=== PATIENT | female | born 1960 | race Two or more races ===

== ENCOUNTER 2020-03-03 08:37 | Day surgery (SDC) | payer OTHER, SELFPAY ==
[2020-02-26 09:42] VITALS: BMI 33.6
--- NOTE | 2020-02-26 15:22 | HO.ANESPROP2 ---
Documented by User: Olga Smith 02/26/20 15:22 HPI - Anesthesia Eval Consult details Narrative: 60yo F for colonoscopy PMFSH Past Medical History Medical History Anxiety Arthritis Depression Elevated cholesterol HTN (hypertension) Urinary incontinence Surgical History Surgical History H/O lumbar discectomy H/O tubal ligation H/O: hysterectomy History of bladder suspension procedure History of repair of rectocele History of sleeve gastrectomy History of total bilateral knee replacement (TKR) Hx of abdominoplasty Hx of arthroscopic knee surgery Hx of blepharoplasty Hx of colonoscopy S/P Botox injection S/P trigger finger release Social History Social History Smoking Status: Current every day smoker Years Smoked: 40 Smoked in Last 30 Days: Yes Use of substances other than those prescribed or required for medical reasons: No Advance Directives Information Provided: No Recently lost weight without trying: No Meds Allergies Allergy/AdvReac Type Severity Reaction Status Date / Time No Known Allergies Allergy Verified 02/26/20 09:54 [No Known Allergies*] Home Medications Medication Instructions Recorded Confirmed Type amlodipine 5 mg PO DAILY 02/26/20 03/03/20 History bisacodyl [Dulcolax (bisacodyl)] 10 mg PO BID 02/26/20 02/26/20 History escitalopram oxalate [Lexapro] 20 mg PO DAILY 02/26/20 02/26/20 History linaclotide [Linzess] 145 mcg PO QAM 02/26/20 02/26/20 History lorazepam 1 mg PO BID PRN 02/26/20 02/26/20 History pravastatin 80 mg PO BEDTIME 02/26/20 02/26/20 History trazodone 100 mg PO BEDTIME 02/26/20 02/26/20 History ziprasidone HCl [Geodon] 20 mg PO BID 02/26/20 02/26/20 History Exam Exam Date and Time: February 26, 2020 1522 Height,Weight and Vital Signs: Height 5 ft 5 in Weight 91.626 kg Assessment and Plan Assessment Anesthesia Assessment: Chart Reviewed Documented by User: Suyapa Palacios 03/03/20 09:21 PMFSH Past Medical History Medical History Anxiety Arthritis Depression Elevated cholesterol HTN (hypertension) Urinary incontinence Surgical History Surgical History H/O lumbar discectomy H/O tubal ligation H/O: hysterectomy History of bladder suspension procedure History of repair of rectocele History of sleeve gastrectomy History of total bilateral knee replacement (TKR) Hx of abdominoplasty Hx of arthroscopic knee surgery Hx of blepharoplasty Hx of colonoscopy S/P Botox injection S/P trigger finger release Social History Social History Smoking Status: Current every day smoker Years Smoked: 40 Smoked in Last 30 Days: Yes Use of substances other than those prescribed or required for medical reasons: No Advance Directives Information Provided: No Recently lost weight without trying: No Meds Allergies Allergy/AdvReac Type Severity Reaction Status Date / Time No Known Allergies Allergy Verified 02/26/20 09:54 [No Known Allergies*] Home Medications Medication Instructions Recorded Confirmed Type amlodipine 5 mg PO DAILY 02/26/20 03/03/20 History bisacodyl [Dulcolax (bisacodyl)] 10 mg PO BID 02/26/20 02/26/20 History escitalopram oxalate [Lexapro] 20 mg PO DAILY 02/26/20 02/26/20 History linaclotide [Linzess] 145 mcg PO QAM 02/26/20 02/26/20 History lorazepam 1 mg PO BID PRN 02/26/20 02/26/20 History pravastatin 80 mg PO BEDTIME 02/26/20 02/26/20 History trazodone 100 mg PO BEDTIME 02/26/20 02/26/20 History ziprasidone HCl [Geodon] 20 mg PO BID 02/26/20 02/26/20 History Exam Airway Mallampati Class: II TM Dist: >3cm Neck ROM: Full
[2020-03-03 08:50] VITALS: BP 118/68; PULSE 70; RESP 20; TEMP 36.3; O2SAT 94
[2020-03-03] MEDS: Lactated Ringers 1,000 ML 100 ML IVCONT (09:07)
--- NOTE | 2020-03-03 09:26 | MHC.SHP ---
Pre-Procedural Eval Section B Chief Complaint: screening Allergies: Allergies Allergy/AdvReac Type Severity Reaction Status Date / Time No Known Allergies Allergy Verified 02/26/20 09:54 [No Known Allergies*] Plan Patient has been examined and remains a candidate for the planned procedure--yes
--- NOTE | 2020-03-03 10:12 | PM.OP ---
Brief Operative Note Date of procedure: 03/03/20 Pre-op diagnosis: Colon cancer screening, Hx tubular adenoma Post-op diagnosis: same Procedure: Colonoscopy with excisional polypectomy with Cold bx forceps Implants: NONE Surgeon: Nicky Toledo MD Anesthesia: MAC (MARIELA Briscoe) Estimated blood loss (mL): 5 Pathology: other (Polyp @ 52cm) Condition: stable Disposition: PACU
[2020-03-03 10:17] VITALS: BP 100/54; PULSE 67; RESP 16; TEMP 36.1; O2SAT 95
[2020-03-03 10:32] VITALS: BP 104/52; PULSE 62; RESP 16; O2SAT 94
[2020-03-03 10:45] VITALS: BP 132/75; PULSE 61; RESP 16; TEMP 36.1; O2SAT 95
--- NOTE | 2020-03-03 11:01 | HO.POSTANES ---
Post Anesthesia Evaluation Post Anesthesia Evaluation Vital Signs: Vital Signs Temp Pulse Resp BP Pulse Ox 03/03/20 10:45 97 F 61 16 132/75 95 03/03/20 10:32 62 16 104/52 L 94 03/03/20 10:17 97 F 67 16 100/54 L 95 03/03/20 08:50 97.4 F 70 20 118/68 94 Anesthesia: Monitored Mental Status: Awake Pain Control: Satisfactory Nausea/Vomiting: None Hydration: Adequate Anesthesia-Related Issues: No Anes. Related Issues
--- NOTE | 2020-03-04 01:14 | OP_ITS ---
SURGEON: Nicky Toledo MD PROCEDURE PERFORMED: Colonoscopy with excisional polypectomy with the use of the cold biopsy forceps. ESTIMATED BLOOD LOSS: Minimal. COMPLICATIONS: No complications. ANESTHESIA: Monitored. ANESTHESIA Pavel Briscoe CRNA. ASSISTANTS: No customer service assistant. SPECIMENS: Specimens removed; diminutive polyp at 52 cm. PREOPERATIVE DIAGNOSES: History of tubular adenoma, colon cancer screening, symptomatic constipation. POSTOPERATIVE DIAGNOSES: Colonic polyp, minor diverticulosis in the region of the rectosigmoid. POWERHOUSE ENGINEER: Dr. Toledo. FINDINGS: Digital rectal exam revealed slightly decreased sphincter tone. No masses were appreciated. Video colonoscope was introduced without difficulty; however, there was slow movement through the region of the angle of the rectosigmoid, which was significantly difficult to distend. We switched from CO2 to air insufflation in slight movement of the patient from her left side to approximately a 45 degrees angle toward her back and we were slowly able to pass through what seem to be a telescoped (question prolapsed) area of the rectosigmoid and distal sigmoid colon. Eventually, we arrived at the descending colon. We were able to easily facilitate movement through transverse, ascending colon down into the cecal cap. Appendiceal orifice was seen. Ileocecal valve was seen. The prep was excellent. Good mucosal detail was seen. Slow removal of the scope. Polyp was identified and was removed excisionally from the region of 52 cm. No additional lesions were seen. Anorectal verge was clear. There were minor diverticula noted in the region of the rectosigmoid. PLAN AND CURRENT RECOMMENDATIONS: With history of tubular adenomas, she is to continue 5-year asymptomatic screening. GRAFT OR IMPLANTS: No grafts or implants. CONDITION: Postprocedure, stable. Nicky Toledo MD MEN/MODL / [id number] MTDD
== END 2020-03-03 11:05 | disposition home or self-care (01) ==
PROVIDERS: PCP Internal Medicine; Visit Provider Internal Medicine Gastroenterology
PROC: 0DJD8ZZ Inspection of Lower Intestinal Tract, Via Natural or Artificial Opening Endoscopic (ICD-10-PCS; CPT 45378; principal; 2020-03-03 09:30)
DX: Z12.11 Encounter for screening for malignant neoplasm of colon (principal); Z86.010 Personal history of colon polyps; D12.5 Benign neoplasm of sigmoid colon; I10 Essential (primary) hypertension; F33.9 Major depressive disorder, recurrent, unspecified; E78.00 Pure hypercholesterolemia, unspecified; Z79.51 Long term (current) use of inhaled steroids; Z79.899 Other long term (current) drug therapy
CPT/HCPCS: 45380; 88305

== ENCOUNTER → 2020-05-24 09:39 | Outpatient (BNVA) | payer OTHER, SELFPAY | PROVIDERS: PCP Internal Medicine; Visit Provider Nurse Practitioner | DX: Z13.89 Encounter for screening for other disorder (principal) | CPT/HCPCS: Q3014 ==

== ENCOUNTER 2020-09-23 15:03 | Outpatient (REF) | payer OTHER, SELFPAY ==
[2020-09-23 16:15] LABS: Alanine Aminotransferase 21 U/L (0-31); Albumin Level 4.5 g/dL (3.5-5.0); Alkaline Phosphatase 94 U/L (39-117); Anion Gap 15 (12-20); Aspartate Amino Transferase 16 U/L (5-31); Bilirubin Total 0.3 mg/dL (0.0-1.0); Blood Urea Nitrogen 9 mg/dL (9-16); Calcium 9.5 mg/dL (8.4-10.2); Carbon Dioxide 29 mmol/L (22-29); Chloride 101 mmol/L (96-108); Cholesterol 217 mg/dL; Estimated Glomerular Filt Rate > 60; Glucose Random 85 mg/dL (60-115); HDL Cholesterol 40 mg/dL; LDL Cholesterol Calculated 133 mg/dl; Potassium 4.4 mmol/L (3.3-5.1); Sodium 141 mmol/L (135-145); Total Protein 7.7 g/dL (6.5-8.0); Triglycerides 221 mg/dL
[2020-09-23 16:49] LABS: Estimated Average Glucose 111 mg/dL; Hemoglobin A1c % 5.5 %
== END 2020-09-23 15:04 | disposition home or self-care (01) ==
LOC: HO.LAB 15:03
PROVIDERS: PCP Internal Medicine; Visit Provider Internal Medicine
DX: E78.2 Mixed hyperlipidemia (principal); I10 Essential (primary) hypertension; M54.5 Low back pain; R73.01 Impaired fasting glucose
CPT/HCPCS: 36415; 80053; 80061; 83036

== ENCOUNTER 2020-10-07 08:04 | Outpatient (REF) | payer OTHER, SELFPAY ==
--- NOTE | ~2020-10-07 | XR_ITS ---
EXAMINATION: XR SHOULDER, RIGHT CLINICAL INFORMATION: Pain COMPARISON: None TECHNIQUE: 3 views of the right shoulder. FINDINGS: Bone alignment is normal. No fracture or dislocation is seen. The joint space is normal. There is arthritis at the acromioclavicular joint. There is an undersurface acromial osteophyte. Soft tissues are unremarkable. XR/XR shoulder RT min 2V IMPRESSION: Arthritis at the acromioclavicular joint and undersurface acromial osteophyte.
== END 2020-10-07 08:05 | disposition home or self-care (01) ==
LOC: HO.HOSX 08:04
PROVIDERS: Visit Provider Physician Assistant
DX: M75.81 Other shoulder lesions, right shoulder (principal); M25.511 Pain in right shoulder
CPT/HCPCS: 20610; 73030; 99202; J1040

== ENCOUNTER 2020-12-07 17:08 | Emergency (ER) | payer OTHER, SELFPAY ==
[2020-12-07 17:14] VITALS: BP 196/100; PULSE 108; RESP 18; TEMP 36.6; O2SAT 97; BMI 36.0
[2020-12-07 17:36] VITALS: BP 194/101; PULSE 102; RESP 182; TEMP 37.8; O2SAT 95
[2020-12-07 17:40] LABS: Glucose Urine UA NEG (NEG); Leukocyte Esterase Urine 3+ (NEG); Nitrite Urine NEG (NEG); PH 6.5 (5.0-8.0); Specific Gravity - Urine 1.015 (1.005-1.025); UACC Culture Trigger YES; Urine Blood 3+ (NEG); Urine Ketones NEG (NEG); Urine Protein 2+ MG/DL (NEG-TRACE)
[2020-12-07 17:47] LABS: Appearance Urine CLOUDY; Color Urine YELLOW
--- NOTE | 2020-12-07 17:51 | ED_ITS ---
HPI - Female Genitourinary General Chief complaint: Urogenital-Female Stated complaint: uti ? Time Seen by Provider: 12/07/20 17:38 Related Data Home Medications Medication Instructions Recorded Confirmed amlodipine 5 mg tablet 5 mg PO DAILY 02/26/20 03/03/20 bisacodyl 5 mg tablet,delayed 10 mg PO BID 02/26/20 02/26/20 release (Dulcolax (bisacodyl)) escitalopram oxalate 20 mg tablet 20 mg PO DAILY 02/26/20 02/26/20 (Lexapro) lorazepam 1 mg tablet 1 mg PO BID PRN 02/26/20 02/26/20 pravastatin 80 mg tablet 80 mg PO BEDTIME 02/26/20 02/26/20 trazodone 100 mg tablet 100 mg PO BEDTIME 02/26/20 02/26/20 ziprasidone HCl 20 mg capsule 20 mg PO BID 02/26/20 02/26/20 (Geodon) Previous Rx's Medication Instructions Recorded linaclotide 72 mcg capsule 72 mcg PO QAM #30 cap 05/24/20 (Linzess) phenazopyridine 200 mg tablet 200 mg PO TID 3 Days #9 tab 12/07/20 (Pyridium) sulfamethoxazole 800 1 tab PO BID 7 Days #14 tab 12/07/20 mg-trimethoprim 160 mg tablet (Bactrim DS) Allergies Allergy/AdvReac Type Severity Reaction Status Date / Time No Known Allergies Allergy Verified 10/07/20 11:41 [No Known Allergies*] Review of Systems Constitutional: Constitutional: Denies weight gain and Denies weight loss Cardiovascular: Cardiovascular: Reports no additional cardiovascular complaints Respiratory: Respiratory: Reports no additional respiratory complaints Gastrointestinal: Gastrointestinal: Denies abdominal pain, Denies belching, Denies melena, Denies bloating, Denies change in bowel habits, Denies dyspepsia, Denies heartburn, Denies nausea and Denies vomiting Genitourinary: Genitourinary: Reports dysuria, Reports urinary incontinence, Reports urinary hesitancy and Reports urinary urgency Neurologic: Reports system reviewed and no additional complaints, except as documented Psychiatric: Psychiatric: Reports no additional psychiatric complaints PMFSH Past Medical History Medical History Anxiety Arthritis Depression Elevated cholesterol HTN (hypertension) Urinary incontinence Surgical History H/O lumbar discectomy H/O tubal ligation H/O: hysterectomy History of bladder suspension procedure History of repair of rectocele History of sleeve gastrectomy History of total bilateral knee replacement (TKR) Hx of abdominoplasty Hx of arthroscopic knee surgery Hx of blepharoplasty Hx of colonoscopy S/P Botox injection S/P trigger finger release Family History Family History Father Diabetes Heart disease Mother Diabetes Heart disease Family/Other Diabetes Heart disease Social History Social History Household Members: None Alcohol intake: current Alcohol intake frequency: does not drink Cigarettes Per Day: 2 Years Smoked: 40 Advance Directives: No Advance Directives Information Provided: Yes Patient : No Current occupation: right handed Physical Exam Vital Signs: Vital Signs: Last Vital Signs Temp 99.6 F 12/07/20 18:36 Pulse 90 12/07/20 18:36 Resp 18 12/07/20 18:36 BP 213/106 H 12/07/20 18:36 Pulse Ox 96 12/07/20 18:36 Body Mass Index 36.0 Const: General: healthy appearing, no acute distress and well developed Nutritional Appearance: well nourished Orientation/consciousness: patient oriented x3 Neck: Neck: Yes normal visual inspection, Yes full ROM and Yes trachea midline Thyroid: Thyroid normal Resp: Auscultation: clear to auscultation bilaterally Cardio: Rate: regular rate Rhythm: regular rhythm GI: Inspection: Yes normal to inspection and No distended Palpation (GI): No hepatosplenomegaly present Auscultation: normal bowel sounds Skin: General skin exam: elasticity normal, turgor normal and dry skin Neuro: General: patient oriented x3 Course Course Course Narrative: 61-year-old female with past medical history of right rotator cuff tendinitis, tubular adenoma of colon, abdominal bloating, chronic constipation and history of UTIs presenting today with urinary frequency, foul- smelling urine, pain and burning during urination. Patient reports that she gets urinary tract infection every few months. Patient denies any GI symptoms. Denies any blood in her urine. Denies any vaginal discharge. Patient reports that she does have overactive bladder and has been seen by Urology in the past. Patient denies any fever or chills. She reports that she has been drinking plenty fluids. I will obtain a urinalysis. Patient will receive ibuprofen for discomfort. Reevaluation(s) Reevaluation #1: Positive leukocyte, 2+ urine bacteria, 76-150 urine WBC's. Will treat her with Bactrim and Pyridium. Patient does report painful urination. Will send her home with Bactrim for 7 days twice a day as well as Pyridium 3 times a day for 3 days. MDM - Female Genitourinary Lab Data Labs: Lab Results 12/07/20 Range/Units 17:25 Urine Color YELLOW Urine Appearance CLOUDY Urine pH 6.5 (5.0-8.0) Ur Specific [place] 1.015 (1.005-1.025) Urine Protein 2+ H (NEG-TRACE) MG/DL Urine Glucose (UA) NEG (NEG) MG/DL Urine Ketones NEG (NEG) MG/DL Urine Blood 3+ H (NEG) Urine Nitrite NEG (NEG) Ur Leukocyte Esterase 3+ H (NEG) Urine RBC 5-9 H (0) /HPF Urine WBC 76-150 H (0-4) /HPF Ur Squamous Epith Cells TRACE /LPF Urine Bacteria 2+ /LPF Discharge Plan Discharge Clinical Impression: Urinary tract infection Patient Disposition: Home, Self-Care Instructions: Urinary Tract Infection in Women (ED), Urinary Urgency and Frequency (DC) Additional Instructions: You were seen here today for urinary frequency and pain with urination. Your treated with antibiotic and medication to help with pain. Your urine is positive for infection. Please take the antibiotic for 7 days. Take your pain medication for 3 days. This medication might change your urine orange. Make sure you drink plenty fluids. Please follow-up with your urologist in 2-3 days Your blood pressure was high today. Please call your primary care provider so she can adjust your medication. You may return to emergency department if you develop any concerning symptoms. Prescriptions: New sulfamethoxazole-trimethoprim [Bactrim DS] 800-160 mg tablet 1 tab PO BID 7 Days Qty: 14 RF: 0 phenazopyridine [Pyridium] 200 mg tablet 200 mg PO TID 3 Days Qty: 9 RF: 0 No Action amlodipine 5 mg Tablet 5 mg PO DAILY RF: 0 ziprasidone HCl [Geodon] 20 mg Capsule 20 mg PO BID RF: 0 pravastatin 80 mg Tablet 80 mg PO BEDTIME RF: 0 trazodone 100 mg Tablet 100 mg PO BEDTIME RF: 0 bisacodyl [Dulcolax (bisacodyl)] 5 mg Tablet,Delayed Release (Dr/Ec) 10 mg PO BID RF: 0 lorazepam 1 mg Tablet 1 mg PO BID PRN (Reason: Anxiety) RF: 0 escitalopram oxalate [Lexapro] 20 mg Tablet 20 mg PO DAILY RF: 0 Linzess 72 mcg capsule 72 mcg PO QAM Qty: 30 RF: 6 Referrals: Sudha Block MD [Physician] - 2 days Ayan Flores III, MD [Physician] - 2 days Interventions: ED Discharge Assessment Last Done: 12/07/20 20:02 Discharge Date/Time: 12/07/20 20:05
[2020-12-07 18:00] LABS: Bacteria Urine 2+ /LPF; Squamous Epithelial Cell Urine TRACE /LPF
[2020-12-07] MEDS: Ibuprofen 600 MG TABLET PO (18:02)
[2020-12-07 18:36] VITALS: BP 213/106; PULSE 90; RESP 18; TEMP 37.6; O2SAT 96
--- NOTE | 2020-12-07 18:37 | PC.NURSE ---
patient states that after going to the bathroom recently she found a little bit of light red blood in her urine. RN aware.
[2020-12-07] MEDS: Phenazopyridine HCL 200 MG TABLET PO (19:37)
--- NOTE | 2020-12-07 20:00 | PC.NURSE ---
COMPOSITION PROFESSOR AWARE OF VS AND STATES PT WILL NEED TO F/U WITH PCP TOMORROW AND HAVE HER BP MEDICATION EVALUATED.
== END 2020-12-07 20:05 | disposition home or self-care (01) ==
PROVIDERS: Emergency Provider Emergency Medicine
DX: R35.0 Frequency of micturition (principal); R30.0 Dysuria; F17.210 Nicotine dependence, cigarettes, uncomplicated; Z71.6 Tobacco abuse counseling; I10 Essential (primary) hypertension; Z79.899 Other long term (current) drug therapy
CPT/HCPCS: 81001; 81003; 87086; 87088; 87186; 99284

== ENCOUNTER 2020-12-09 19:10 | Emergency (ER) | payer OTHER, SELFPAY ==
[2020-12-09 19:27] VITALS: BP 189/100; PULSE 107; RESP 18; TEMP 36.6; O2SAT 96; BMI 34.3
--- NOTE | 2020-12-09 22:11 | ED_ITS ---
HPI - General Adult General Chief complaint: Headache Stated complaint: high bp Time Seen by Provider: 12/09/20 22:11 Source: patient Mode of arrival: ambulatory Limitations: no limitations History of Present Illness HPI narrative: Patient has history of hypertension felt dizzy had high blood pressure at home noted to be 189/100 when triaged recheck blood pressure was 148/74 but patient feels lousy. Patient is on losartan and amlodipine. Patient denied any nausea/vomiting/stress or anxiety Related Data Home Medications Medication Instructions Recorded Confirmed amlodipine 5 mg PO DAILY 02/26/20 03/03/20 bisacodyl [Dulcolax (bisacodyl)] 10 mg PO BID 02/26/20 02/26/20 escitalopram oxalate [Lexapro] 20 mg PO DAILY 02/26/20 02/26/20 lorazepam 1 mg PO BID PRN 02/26/20 02/26/20 pravastatin 80 mg PO BEDTIME 02/26/20 02/26/20 trazodone 100 mg PO BEDTIME 02/26/20 02/26/20 ziprasidone HCl [Geodon] 20 mg PO BID 02/26/20 02/26/20 Previous Rx's Medication Instructions Recorded linaclotide 72 mcg capsule 72 mcg PO QAM #30 cap 05/24/20 phenazopyridine [Pyridium] 200 mg PO TID 3 Days #9 tab 12/07/20 sulfamethoxazole-trimethoprim 1 tab PO BID 7 Days #14 tab 12/07/20 [Bactrim DS] Allergies Allergy/AdvReac Type Severity Reaction Status Date / Time No Known Allergies Allergy Verified 10/07/20 11:41 [No Known Allergies*] Review of Systems Review of Systems: Constitutional : No Weight loss, No Fever, No Chills ENT/Mouth : No sore throat, No Rhinorrhea Eyes: No Eye Pain, No Swelling Cardiovascular : No Chest Pain, no palpitations Respiratory : No Cough, No Sputum, no shortness of breath Gastrointestinal : no Nausea, No Vomiting, No Diarrhea, No abdominal Pain, no black stools Genitourinary : No Dysuria, No Urinary Frequency Musculoskeletal : No joint pain, No Myalgias, No Joint Swelling Skin : No Skin Lesions, No rash Neuro : No Weakness, No Numbness, No Dizziness, + Headache Psych : No Anxiety/Panic, No Depression Heme/Lymph: No Bruising, No Lymphadenopathy Endocrine : No Polyuria, No Polydipsia All other systems reviewed and are negative [facility] Past Medical History Medical History Anxiety Arthritis Depression Elevated cholesterol HTN (hypertension) Urinary incontinence Surgical History H/O lumbar discectomy H/O tubal ligation H/O: hysterectomy History of bladder suspension procedure History of repair of rectocele History of sleeve gastrectomy History of total bilateral knee replacement (TKR) Hx of abdominoplasty Hx of arthroscopic knee surgery Hx of blepharoplasty Hx of colonoscopy S/P Botox injection S/P trigger finger release Family History Family History Father Diabetes Heart disease Mother Diabetes Heart disease Family/Other Diabetes Heart disease Social History Social History Household Members: None Alcohol intake: current Alcohol intake frequency: does not drink Cigarettes Per Day: 2 Years Smoked: 40 Advance Directives: No Advance Directives Information Provided: Yes Patient : No Current occupation: right handed Physical Exam Vital Signs: Vital Signs: Last Vital Signs Temp 97.9 F 12/09/20 19:27 Pulse 95 12/09/20 23:39 Resp 16 12/09/20 23:39 BP 175/94 H 12/09/20 23:39 Pulse Ox 96 12/09/20 19:27 Body Mass Index 34.3 Appearance: Alert. Oriented X3. No acute distress. Eyes: PERRLA, No Nystagmus ENT: Pharynx normal. Oral Mucosa moist Neck: Normal inspection. Neck supple. CVS: Normal heart rate and rhythm. Pulses normal. Respiratory: No respiratory distress. Equal air entry bilateral, no wheezing/rales/rhonchi Abdomen: Soft and nontender. Bowel sounds are present, no mass palpable, no CVA tenderness Skin: Skin warm and dry. Normal skin color. Normal skin turgor. Extremities: No lower extremity edema. No calf tenderness Neuro: Oriented X 3. No motor deficit. No sensory deficit.No cerebellar signs , cranial nerves II-XII intact Medical Decision Making MDM Narrative Medical decision making narrative: Patient essential hypertension with fluctuating blood pressure before discharge patient's blood pressure increased to 175/94. Patient taking 10 mg of amlodipine unknown dose of losartan. Patient advised to follow with her doctor check blood pressure daily and if blood pressure persistently high maybe take extra dose of losartan and follow with PCP Lab Data Lab results reviewed: Yes I reviewed the patient's lab results. Result diagrams: 12/09/20 22:49 12/09/20 22:49 Labs: Lab Results 12/09/20 12/09/20 Range/Units 22:49 22:49 WBC 6.6 (4.8-10.8) X10*3/uL RBC 4.54 (4.20-5.50) X10*6/uL Hgb 13.1 (12.0-16.0) g/dl Hct 39.4 (37-47) % MCV 86.8 (80-98) fL MCH 28.9 (27.0-33.0) pg MCHC 33.2 (31.0-35.0) g/dl RDW 14.1 (11.0-16.0) % Plt Count 228 (160-400) X10*3/uL MPV 12.0 (9.4-12.3) fL Immature Gran % (Auto) 0.3 (0.0-0.4) % Neut % (Auto) 74.5 H (45-73) % Lymph % (Auto) 15.2 L (20-40) % [place] % (Auto) 7.0 (2-11) % Eos % (Auto) 2.4 (0-4) % Baso % (Auto) 0.6 (0-2) % Lymph # (Auto) 1.0 L (1.2-4.9) X10*3/uL [place] # (Auto) 0.5 (0.1-1.2) X10*3/uL Eos # (Auto) 0.2 (0.0-0.4) X10*3/uL Baso # (Auto) 0.0 (0.0-0.2) X10*3/uL Abs Immat Gran (auto) 0.02 (0.00-0.03) X10*3/uL Absolute Neuts (auto) 4.9 (2.0-8.3) X10*3/uL Absolute Nucleated RBC 0.000 (0.0-0.012) X10*3/uL Nucleated RBC % (auto) 0.0 (0.0-0.2) /100WBC Sodium 140 (135-145) mmol/L Potassium 4.0 (3.3-5.1) mmol/L Chloride 101 (96-108) mmol/L Carbon Dioxide 26 (22-29) mmol/L Anion Gap 17 (12-20) BUN 7 L (9-16) mg/dL Creatinine 0.97 (0.5-1.4) mg/dL Estim Creat Clear Calc 65.5 Estimated GFR 58 Random Glucose 98 (60-115) mg/dL Calcium 9.7 (8.4-10.2) mg/dL Total Bilirubin 0.6 (0.0-1.0) mg/dL AST 14 (5-31) U/L ALT 19 (0-31) U/L Alkaline Phosphatase 91 (39-117) U/L Total Protein 7.8 (6.5-8.0) g/dL Albumin 4.5 (3.5-5.0) g/dL Discharge Plan Discharge Clinical Impression: Hypertension Qualifiers: Hypertension type: primary hypertension Qualified Code(s): I10 - Essential (primary) hypertension Patient Disposition: Home, Self-Care Instructions: Chronic Hypertension (ED) Additional Instructions: Continue taking medication for blood pressure as prescribed check blood pressure daily should be less than 140/90. Follow up with PCP Prescriptions: No Action amlodipine 5 mg Tablet 5 mg PO DAILY RF: 0 ziprasidone HCl [Geodon] 20 mg Capsule 20 mg PO BID RF: 0 pravastatin 80 mg Tablet 80 mg PO BEDTIME RF: 0 trazodone 100 mg Tablet 100 mg PO BEDTIME RF: 0 bisacodyl [Dulcolax (bisacodyl)] 5 mg Tablet,Delayed Release (Dr/Ec) 10 mg PO BID RF: 0 lorazepam 1 mg Tablet 1 mg PO BID PRN (Reason: Anxiety) RF: 0 escitalopram oxalate [Lexapro] 20 mg Tablet 20 mg PO DAILY RF: 0 sulfamethoxazole-trimethoprim [Bactrim DS] 800-160 mg tablet 1 tab PO BID 7 Days Qty: 14 RF: 0 phenazopyridine [Pyridium] 200 mg tablet 200 mg PO TID 3 Days Qty: 9 RF: 0 Linzess 72 mcg capsule 72 mcg PO QAM Qty: 30 RF: 6
[2020-12-09 22:55] LABS: Basophils Percent Auto 0.6 % (0-2); Eosinophils Absolute Auto 0.2 X10*3/uL (0.0-0.4); Eosinophils Percent Auto 2.4 % (0-4); Hematocrit 39.4 % (37-47); Hemoglobin 13.1 g/dl (12.0-16.0); Imm Gran Abs Auto 0.02 X10*3/uL (0.00-0.03); Imm Gran Pct Auto 0.3 % (0.0-0.4); Lymphocytes Percent Auto 15.2 % (20-40); MANUAL DIFF FLAG NO; Mean Corpuscular HGB Conc 33.2 g/dl (31.0-35.0); Mean Corpuscular Hemoglobin 28.9 pg (27.0-33.0); Mean Corpuscular Volume 86.8 fL (80-98); Monocytes Absolute Auto 0.5 X10*3/uL (0.1-1.2); Neutrophils Absolute Auto 4.9 X10*3/uL (2.0-8.3); Neutrophils Percent Auto 74.5 % (45-73); Platelet Count 228 X10*3/uL (160-400); Red Blood Count 4.54 X10*6/uL (4.20-5.50); Red Cell Distribution Width 14.1 % (11.0-16.0); White Blood Count 6.6 X10*3/uL (4.8-10.8)
[2020-12-09 23:24] LABS: Alanine Aminotransferase 19 U/L (0-31); Albumin Level 4.5 g/dL (3.5-5.0); Alkaline Phosphatase 91 U/L (39-117); Anion Gap 17 (12-20); Aspartate Amino Transferase 14 U/L (5-31); Bilirubin Total 0.6 mg/dL (0.0-1.0); Blood Urea Nitrogen 7 mg/dL (9-16); Calcium 9.7 mg/dL (8.4-10.2); Carbon Dioxide 26 mmol/L (22-29); Chloride 101 mmol/L (96-108); Creatinine Clr Calc Pharmacy 65.5; Estimated Glomerular Filt Rate 58; Glucose Random 98 mg/dL (60-115); Sodium 140 mmol/L (135-145); Total Protein 7.8 g/dL (6.5-8.0)
[2020-12-09 23:39] VITALS: BP 175/94; PULSE 95; RESP 16
[2020-12-09] MEDS: Acetaminophen 325 MG TABLET 650 MG PO (23:43)
== END 2020-12-10 00:06 | disposition home or self-care (01) ==
PROVIDERS: Emergency Provider Internal Medicine; PCP Internal Medicine
DX: I10 Essential (primary) hypertension (principal); Z79.899 Other long term (current) drug therapy
CPT/HCPCS: 36415; 80053; 85025; 99283; 99284

== ENCOUNTER 2021-03-06 13:07 | Outpatient (REF) | payer OTHER, SELFPAY ==
[2021-03-06 14:02] LABS: Alanine Aminotransferase 26 U/L (0-31); Albumin Level 4.2 g/dL (3.5-5.0); Alkaline Phosphatase 80 U/L (39-117); Anion Gap 12 (12-20); Aspartate Amino Transferase 21 U/L (5-31); Bilirubin Total 0.6 mg/dL (0.0-1.0); Blood Urea Nitrogen 7 mg/dL (9-16); Calcium 9.2 mg/dL (8.4-10.2); Carbon Dioxide 26 mmol/L (22-29); Chloride 108 mmol/L (96-108); Cholesterol 174 mg/dL; Estimated Glomerular Filt Rate > 60; Glucose Random 98 mg/dL (60-115); HDL Cholesterol 37 mg/dL; LDL Cholesterol Calculated 118 mg/dl; Potassium 4.3 mmol/L (3.3-5.1); Sodium 142 mmol/L (135-145); Total Protein 7.1 g/dL (6.5-8.0); Triglycerides 95 mg/dL
[2021-03-06 14:24] LABS: Thyroid Stimulating Hormone 1.91 uIU/mL (0.32-4.0)
== END 2021-03-06 13:08 | disposition home or self-care (01) ==
LOC: HO.LAB 13:07
PROVIDERS: PCP Internal Medicine; Visit Provider Internal Medicine
DX: E78.2 Mixed hyperlipidemia (principal); S43.421A Sprain of right rotator cuff capsule, initial encounter; R53.83 Other fatigue
CPT/HCPCS: 36415; 80053; 80061; 84443

== ENCOUNTER 2021-06-12 14:54 | Outpatient (REF) | payer OTHER, SELFPAY ==
[2021-06-12 15:47] LABS: Binax Internal Control QC Valid; Binax Now Covid-19 Ag Positive (Negative)
== END 2021-06-12 14:55 | disposition home or self-care (01) ==
LOC: HO.LAB 14:54
PROVIDERS: Visit Provider Internal Medicine
DX: Z20.822 Contact with and (suspected) exposure to COVID-19 (principal)
CPT/HCPCS: C9803

== ENCOUNTER 2021-09-12 14:02 | Emergency (ER) | payer OTHER, SELFPAY ==
--- NOTE | ~2021-09-12 | XR_ITS ---
EXAMINATION: XR CHEST CLINICAL INFORMATION: Chest pain, shortness of breath COMPARISON: 11/25/2018 TECHNIQUE: 2 views of the chest were obtained. FINDINGS: No focal consolidation, pulmonary edema, or pleural effusion. Stable cardiomediastinal silhouette. XR/XR chest 2V IMPRESSION: No acute cardiopulmonary findings.
[2021-09-12 15:00] VITALS: BP 156/87; PULSE 66; RESP 16; TEMP 36.9; O2SAT 96; BMI 33.3
[2021-09-12 15:32] LABS: COVID-19 Test Negative (Negative); Influenza A Negative (Negative); Influenza B2 Negative (Negative)
--- NOTE | 2021-09-12 16:05 | ECG_ITS ---
Test Reason : sob Blood Pressure : / mmHG Vent. Rate : 065 BPM Atrial Rate : 065 BPM P-R Int : 210 ms QRS Dur : 098 ms QT Int : 448 ms P-R-T Axes : 053 000 040 degrees QTc Int : 465 ms Sinus rhythm with sinus arrhythmia with 1st degree A-V block Otherwise normal ECG When compared with ECG of 25-NOV-2018 17:37, NC interval has increased Referred By: Bettye Coreas Electronically Signed By:MICHAEL GUTIERREZ MD
--- NOTE | 2021-09-12 16:06 | ED.SOB ---
HPI - SOB/Dyspnea General Chief Complaint: Upper Respiratory Symptoms Stated Complaint: Covid symptoms Time Seen by Provider: 09/12/21 15:56 Source: patient Mode of arrival: ambulatory Limitations: no limitations History of Present Illness HPI Narrative: Patient presents to the emergency department for evaluation of persistent headache, nonproductive cough, shortness of breath, dyspnea on exertion, and intermittent chest pain. Symptoms present for 10 days. Progressively worsening. Chest pain intermittently at times is worsened by cough and deep breathing but at other times is not. She has been taking DayQuil without improvement. Denies any known sick contacts. Has been vaccinated for COVID-19 x2, has not received influenza vaccine. MD elicited complaint: shortness of breath, cough, pain with inspiration and chest pain Onset (ago): day(s) () Timing: progressively worsening Related Data Home Medications Medication Instructions Recorded Confirmed amlodipine 5 mg tablet 5 mg PO DAILY 02/26/20 03/03/20 bisacodyl 5 mg tablet,delayed 10 mg PO BID 02/26/20 02/26/20 release (Dulcolax (bisacodyl)) escitalopram oxalate 20 mg tablet 20 mg PO DAILY 02/26/20 02/26/20 (Lexapro) lorazepam 1 mg tablet 1 mg PO BID PRN 02/26/20 02/26/20 pravastatin 80 mg tablet 80 mg PO BEDTIME 02/26/20 02/26/20 trazodone 100 mg tablet 100 mg PO BEDTIME 02/26/20 02/26/20 ziprasidone HCl 20 mg capsule 20 mg PO BID 02/26/20 02/26/20 (Geodon) Previous Rx's Medication Instructions Recorded linaclotide 72 mcg capsule 72 mcg PO QAM #30 cap 05/24/20 (Linzess) phenazopyridine 200 mg tablet 200 mg PO TID 3 Days #9 tab 12/07/20 (Pyridium) sulfamethoxazole 800 1 tab PO BID 7 Days #14 tab 12/07/20 mg-trimethoprim 160 mg tablet (Bactrim DS) albuterol sulfate 90 mcg/actuation 2 puff INHALATION Q4-6H PRN #6.7 g 09/12/21 aerosol inhaler amoxicillin 875 mg-potassium 1 tab PO Q12H 7 Days #14 tab 09/12/21 clavulanate 125 mg tablet prednisone 20 mg tablet 40 mg PO DAILY 5 Days #10 tab 09/12/21 Allergies Allergy/AdvReac Type Severity Reaction Status Date / Time No Known Allergies Allergy Verified 10/07/20 11:41 [No Known Allergies*] Review of Systems Review of Systems: Constitutional: Positive fatigue No weight loss, fever, chills, weakness HEENT: No visual loss, blurred vision, double vision or yellow sclera. No hearing loss, sneezing, congestion, runny nose or sore throat. Skin: No rash or itching. Cardiovascular: Positive chest pain No palpitations or pedal edema. Respiratory: Positive shortness of breath, positive dyspnea on exertion, positive cough Gastrointestinal: No anorexia, nausea, vomiting or diarrhea. No abdominal pain or blood in stool. Genitourinary: No burning micturition. No urinary frequency or incontinence. Neurologic: Positive headache No dizziness, syncope, unilateral weakness, ataxia, numbness or tingling in the extremities. Musculoskeletal: No muscle pain, back pain, joint pain or stiffness. Hematologic: No bleeding or bruising. Lymphatics: No enlarged lymph nodes. Psychiatric:No depression or anxiety. Endocrine: No polyuria or polydipsia. [facility] Past Medical History Attestation statement: The following information was validated with the patient. Source: old records reviewed Medical History Anxiety Arthritis Depression Elevated cholesterol HTN (hypertension) Urinary incontinence Surgical History H/O lumbar discectomy H/O tubal ligation H/O: hysterectomy History of bladder suspension procedure History of repair of rectocele History of sleeve gastrectomy History of total bilateral knee replacement (TKR) Hx of abdominoplasty Hx of arthroscopic knee surgery Hx of blepharoplasty Hx of colonoscopy S/P Botox injection S/P trigger finger release Family History Family History Father Diabetes Heart disease Mother Diabetes Heart disease Family/Other Diabetes Heart disease Social History Social History Household Members: None Alcohol intake: current Alcohol intake frequency: does not drink Cigarettes Per Day: 2 Years Smoked: 40 Advance Directives: No Advance Directives Information Provided: No Current occupation: right handed Physical Exam Vital Signs: Vital Signs: Last Vital Signs Temp 98.4 F 09/12/21 15:00 Pulse 66 09/12/21 15:00 Resp 16 09/12/21 15:00 BP 156/87 H 09/12/21 15:00 Pulse Ox 96 09/12/21 15:00 BMI result Body Mass Index 33.3 Vital signs have been reviewed and appeared to be correct. Blood pressure mildly elevated 156/87 Heart rate normal.? Respiration rate normal. Temperature normal.? Oxygen saturation normal. Appearance: Alert.?Oriented to person, place and time. No acute distress.?Normal affect. Eyes: Pupils equal, round and reactive to light.? ENT: Pharynx normal.?? Neck: Normal inspection.? Neck supple.?? CVS: Heart sounds normal. Normal heart rate and rhythm.? Pulses normal.?? Respiratory: No respiratory distress.? Lung sounds clear to auscultation bilaterally, except coarseness left lower lobe.? Abdomen: Soft and non-tender. Normoactive bowel sounds. No pulsatile mass.?? Skin: Skin warm and dry.? Normal skin color.? ? Extremities: No lower extremity edema.? No calf ttp? Neuro: Moves all extremities spontaneously. Sensation intact bilaterally. CN II-XII intact. No focal neuro deficits. Ambulates with normal steady gait. Course Course Course Narrative: Patient is a 61-year-old female with a past medical history of anxiety, arthritis, depression, hypercholesterolemia, hypertension presenting for evaluation head pressure, cough, shortness of breath dyspnea on exertion, intermittent pain. COVID-19 and influenza testing obtained from triage are both negative. Will obtain CBC to evaluate for leukocytosis/ anemia, CMP to evaluate for abnormal electrolytes /abnormal renal function/ abnormal hepatic function, EKG and troponin to evaluate for ischemia/ACS. Chest x-ray to evaluate for consolidation/ infiltrate/ mass/ pulmonary congestion. Disposition pending results. Reevaluation(s) Reevaluation #1: CBC overall unremarkable, CMP is normal. BNP 25. Troponin <3.5, EKG reveals sinus rhythm first-degree AV block, heart score 2, unlikely ACS, she reports that she is taking amlodipine in addition to losartan-HCTZ for her blood pressure. D-dimer 197, unlikely PE. Plan to treat for bronchitis with prednisone, albuterol inhaler, and Augmentin. Discussed reasons to return to the emergency department. Advised to follow-up with primary care provider in 1-3 days. All questions were answered. MDM - SOB/Dyspnea Medical Records Attestation: I reviewed the patient's medical records. Lab Data Attestation: I reviewed the patient's lab results. Result diagrams: 09/12/21 17:39 09/12/21 17:39 Labs: Lab Results 09/12/21 09/12/21 09/12/21 Range/Units 15:08 15:08 17:39 WBC 4.4 L (4.8-10.8) X10*3/uL RBC 4.34 (4.20-5.50) X10*6/uL Hgb 12.5 (12.0-16.0) g/dl Hct 38.2 (37.0-47.0) % MCV 88.0 (80.0-98.0) fL MCH 28.8 (27.0-33.0) pg MCHC 32.7 (31.0-35.0) g/dl RDW 13.4 (11.0-16.0) % Plt Count 237 (160-400) X10*3/uL MPV 10.9 (9.4-12.3) fL Immature Gran % (Auto) 0.5 H (0.0-0.4) % Neut % (Auto) 58.4 (45-73) % Lymph % (Auto) 31.0 (20-40) % Blount % (Auto) 6.4 (2-11) % Eos % (Auto) 2.8 (0-4) % Baso % (Auto) 0.9 (0-2) % Lymph # (Auto) 1.4 (1.2-4.9) X10*3/uL Blount # (Auto) 0.3 (0.1-1.2) X10*3/uL Eos # (Auto) 0.1 (0.0-0.4) X10*3/uL Baso # (Auto) 0.0 (0.0-0.2) X10*3/uL Abs Immat Gran (auto) 0.02 (0.00-0.03) X10*3/uL Absolute Neuts (auto) 2.5 (2.0-8.3) x10*3/uL Absolute Nucleated RBC 0.000 (0.0-0.012) X10*3/uL Nucleated RBC % (auto) 0.0 (0.0-0.2) /100WBC D-Dimer High Sensitivty NG/ML Sodium (135-145) mmol/L Potassium (3.3-5.1) mmol/L Chloride (96-108) mmol/L Carbon Dioxide (22-29) mmol/L Anion Gap (12-20) BUN (9-16) mg/dL Creatinine (0.5-1.4) mg/dL Estim Creat Clear Calc Estimated GFR Random Glucose (60-115) mg/dL Calcium (8.4-10.2) mg/dL Magnesium (1.6-2.6) mg/dL Total Bilirubin (0.0-1.0) mg/dL AST (5-31) U/L ALT (0-31) U/L Alkaline Phosphatase (39-117) U/L Troponin I High Sens (<3.5-17.0) ng/L B-Natriuretic Peptide (<100) pg/mL Total Protein (6.5-8.0) g/dL Albumin (3.5-5.0) g/dL COVID-19 (TERRY) Negative (Negative) COVID-19 Clin Com See Note Influenza Type A (NAYANA) Negative (Negative) Influenza Type B (NAYANA) Negative (Negative) Influenza A & B Note See Note 09/12/21 09/12/21 09/12/21 Range/Units 17:39 17:39 17:39 WBC (4.8-10.8) X10*3/uL RBC (4.20-5.50) X10*6/uL Hgb (12.0-16.0) g/dl Hct (37.0-47.0) % MCV (80.0-98.0) fL MCH (27.0-33.0) pg MCHC (31.0-35.0) g/dl RDW (11.0-16.0) % Plt Count (160-400) X10*3/uL MPV (9.4-12.3) fL Immature Gran % (Auto) (0.0-0.4) % Neut % (Auto) (45-73) % Lymph % (Auto) (20-40) % Blount % (Auto) (2-11) % Eos % (Auto) (0-4) % Baso % (Auto) (0-2) % Lymph # (Auto) (1.2-4.9) X10*3/uL Blount # (Auto) (0.1-1.2) X10*3/uL Eos # (Auto) (0.0-0.4) X10*3/uL Baso # (Auto) (0.0-0.2) X10*3/uL Abs Immat Gran (auto) (0.00-0.03) X10*3/uL Absolute Neuts (auto) (2.0-8.3) x10*3/uL Absolute Nucleated RBC (0.0-0.012) X10*3/uL Nucleated RBC % (auto) (0.0-0.2) /100WBC D-Dimer High Sensitivty 197 NG/ML Sodium 140 (135-145) mmol/L Potassium 4.0 (3.3-5.1) mmol/L Chloride 104 (96-108) mmol/L Carbon Dioxide 26 (22-29) mmol/L Anion Gap 14 (12-20) BUN 10 (9-16) mg/dL Creatinine 0.78 (0.5-1.4) mg/dL Estim Creat Clear Calc 82.1 Estimated GFR > 60 Random Glucose 87 (60-115) mg/dL Calcium 9.2 (8.4-10.2) mg/dL Magnesium 1.8 (1.6-2.6) mg/dL Total Bilirubin 0.3 (0.0-1.0) mg/dL AST 20 (5-31) U/L ALT 28 (0-31) U/L Alkaline Phosphatase 70 (39-117) U/L Troponin I High Sens < 3.5 (<3.5-17.0) ng/L B-Natriuretic Peptide (<100) pg/mL Total Protein 7.0 (6.5-8.0) g/dL Albumin 4.0 (3.5-5.0) g/dL COVID-19 (TERRY) (Negative) COVID-19 Clin Com Influenza Type A (NAYANA) (Negative) Influenza Type B (NAYANA) (Negative) Influenza A & B Note 09/12/21 Range/Units 17:39 WBC (4.8-10.8) X10*3/uL RBC (4.20-5.50) X10*6/uL Hgb (12.0-16.0) g/dl Hct (37.0-47.0) % MCV (80.0-98.0) fL MCH (27.0-33.0) pg MCHC (31.0-35.0) g/dl RDW (11.0-16.0) % Plt Count (160-400) X10*3/uL MPV (9.4-12.3) fL Immature Gran % (Auto) (0.0-0.4) % Neut % (Auto) (45-73) % Lymph % (Auto) (20-40) % Blount % (Auto) (2-11) % Eos % (Auto) (0-4) % Baso % (Auto) (0-2) % Lymph # (Auto) (1.2-4.9) X10*3/uL Blount # (Auto) (0.1-1.2) X10*3/uL Eos # (Auto) (0.0-0.4) X10*3/uL Baso # (Auto) (0.0-0.2) X10*3/uL Abs Immat Gran (auto) (0.00-0.03) X10*3/uL Absolute Neuts (auto) (2.0-8.3) x10*3/uL Absolute Nucleated RBC (0.0-0.012) X10*3/uL Nucleated RBC % (auto) (0.0-0.2) /100WBC D-Dimer High Sensitivty NG/ML Sodium (135-145) mmol/L Potassium (3.3-5.1) mmol/L Chloride (96-108) mmol/L Carbon Dioxide (22-29) mmol/L Anion Gap (12-20) BUN (9-16) mg/dL Creatinine (0.5-1.4) mg/dL Estim Creat Clear Calc Estimated GFR Random Glucose (60-115) mg/dL Calcium (8.4-10.2) mg/dL Magnesium (1.6-2.6) mg/dL Total Bilirubin (0.0-1.0) mg/dL AST (5-31) U/L ALT (0-31) U/L Alkaline Phosphatase (39-117) U/L Troponin I High Sens (<3.5-17.0) ng/L B-Natriuretic Peptide 25 (<100) pg/mL Total Protein (6.5-8.0) g/dL Albumin (3.5-5.0) g/dL COVID-19 (TERRY) (Negative) COVID-19 Clin Com Influenza Type A (NAYANA) (Negative) Influenza Type B (NAYANA) (Negative) Influenza A & B Note Imaging Data Chest x-ray: Radiologist's impression: FINDINGS: No focal consolidation, pulmonary edema, or pleural effusion. Stable cardiomediastinal silhouette. XR/XR chest 2V IMPRESSION: No acute cardiopulmonary findings. Discharge Plan Discharge Clinical Impression: Bronchitis Patient Disposition: Home, Self-Care Instructions: Acute Bronchitis (ED) Additional Instructions: Take prednisone once daily with food for 5 days, use albuterol inhaler as needed for cough or shortness of breath every 4-6 hours, take Augmentin and finish entire course as prescribed. Please follow-up with your primary care provider in 1-3 days. Return to the emergency department with any new or worsening symptoms or concerns. Prescriptions: New albuterol sulfate 90 mcg/actuation HFA aerosol inhaler 2 puff inhalation Q4-6H PRN (Reason: shortness of breath or wheezing) Qty: 6.7 0RF prednisone 20 mg tablet 40 mg PO DAILY 5 Days Qty: 10 0RF amoxicillin-pot clavulanate 875-125 mg tablet 1 tab PO Q12H 7 Days Qty: 14 0RF No Action amlodipine 5 mg Tablet 5 mg PO DAILY 0RF ziprasidone HCl [Geodon] 20 mg Capsule 20 mg PO BID 0RF pravastatin 80 mg Tablet 80 mg PO BEDTIME 0RF trazodone 100 mg Tablet 100 mg PO BEDTIME 0RF bisacodyl [Dulcolax (bisacodyl)] 5 mg Tablet,Delayed Release (Dr/Ec) 10 mg PO BID 0RF lorazepam 1 mg Tablet 1 mg PO BID PRN (Reason: Anxiety) 0RF escitalopram oxalate [Lexapro] 20 mg Tablet 20 mg PO DAILY 0RF sulfamethoxazole-trimethoprim [Bactrim DS] 800-160 mg tablet 1 tab PO BID 7 Days Qty: 14 0RF phenazopyridine [Pyridium] 200 mg tablet 200 mg PO TID 3 Days Qty: 9 0RF Linzess 72 mcg capsule 72 mcg PO QAM Qty: 30 6RF Rx Instructions: DISCONTINUING THE 145MCG DOSE IT IS TOO STRONG.
[2021-09-12 17:43] LABS: MANUAL DIFF FLAG NO
[2021-09-12 17:46] LABS: Basophils Percent Auto 0.9 % (0-2); Eosinophils Absolute Auto 0.1 X10*3/uL (0.0-0.4); Eosinophils Percent Auto 2.8 % (0-4); Hematocrit 38.2 % (37.0-47.0); Hemoglobin 12.5 g/dl (12.0-16.0); Imm Gran Abs Auto 0.02 X10*3/uL (0.00-0.03); Imm Gran Pct Auto 0.5 % (0.0-0.4); Lymphocytes Absolute Auto 1.4 X10*3/uL (1.2-4.9); Mean Corpuscular HGB Conc 32.7 g/dl (31.0-35.0); Mean Corpuscular Hemoglobin 28.8 pg (27.0-33.0); Mean Platelet Volume 10.9 fL (9.4-12.3); Monocytes Absolute Auto 0.3 X10*3/uL (0.1-1.2); Monocytes Percent Auto 6.4 % (2-11); Neutrophils Absolute Auto 2.5 x10*3/uL (2.0-8.3); Neutrophils Percent Auto 58.4 % (45-73); Platelet Count 237 X10*3/uL (160-400); Red Blood Count 4.34 X10*6/uL (4.20-5.50); Red Cell Distribution Width 13.4 % (11.0-16.0); White Blood Count 4.4 X10*3/uL (4.8-10.8)
[2021-09-12 17:55] LABS: D Dimer High Sensitivity 197 NG/ML
[2021-09-12 18:01] LABS: Alanine Aminotransferase 28 U/L (0-31); Alkaline Phosphatase 70 U/L (39-117); Anion Gap 14 (12-20); Aspartate Amino Transferase 20 U/L (5-31); Bilirubin Total 0.3 mg/dL (0.0-1.0); Blood Urea Nitrogen 10 mg/dL (9-16); Calcium 9.2 mg/dL (8.4-10.2); Carbon Dioxide 26 mmol/L (22-29); Chloride 104 mmol/L (96-108); Creatinine Clr Calc Pharmacy 82.1; Estimated Glomerular Filt Rate > 60; Glucose Random 87 mg/dL (60-115); Magnesium 1.8 mg/dL (1.6-2.6); Sodium 140 mmol/L (135-145)
[2021-09-12 18:07] LABS: Troponin-I High Sensitivity < 3.5 ng/L (<3.5-17.0)
[2021-09-12 18:08] LABS: B Type Natriuretic Peptide 25 pg/mL (<100)
== END 2021-09-12 19:13 | disposition home or self-care (01) ==
PROVIDERS: Nurse Practitioner Family; Emergency Provider Emergency Medicine; PCP Internal Medicine
DX: J40 Bronchitis, not specified as acute or chronic (principal); R06.02 Shortness of breath; R07.89 Other chest pain; F17.210 Nicotine dependence, cigarettes, uncomplicated; Z20.822 Contact with and (suspected) exposure to COVID-19; Z71.6 Tobacco abuse counseling; Z79.899 Other long term (current) drug therapy
CPT/HCPCS: 36415; 71046; 80053; 83735; 83880; 84484; 85025; 85379; 87502; 87635; 93005; 99283; 99284

== ENCOUNTER → 2021-10-24 14:16 | Outpatient (BNVA) | payer OTHER, SELFPAY | PROVIDERS: Visit Provider Physician Assistant | DX: M79.601 Pain in right arm (principal) | CPT/HCPCS: 99212; J1040 ==

== ENCOUNTER 2021-11-02 12:50 | Outpatient (REF) | payer OTHER, SELFPAY ==
[2021-11-02 12:55] LABS: MANUAL DIFF FLAG NO
[2021-11-02 13:26] LABS: Basophils Absolute Auto 0.1 X10*3/uL (0.0-0.2); Basophils Percent Auto 1.3 % (0-2); Eosinophils Absolute Auto 0.1 X10*3/uL (0.0-0.4); Hematocrit 39.3 % (37.0-47.0); Hemoglobin 12.8 g/dl (12.0-16.0); Imm Gran Abs Auto 0.02 X10*3/uL (0.00-0.03); Imm Gran Pct Auto 0.3 % (0.0-0.4); Lymphocytes Absolute Auto 1.5 X10*3/uL (1.2-4.9); Mean Corpuscular HGB Conc 32.6 g/dl (31.0-35.0); Mean Corpuscular Hemoglobin 28.7 pg (27.0-33.0); Mean Corpuscular Volume 88.1 fL (80.0-98.0); Mean Platelet Volume 11.6 fL (9.4-12.3); Monocytes Absolute Auto 0.5 X10*3/uL (0.1-1.2); Monocytes Percent Auto 8.1 % (2-11); Neutrophils Absolute Auto 3.7 x10*3/uL (2.0-8.3); Neutrophils Percent Auto 62.3 % (45-73); Platelet Count 238 X10*3/uL (160-400); Red Blood Count 4.46 X10*6/uL (4.20-5.50); White Blood Count 5.9 X10*3/uL (4.8-10.8)
[2021-11-02 14:02] LABS: Alanine Aminotransferase 21 U/L (0-31); Albumin Level 4.3 g/dL (3.5-5.0); Alkaline Phosphatase 81 U/L (39-117); Anion Gap 14 (12-20); Aspartate Amino Transferase 16 U/L (5-31); Bilirubin Total 0.3 mg/dL (0.0-1.0); Blood Urea Nitrogen 14 mg/dL (9-16); Carbon Dioxide 27 mmol/L (22-29); Chloride 101 mmol/L (96-108); Cholesterol 193 mg/dL; Estimated Glomerular Filt Rate > 60; Glucose Random 120 mg/dL (60-115); HDL Cholesterol 47 mg/dL; LDL Cholesterol Calculated 117 mg/dl; Potassium 4.1 mmol/L (3.3-5.1); Sodium 138 mmol/L (135-145); Total Protein 7.3 g/dL (6.5-8.0); Triglycerides 146 mg/dL
[2021-11-02 14:11] LABS: Thyroid Stimulating Hormone 2.23 uIU/mL (0.32-4.0)
[2021-11-02 14:13] LABS: Erythrocyte Sedimentation Rate 7 MM/HR (0-20)
== END 2021-11-02 12:51 | disposition home or self-care (01) ==
LOC: HO.LAB 12:50
PROVIDERS: PCP Internal Medicine; Visit Provider Internal Medicine
DX: E78.00 Pure hypercholesterolemia, unspecified (principal); I10 Essential (primary) hypertension; M06.9 Rheumatoid arthritis, unspecified; R73.01 Impaired fasting glucose
CPT/HCPCS: 36415; 80053; 80061; 84443; 85025; 85652

== ENCOUNTER → 2021-11-28 13:52 | Outpatient (BNVA) | payer OTHER, SELFPAY | PROVIDERS: PCP Internal Medicine; Visit Provider Nurse Practitioner Family | DX: M75.81 Other shoulder lesions, right shoulder (principal); M19.011 Primary osteoarthritis, right shoulder | CPT/HCPCS: 99202 ==

== ENCOUNTER 2021-12-12 12:00 | Outpatient (RCR) | payer OTHER, SELFPAY ==
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
--- NOTE | 2021-10-15 23:27 | P.PNPS_ITS ---
TMS Daily Progress Note Daily TMS Progress Note Date of Service: 10/13/21 Week #: 1 Treatment #(06-25): 1 PHQ-9 Pre-Treatment (06-22): 26 PHQ-9 Most Recent (06-22): 26 Reviewed: TMS Tech Note Reviewed Verification: I have reviewed the TMS Product Manufacturing Professional Note and agree with the contents. The patient remains a candidate to continue TMS treatment per protocol. Assessment and Plan (1) Major depressive disorder, recurrent severe without psychotic features: Status: Acute (2) Chronic post-traumatic stress disorder (PTSD): Status: Acute Plan initial mapping completed was difficult with high intensity required
--- NOTE | 2021-10-16 23:29 | HO.TMSDAILY2 ---
TMS Daily Progress Note Daily TMS Progress Note Date of Service: 10/16/21 Week #: 1 Treatment #(06-25): 2 PHQ-9 Pre-Treatment (06-22): 26 PHQ-9 Most Recent (06-22): 26 Reviewed: TMS Tech Note Reviewed Verification: I have reviewed the TMS Atm Technician Note and agree with the contents. The patient remains a candidate to continue TMS treatment per protocol.
--- NOTE | 2021-10-17 23:04 | HO.TMSDAILY2 ---
TMS Daily Progress Note Daily TMS Progress Note Date of Service: 10/17/21 Week #: 1 Treatment #(06-25): 3 PHQ-9 Pre-Treatment (06-22): 26 PHQ-9 Most Recent (06-22): 26 Reviewed: TMS Tech Note Reviewed Verification: I have reviewed the TMS Retail Salesperson Note and agree with the contents. The patient remains a candidate to continue TMS treatment per protocol.
--- NOTE | 2021-10-18 10:22 | HO.TMSDAILY2 ---
TMS Daily Progress Note Daily TMS Progress Note Date of Service: 10/18/21 Week #: 1 Treatment #(06-25): 4 PHQ-9 Pre-Treatment (06-22): 26 PHQ-9 Most Recent (06-22): 26 Reviewed: TMS Tech Note Reviewed Verification: I have reviewed the TMS Assurance Manager Insurance Note and agree with the contents. The patient remains a candidate to continue TMS treatment per protocol.
--- NOTE | 2021-10-20 21:46 | P.PNPS_ITS ---
TMS Daily Progress Note Daily TMS Progress Note Date of Service: 10/19/21 Week #: 1 Treatment #(06-25): 5 PHQ-9 Pre-Treatment (06-22): 26 PHQ-9 Most Recent (06-22): 26 Reviewed: TMS Tech Note Reviewed (for 10/19/21 tx ) Verification: I have reviewed the TMS Parachute Cushion Installer Note and agree with the contents. The patient remains a candidate to continue TMS treatment per protocol. Assessment and Plan (1) Major depressive disorder, recurrent severe without psychotic features: Status: Acute (2) Chronic post-traumatic stress disorder (PTSD): Status: Acute Plan Continue left-sided treatment patient is tolerating will had right-sided treatment per literature for anxiety and additional depression support
--- NOTE | 2021-10-20 21:48 | P.PNPS_ITS ---
TMS Daily Progress Note Daily TMS Progress Note Date of Service: 10/24/21 Week #: 2 Treatment #(06-25): 6 PHQ-9 Pre-Treatment (06-22): 26 PHQ-9 Most Recent (06-22): 26 Reviewed: TMS Tech Note Reviewed Verification: I have reviewed the TMS Disease And Insect Control Boss Note and agree with the contents. The patient remains a candidate to continue TMS treatment per protocol. Assessment and Plan (1) Major depressive disorder, recurrent severe without psychotic features: Status: Acute (2) Chronic post-traumatic stress disorder (PTSD): Status: Acute Plan Patient tolerating treatment with minimal discomfort continue treatment plan
--- NOTE | 2021-10-24 18:07 | HO.TMSDAILY2 ---
TMS Daily Progress Note Daily TMS Progress Note Date of Service: 10/24/21 Week #: 2 Treatment #(06-25): 7 PHQ-9 Pre-Treatment (06-22): 26 PHQ-9 Most Recent (06-22): 26 Reviewed: TMS Tech Note Reviewed Verification: I have reviewed the TMS Quality Control Microbiology Supervisor Note and agree with the contents. The patient remains a candidate to continue TMS treatment per protocol. Assessment and Plan (1) Major depressive disorder, recurrent severe without psychotic features: Status: Acute (2) Chronic post-traumatic stress disorder (PTSD): Status: Acute Plan Patient has been getting transitory headaches discuss with tech remapping
--- NOTE | 2021-10-25 11:09 | HO.TMSDAILY2 ---
TMS Daily Progress Note Daily TMS Progress Note Date of Service: 10/25/21 Week #: 2 Treatment #(06-25): 8 PHQ-9 Pre-Treatment (06-22): 26 PHQ-9 Most Recent (06-22): 26 Reviewed: TMS Tech Note Reviewed Verification: I have reviewed the TMS Residential Carpet Installer Note and agree with the contents. The patient remains a candidate to continue TMS treatment per protocol. c/o headache
--- NOTE | 2021-10-26 16:21 | P.PNPS_ITS ---
TMS Daily Progress Note Daily TMS Progress Note Date of Service: 10/26/21 Week #: 2 Treatment #(06-25): 8 PHQ-9 Pre-Treatment (06-22): 26 PHQ-9 Most Recent (06-22): 26 Reviewed: TMS Tech Note Reviewed Verification: I have reviewed the TMS Primer And Powder Canning Leader Note and agree with the contents. The patient remains a candidate to continue TMS treatment per protocol. Assessment and Plan (1) Major depressive disorder, recurrent severe without psychotic features: Status: Acute Plan remap tomorrow
--- NOTE | 2021-10-27 22:57 | HO.TMSDAILY2 ---
TMS Daily Progress Note Daily TMS Progress Note Date of Service: 10/27/21 Week #: 2 Treatment #(06-25): 9 PHQ-9 Pre-Treatment (06-22): 26 PHQ-9 Most Recent (06-22): 26 Reviewed: TMS Mapping/Re-mapping completed Verification: I have reviewed the TMS Military Administrative Technician Note and agree with the contents. The patient remains a candidate to continue TMS treatment per protocol. remapping completed lower MT
--- NOTE | 2021-10-30 16:20 | P.PNPS_ITS ---
TMS Daily Progress Note Daily TMS Progress Note Date of Service: 10/30/21 Treatment #(06-25): 9 PHQ-9 Pre-Treatment (06-22): 26 PHQ-9 Most Recent (06-22): 26 Verification: I have reviewed the TMS Palliative Care Nurse Practitioner Note and agree with the contents. The patient remains a candidate to continue TMS treatment per protocol.
--- NOTE | 2021-11-13 22:56 | HO.TMSDAILY2 ---
TMS Daily Progress Note Daily TMS Progress Note Date of Service: 11/13/21 Week #: 5 Treatment #(06-25): 21 PHQ-9 Pre-Treatment (06-22): 26 PHQ-9 Most Recent (06-22): 26 Reviewed: TMS Tech Note Reviewed Verification: I have reviewed the TMS Technology Risk Intern Note and agree with the contents. The patient remains a candidate to continue TMS treatment per protocol. Assessment and Plan (1) Major depressive disorder, recurrent severe without psychotic features: Status: Acute (2) Chronic post-traumatic stress disorder (PTSD): Status: Acute Plan cont tx plan
--- NOTE | 2021-11-14 22:06 | P.PNPS_ITS ---
TMS Daily Progress Note Daily TMS Progress Note Date of Service: 11/15/21 Week #: 5 Treatment #(06-25): 22 PHQ-9 Pre-Treatment (06-22): 26 PHQ-9 Most Recent (06-22): 26 Reviewed: TMS Tech Note Reviewed Verification: I have reviewed the TMS Copying Machine Mechanic Note and agree with the contents. The patient remains a candidate to continue TMS treatment per protocol.
--- NOTE | 2021-11-16 | P.PNPS_ITS ---
TMS Daily Progress Note Daily TMS Progress Note Date of Service: 11/16/21 Week #: 5 Treatment #(06-25): 23 PHQ-9 Pre-Treatment (06-22): 26 PHQ-9 Most Recent (06-22): 26 Reviewed: TMS Tech Note Reviewed Verification: I have reviewed the TMS Free Lance Artist Note and agree with the contents. The patient remains a candidate to continue TMS treatment per protocol.
--- NOTE | 2021-11-17 19:06 | HO.TMSDAILY2 ---
TMS Daily Progress Note Daily TMS Progress Note Date of Service: 11/17/21 Week #: 5 Treatment #(06-25): 25 PHQ-9 Pre-Treatment (06-22): 26 PHQ-9 Most Recent (06-22): 26 Reviewed: TMS Tech Note Reviewed Verification: I have reviewed the TMS Communication Consultant Note and agree with the contents. The patient remains a candidate to continue TMS treatment per protocol.
--- NOTE | 2021-11-20 23:23 | HO.TMSDAILY2 ---
TMS Daily Progress Note Daily TMS Progress Note Date of Service: 11/20/21 Week #: 6 Treatment #(06-25): 26 PHQ-9 Pre-Treatment (06-22): 26 PHQ-9 Most Recent (06-22): 26 Reviewed: TMS Tech Note Reviewed Verification: I have reviewed the TMS Career Development Coordinator Note and agree with the contents. The patient remains a candidate to continue TMS treatment per protocol.
--- NOTE | 2021-11-22 13:58 | P.PNPS_ITS ---
TMS Daily Progress Note Daily TMS Progress Note Date of Service: 11/23/21 Week #: 6 Treatment #(06-25): 28 PHQ-9 Pre-Treatment (06-22): 26 PHQ-9 Most Recent (06-22): 26 Reviewed: TMS Tech Note Reviewed Verification: I have reviewed the TMS Manager Disaster Recovery Note and agree with the contents. The patient remains a candidate to continue TMS treatment per protocol.
--- NOTE | 2021-11-23 23:49 | P.PNPS_ITS ---
TMS Daily Progress Note Daily TMS Progress Note Date of Service: 11/23/21 Week #: 6 Treatment #(06-25): 29 PHQ-9 Pre-Treatment (06-22): 26 PHQ-9 Most Recent (06-22): 26 Reviewed: TMS Tech Note Reviewed Verification: I have reviewed the TMS Neurology Physician Note and agree with the contents. The patient remains a candidate to continue TMS treatment per protocol.
--- NOTE | 2021-11-30 13:32 | P.PNPS_ITS ---
TMS Daily Progress Note Daily TMS Progress Note Date of Service: 11/24/21 Week #: 6 Treatment #(06-25): 30 PHQ-9 Pre-Treatment (06-22): 26 PHQ-9 Most Recent (06-22): 26 Reviewed: TMS Tech Note Reviewed Verification: I have reviewed the TMS Plastic Shaper Note and agree with the contents. The patient remains a candidate to continue TMS treatment per protocol.
--- NOTE | 2021-11-30 20:19 | P.PNPS_ITS ---
TMS Daily Progress Note Daily TMS Progress Note Date of Service: 12/03/21 Week #: 7 Treatment #(06-25): 32 PHQ-9 Pre-Treatment (06-22): 26 PHQ-9 Most Recent (06-22): 26 Reviewed: TMS Tech Note Reviewed Verification: I have reviewed the TMS Pharmaceutical Service Representative Note and agree with the contents. The patient remains a candidate to continue TMS treatment per protocol.
--- NOTE | 2021-12-03 20:18 | HO.TMSDAILY2 ---
TMS Daily Progress Note Daily TMS Progress Note Date of Service: 12/03/21 Week #: 7 Treatment #(06-25): 31 PHQ-9 Pre-Treatment (06-22): 26 PHQ-9 Most Recent (06-22): 26 Reviewed: TMS Tech Note Reviewed Verification: I have reviewed the TMS Electric Fork Operator Note and agree with the contents. The patient remains a candidate to continue TMS treatment per protocol.
--- NOTE | 2021-12-04 22:11 | P.PNPS_ITS ---
TMS Daily Progress Note Daily TMS Progress Note Date of Service: 12/04/21 Week #: 7 Treatment #(06-25): 33 PHQ-9 Pre-Treatment (06-22): 26 PHQ-9 Most Recent (06-22): 26 Reviewed: TMS Tech Note Reviewed Verification: I have reviewed the TMS Secondary Special Education Teacher Note and agree with the contents. The patient remains a candidate to continue TMS treatment per protocol.
--- NOTE | 2021-12-06 08:19 | HO.TMSDAILY2 ---
TMS Daily Progress Note Daily TMS Progress Note Date of Service: 12/06/21 Week #: 8 Treatment #(06-25): 35 PHQ-9 Pre-Treatment (06-22): 26 PHQ-9 Most Recent (06-22): 26 Reviewed: TMS Tech Note Reviewed Verification: I have reviewed the TMS Pest Control Worker Note and agree with the contents. The patient remains a candidate to continue TMS treatment per protocol. Assessment and Plan (1) Major depressive disorder, recurrent severe without psychotic features: Status: Acute (2) Chronic post-traumatic stress disorder (PTSD): Status: Acute Plan The patient a shows clear improvement
--- NOTE | 2021-12-12 23:08 | HO.TMSDAILY2 ---
TMS Daily Progress Note Daily TMS Progress Note Date of Service: 12/12/21 Week #: 8 Treatment #(06-25): 36 PHQ-9 Pre-Treatment (06-22): 26 PHQ-9 Most Recent (06-22): 26 Reviewed: TMS Tech Note Reviewed Verification: I have reviewed the TMS Crisis Intervention Counselor Note and agree with the contents. The patient remains a candidate to continue TMS treatment per protocol. Assessment and Plan (1) Major depressive disorder, recurrent severe without psychotic features: Status: Acute (2) Chronic post-traumatic stress disorder (PTSD): Status: Acute Plan The patient is seen for 20 minutes prior to her last treatment. Patient has not had significant side effects and has shown marked improvement in mood energy ability to enjoy things concentrate and function. She continues to go to the day treatment program through [facility] which has been quite helpful. The patient is feeling better enough that she is willing to consider a part-time job and is aware that her isolation is unhealthy for her. She will continue in treatment with her psychiatrist Dionisio jha [employer]LL [employer] OPERATOR [employer] The patient is aware if she does suffer significant relapse symptoms we can reconsider a TMS protocol. This has been the best patient has felt in a number of years
== END 2022-11-05 17:22 | disposition home or self-care (01) ==
LOC: HO.PTMS 12:00
PROVIDERS: Visit Provider Psychiatry & Neurology Psychiatry
DX: F33.2 Major depressive disorder, recurrent severe without psychotic features (principal); F43.12 Post-traumatic stress disorder, chronic
CPT/HCPCS: 90867; 90868

== ENCOUNTER 2022-05-04 15:17 | Emergency (ER) | payer OTHER, SELFPAY ==
--- NOTE | ~2022-05-04 | XR_ITS ---
EXAMINATION: XR HAND, RIGHT CLINICAL INFORMATION: Laceration from glass. COMPARISON: None TECHNIQUE: PA, lateral, and oblique views of the right hand. FINDINGS: There is a bandage over the fifth metacarpal phalangeal joint region. No radiopaque foreign body. No air in the soft tissue. No fracture or dislocation. Mild degenerative change of the first metacarpal carpal joint of joint narrowing marginal bone spur. Mild joint narrowing marginal bone spurs of the DIP joints of the second through fifth digits. XR/XR hand RT 2V IMPRESSION: 1. No acute abnormality. 2. No radiopaque foreign body. 3. Mild degenerative change of the hand.
[2022-05-04 16:27] VITALS: BP 142/75; PULSE 82; RESP 16; TEMP 36.6; O2SAT 96; BMI 35.2
--- NOTE | 2022-05-04 17:56 | ED_ITS ---
HPI - Wound/Laceration General Chief Complaint: Wound/Laceration Stated Complaint: R Hand Lac Injury 05/04/22 Time Seen by Provider: 05/04/22 17:35 Source: patient Mode of arrival: ambulatory Limitations: no limitations History of Present Illness HPI narrative: 62-year-old female presenting to the ER with complaints of a laceration to the right lateral aspect of her hand that occurred prior to arrival while she was washing a glass. She reports that she is unsure she is up-to-date on tetanus although is refusing tetanus vaccine at this time. She denies any bony tenderness any thoughts foreign bodies or any other complaints concerns or injuries at this time. Onset (ago): hour(s) ( Few hours prior to arrival) Extremity Location: right: hand Place: home Context: accidental Associated symptoms: pain Treatments prior to arrival: bandage Related Data Home Medications Medication Instructions Recorded Confirmed amlodipine 5 mg tablet 5 mg PO DAILY 02/26/20 11/28/21 losartan 100 1 tab PO DAILY 10/24/21 11/28/21 mg-hydrochlorothiazide 25 mg tablet vilazodone 40 mg tablet (Viibryd) 40 mg PO QAM 10/24/21 11/28/21 acetaminophen 500 mg capsule 1,000 mg PO Q6H PRN 11/28/21 11/28/21 ibuprofen 200 mg capsule 400 mg PO Q8H 11/28/21 11/28/21 lorazepam 0.5 mg tablet 0.5 mg PO TID PRN 11/28/21 11/28/21 naproxen 250 mg tablet 250 mg PO BID PRN 11/28/21 11/28/21 trazodone 100 mg tablet 100 mg PO BEDTIME 11/28/21 11/28/21 Previous Rx's Medication Instructions Recorded cephalexin 500 mg capsule 500 mg PO BID 7 days #14 caps 05/04/22 Allergies Allergy/AdvReac Type Severity Reaction Status Date / Time No Known Allergies Allergy Verified 11/28/21 14:09 [No Known Allergies*] Review of Systems Review of Systems: Constitutional : No Fever, No Chills, Cardiovascular : No Chest Pain, No SOB Respiratory : No Dyspnea Gastrointestinal : No abdominal pain Musculoskeletal : No Joint Swelling Skin : positive skin laceration, No Foreign bodies, No rash, No surrounding erythema Neuro : No Weakness, No Numbness/tingling Psych : No SI/HI/thoughts of self injury Yes all other systems are reviewed and are negative [facility] Past Medical History Attestation statement: The following information was validated with the patient. Source: old records reviewed and nursing notes reviewed Medical History Anxiety Arthritis Chronic post-traumatic stress disorder (PTSD) Depression Elevated cholesterol HTN (hypertension) Major depressive disorder, recurrent severe without psychotic features Urinary incontinence Surgical History H/O lumbar discectomy H/O tubal ligation H/O: hysterectomy History of bladder suspension procedure History of repair of rectocele History of sleeve gastrectomy History of total bilateral knee replacement (TKR) Hx of abdominoplasty Hx of arthroscopic knee surgery Hx of blepharoplasty Hx of colonoscopy S/P Botox injection S/P trigger finger release Family History Family History Father Diabetes Heart disease Mother Diabetes Heart disease Family/Other Diabetes Heart disease Social History Social History Household Members: None Alcohol intake: current Alcohol intake frequency: does not drink Cigarettes Per Day: 2 Years Smoked: 40 Advance Directives: No Advance Directives Information Provided: No Current occupational status: unemployed Current occupation: right handed Physical Exam Vital Signs: Vital Signs: Last Vital Signs Temp 97.8 F 05/04/22 16:27 Pulse 82 05/04/22 16:27 Resp 16 05/04/22 16:27 BP 142/75 H 05/04/22 16:27 Pulse Ox 96 05/04/22 16:27 O2 Del Method 05/04/22 16:27 BMI result Body Mass Index 35.2 vital signs have been reviewed as normal and appeared to be correct. Blood pressure 142/75 Heart rate normal. Respiration rate normal. Temperature normal. Oxygen saturation normal. Appearance: Alert. Oriented X3. No acute distress. Head: Normal external exam. Normocephalic. Atraumatic. Eyes: PERRLA. EOMI. Conjunctiva and sclera normal. Eyelids normal. ENT: Pharynx normal. Uvula midline. Moist mucous membranes. Neck: Normal inspection. Neck supple. FROM. CVS: Normal heart rate and rhythm. Respiratory: No respiratory distress. Painless inspiration. Skin: Skin warm and dry. Normal skin color. Normal skin turgor. No rashes/lesions/lacerations noted. Extremities: to left hand lateral aspect/ulnar aspect at the 5th metacarpal patient has a 2 cm intermediate laceration. No active bleeding or bony tenderness or foreign bodies noted. No obvious ligamentous or tendon injury noted. She has full range of motion all finger/ hand and wrist joint. Otherwise all other extremities exhibit normal range of motion nontender. Neuro: Oriented X 3. No motor deficit. No sensory deficit. Reflexes normal. Normal steady gait. No focal neuro deficits noted. Vascular: + radial pulses/+ 2 distal pedal pulses/+2 dorsalis pedis b/l. Normal cap refill. No cyanosis noted to upper extremity nails and lower extremity toes nails. Course Course Course Narrative: Patient now status post laceration repair With 5 simple interrupted stitches. Patient refusing tetanus vaccine. X-ray obtained and negative for any acute processes. Tetanus updated. Will DC home with symptomatic treatment antibiotics along with instructions to return in 10-14 days for suture removal and to follow up prior if signs of infection. Patient understands agrees the plan. Procedures Laceration Laceration 1: Site: hand Side (If applicable): right Size (cm): 2 Description: linear Depth: simple, single layer Local Anesthetic: lidocaine 1% Amount of anesthesia used (mL): 4 Pre-repair: wound explored, irrigated extensively and deep structures intact Skin layer closed with: nylon Size (cm): 4-0 Number of sutures: 5 Technique: simple, interrupted Discharge Plan Discharge Clinical Impression: Laceration of hand, right Patient Disposition: Home, Self-Care Instructions: Laceration (ED) Prescriptions: New cephalexin 500 mg capsule 500 mg PO BID 7 Days Qty: 14 0RF No Action amlodipine 5 mg Tablet 5 mg PO DAILY trazodone 100 mg Tablet 100 mg PO BEDTIME losartan-hydrochlorothiazide 100-25 mg tablet 1 tab PO DAILY Viibryd 40 mg tablet 40 mg PO QAM lorazepam 0.5 mg tablet 0.5 mg PO TID PRN naproxen 250 mg tablet 250 mg PO BID PRN acetaminophen 500 mg capsule 1,000 mg PO Q6H PRN ibuprofen 200 mg capsule 400 mg PO Q8H Referrals: Umm Juarez PA [Emergency Midlevel Provider] - 10 days (for suture removal)
[2022-05-04] MEDS: Lidocaine HCl 1 % MPF 2 ML VIAL INFILTRATI ×2 (18:00)
--- NOTE | 2022-05-04 18:13 | PC.NURSE ---
Called pharmacy to bring Bacitracin to ED. Unavailable in ED/EMC pyxis machines. Provider aware.
== END 2022-05-04 18:40 | disposition home or self-care (01) ==
PROVIDERS: Emergency Provider Emergency Medicine; PCP Internal Medicine
DX: S61.411A Laceration without foreign body of right hand, initial encounter (principal); M79.641 Pain in right hand; W25.XXXA Contact with sharp glass, initial encounter; Y93.G1 Activity, food preparation and clean up; Y92.000 Kitchen of unspecified non-institutional (private) residence as the place of occurrence of the external cause; Y99.9 Unspecified external cause status
CPT/HCPCS: 12041; 73120; 99282; 99283; 99284

== ENCOUNTER 2022-05-25 15:49 | Outpatient (REF) | payer OTHER, SELFPAY ==
[2022-05-25 17:31] LABS: Estimated Average Glucose 114 mg/dL; Hemoglobin A1c % 5.6 %
[2022-05-25 17:45] LABS: Anion Gap 13 (12-20)
[2022-05-25 17:47] LABS: Alanine Aminotransferase 20 U/L (0-31); Albumin Level 4.8 g/dL (3.5-5.0); Alkaline Phosphatase 79 U/L (39-117); Aspartate Amino Transferase 17 U/L (5-31); Bilirubin Total 0.4 mg/dL (0.0-1.0); Blood Urea Nitrogen 13 mg/dL (9-16); Calcium 9.5 mg/dL (8.4-10.2); Carbon Dioxide 29 mmol/L (22-29); Chloride 103 mmol/L (96-108); Estimated Glomerular Filt Rate > 60; Glucose Random 96 mg/dL (60-115); Potassium 4.3 mmol/L (3.3-5.1); Sodium 141 mmol/L (135-145); Total Protein 7.5 g/dL (6.5-8.0)
== END 2022-05-25 15:50 | disposition home or self-care (01) ==
LOC: HO.LAB 15:49
PROVIDERS: PCP Internal Medicine; Visit Provider Internal Medicine
DX: E78.00 Pure hypercholesterolemia, unspecified (principal); I10 Essential (primary) hypertension; R51.9 Headache, unspecified; R73.01 Impaired fasting glucose
CPT/HCPCS: 36415; 80053; 83036

== ENCOUNTER 2022-09-26 15:36 | Outpatient (REF) | payer OTHER, SELFPAY ==
[2022-09-26 15:50] LABS: MANUAL DIFF FLAG NO
[2022-09-26 16:51] LABS: Basophils Absolute Auto 0.1 X10*3/uL (0.0-0.2); Basophils Percent Auto 1.1 % (0-2); Eosinophils Absolute Auto 0.1 X10*3/uL (0.0-0.4); Eosinophils Percent Auto 1.1 % (0-4); Hematocrit 37.9 % (37.0-47.0); Hemoglobin 12.2 g/dl (12.0-16.0); Imm Gran Abs Auto 0.02 X10*3/uL (0.00-0.03); Imm Gran Pct Auto 0.4 % (0.0-0.4); Lymphocytes Absolute Auto 1.6 X10*3/uL (1.2-4.9); Lymphocytes Percent Auto 28.3 % (20-40); Mean Corpuscular HGB Conc 32.2 g/dl (31.0-35.0); Mean Corpuscular Hemoglobin 28.3 pg (27.0-33.0); Mean Corpuscular Volume 87.9 fL (80.0-98.0); Monocytes Absolute Auto 0.4 X10*3/uL (0.1-1.2); Monocytes Percent Auto 6.7 % (2-11); Neutrophils Absolute Auto 3.5 x10*3/uL (2.0-8.3); Neutrophils Percent Auto 62.4 % (45-73); Platelet Count 264 X10*3/uL (160-400); Red Blood Count 4.31 X10*6/uL (4.20-5.50); Red Cell Distribution Width 14.8 % (11.0-16.0); White Blood Count 5.7 X10*3/uL (4.8-10.8)
[2022-09-26 17:25] LABS: Alanine Aminotransferase 26 U/L (0-31); Albumin Level 4.2 g/dL (3.5-5.0); Alkaline Phosphatase 73 U/L (39-117); Anion Gap 16 (12-20); Aspartate Amino Transferase 20 U/L (5-31); Bilirubin Total 0.2 mg/dL (0.0-1.0); Blood Urea Nitrogen 10 mg/dL (9-16); Calcium 9.4 mg/dL (8.4-10.2); Carbon Dioxide 25 mmol/L (22-29); Chloride 104 mmol/L (96-108); Cholesterol 180 mg/dL; Estimated Glomerular Filt Rate 55; Glucose Random 144 mg/dL (60-115); HDL Cholesterol 36 mg/dL; LDL Cholesterol Calculated 91 mg/dl; Potassium 4.4 mmol/L (3.3-5.1); Sodium 141 mmol/L (135-145); Total Protein 7.5 g/dL (6.5-8.0); Triglycerides 266 mg/dL
== END 2022-09-26 15:37 | disposition home or self-care (01) ==
LOC: HO.LAB 15:36
PROVIDERS: PCP Internal Medicine; Visit Provider Internal Medicine
DX: Z00.00 Encounter for general adult medical examination without abnormal findings (principal); D64.9 Anemia, unspecified; E78.00 Pure hypercholesterolemia, unspecified; I10 Essential (primary) hypertension
CPT/HCPCS: 36415; 80053; 80061; 84443; 85025

== ENCOUNTER → 2022-11-19 13:52 | Outpatient (BNVA) | payer OTHER, SELFPAY | PROVIDERS: PCP Internal Medicine; Visit Provider Nurse Practitioner Family | DX: R32 Unspecified urinary incontinence (principal); R35.0 Frequency of micturition; R39.15 Urgency of urination | CPT/HCPCS: 51798; 99202 ==

== ENCOUNTER 2022-11-21 14:38 | Outpatient (REF) | payer OTHER, SELFPAY ==
[2022-11-21 16:08] LABS: Alanine Aminotransferase 23 U/L (0-31); Albumin Level 4.3 g/dL (3.5-5.0); Alkaline Phosphatase 76 U/L (39-117); Aspartate Amino Transferase 17 U/L (5-31); Bilirubin Direct 0.1 mg/dL (0.0-0.5); Bilirubin Total 0.3 mg/dL (0.0-1.0); Total Protein 7.7 g/dL (6.5-8.0)
== END 2022-11-21 14:39 | disposition home or self-care (01) ==
LOC: HO.LAB 14:38
PROVIDERS: PCP Internal Medicine; Visit Provider Clinical Nurse Specialist Psychiatric/Mental Health, Adult
DX: Z79.899 Other long term (current) drug therapy (principal)
CPT/HCPCS: 36415; 80076

== ENCOUNTER 2022-12-06 11:22 | Outpatient (REF) | payer OTHER, SELFPAY ==
--- NOTE | ~2022-12-06 | US_ITS ---
EXAMINATION: US RETROPERITONEAL COMPLETE (RENAL) CLINICAL INFORMATION: Unspecified urinary incontinence. COMPARISON: None available. TECHNIQUE: Real-time imaging of the kidneys and bladder. FINDINGS: RIGHT KIDNEY: 12.8 x 5.1 x 4.9 cm (SAG x AP x TRV). The kidney is normal in size, contour, and echogenicity. Renal cortical thickness is normal. No calculi or focal parenchymal lesions. No hydronephrosis. Probable small cortical defect at the junction of the upper and mid kidney. LEFT KIDNEY: 11.8 x 5.3 x 5.4 cm (SAG x AP x TRV). The kidney is normal in size, contour, and echogenicity. Renal cortical thickness is normal. No calculi or focal parenchymal lesions. No hydronephrosis. The left kidney appears lobulated. BLADDER: Well distended and normal. Bilateral ureteral jets are demonstrated. Prevoid bladder volume is 260 mL. Postvoid bladder volume is 16 mL. US/US retroperitoneal comp IMPRESSION: 1. Probable small cortical defect at the junction of the upper and mid right kidney. 2. Lobulated left kidney. 3. Small post void residual.
== END 2022-12-06 11:23 | disposition home or self-care (01) ==
LOC: HO.US 11:22
PROVIDERS: PCP Internal Medicine; Visit Provider Nurse Practitioner Family
DX: R32 Unspecified urinary incontinence (principal)
CPT/HCPCS: 76770

== ENCOUNTER 2023-01-02 13:35 | Outpatient (AMB) | payer OTHER, SELFPAY ==
--- NOTE | 2023-01-02 13:39 | MHC.OFFVIS ---
Intake Intake Visit Reasons: 6w/US(set) Intake Note: Patient is present today for follow up OAB with incontinence/ultrasound (imaging 12/06/22) Urology Medications: oxybutynin Blood Thinner: none PVR: 0ml's Slater Apprentice Required: No Accompanied by: Self / Same As Patient Allergies No Known Allergies [No Known Allergies*] Allergy (Verified 01/02/23 14:26) Medication List - Last Reconciled 01/02/23 by MINA Baum acetaminophen 1,000 mg PO Q6H PRN amlodipine 5 mg PO DAILY amlodipine 10 mg PO DAILY aripiprazole 5 mg PO DAILY ibuprofen 400 mg PO Q8H lorazepam 0.5 mg PO TID PRN losartan-hydrochlorothiazide 100-25 mg 1 tab PO DAILY naproxen 250 mg PO BID PRN oxybutynin chloride ER 10 mg PO DAILY 30 days pravastatin 80 mg PO DAILY trazodone 100 mg PO BEDTIME vibegron (Gemtesa) 75 mg PO DAILY 30 days vilazodone (Viibryd) 40 mg PO QAM HPI HPI Comments History of Present Illness Details Mateo is a pleasant 62-year-old female patient of Dr. Block. She has a past medical history of anxiety, arthritis, chronic PTSD, depression, elevated cholesterol, hypertension, and major depressive disorder without psychotic features. She presents to the office today for follow-up. Of note, patient was seen approximately 6 weeks ago as a new patient for urinary incontinence at which time a retroperitoneal ultrasound was ordered for further assessment evaluation in the patient was started on oxybutynin. In discussion with the patient today she reports no improvement in ongoing urinary incontinence with oxybutynin. She has seen Dr. Flores many years ago and under went bladder Botox for urinary incontinence which she did not find helpful for her as well as trying multiple oral therapies (tolterodine, VESIcare, and Myrbetriq). She reports feeling urinary incontinence continues to significantly worsen with time. When asked she reports unsensed and sensed urinary incontinence. She reports utilizing anywhere between 4-6 pads per day. She also reports urinary frequency and urgency. She otherwise denies hematuria foul-smelling urine, dysuria, changes to urinary stream, flank pain, fever, and or chills. In office urinalysis results reviewed with the patient today. PVR 0 mL. Recent retroperitoneal ultrasound results reviewed with the patient today. Bilateral kidneys with no calculi, lesions, and or hydronephrosis noted. The bladder is well distended and normal. Pre void bladder volume is approximately 260 mL postvoid bladder mm proximally 15 mL. Discussed trial of Gemtesa and near future in office cystoscopy for further assessment evaluation. Discussed possible assessment with urodynamics and or possible Interstim. [facility] Medical History Anxiety Arthritis Chronic post-traumatic stress disorder (PTSD) Depression Elevated cholesterol HTN (hypertension) Major depressive disorder, recurrent severe without psychotic features Urinary incontinence Surgical History H/O lumbar discectomy H/O tubal ligation H/O: hysterectomy History of bladder suspension procedure History of repair of rectocele History of sleeve gastrectomy History of total bilateral knee replacement (TKR) Hx of abdominoplasty Hx of arthroscopic knee surgery Hx of blepharoplasty Hx of colonoscopy S/P Botox injection S/P trigger finger release Family History Father Diabetes Heart disease Mother Diabetes Heart disease Family/Other Diabetes Heart disease Social History Household Members: None Alcohol intake: current Alcohol intake frequency: does not drink Cigarettes Per Day: 2 Years Smoked: 40 Current occupational status: unemployed Current occupation: right handed Review of Systems Const Reports as per HPI Eyes Reports no additional complaints ENT Reports no additional complaints Card Reports as per HPI GI Reports as per HPI Reports as per HPI Musc Reports no additional complaints Neuro Reports as per HPI Psych Reports as per HPI Endo Reports no additional complaints Physical Exam Const General: cooperative, healthy appearing, comfortable, no acute distress, well developed, alert and awake Orientation/consciousness: patient oriented x3 Limitations: no limitations HEENT Head: Yes normal to inspection, Yes normocephalic and Yes atraumatic Ears: hearing grossly normal bilaterally Eyes General: appearance normal, both eyes and all related structures Neck Neck: Yes normal visual inspection and Yes trachea midline Chest Chest palpation & inspection: normal inspection of the chest Resp Effort & Inspection: normal respiratory effort and able to speak in complete sentences Cardio Rate: regular rate GI Inspection: Yes normal to inspection General: Yes no CVA tenderness Back/Spine/Pelvis Back: no CVA tenderness Skin General skin exam: no rashes or lesions noted Neuro General: patient oriented x3 Extrem General: Yes normal to inspection Psych Appearance: grossly normal and well kempt Mental Status: mental status grossly normal Speech and movement: Normal speech and movement present and Clear speech present Affect: normal affect Attitude: cooperative Thought process: Normal thought process present Thought content: Normal thought content present Insight: Fair insight present (Psych) Judgement: Fair judgement present (Psych) Office Procedures Post Void Residual Post Residual Void Post Void Residual (PVR): 0 [id number]-[id number] Void Residual by ultrasound Results AMB Urinalysis, Automated UA Leukoctes 0 Destiny/uL Last Edit by [employer] on 01/02/23 14:14 UA Nitrite Last Edit by [employer] on 01/02/23 14:14 UA Urobilinogen 0.2 mg/dL Last Edit by [employer] on 01/02/23 14:14 UA Protein 0 mg/dL Last Edit by [employer] on 01/02/23 14:14 UA pH 7.0 Last Edit by [employer] on 01/02/23 14:14 UA Blood 0 Mio/uL Last Edit by [employer] on 01/02/23 14:14 UA Specific [place] 1.010 Last Edit by [employer] on 01/02/23 14:14 UA Ketone Negative Last Edit by [employer] on 01/02/23 14:14 UA Bilirubin 0 mg/dL Last Edit by [employer] on 01/02/23 14:14 UA Glucose 0 mg/dL Last Edit by [employer] on 01/02/23 14:14 Results Reviewed Results Reviewed: Laboratory Last Values Urine pH (Auto) 7.0 01/02/23 14:12 Specific [place] (Auto) 1.010 01/02/23 14:12 Urine Protein (Auto) 0 mg/dL 01/02/23 14:12 Glucose (UA)(Auto) 0 mg/dL 01/02/23 14:12 Urine Ketones (Auto) Negative 01/02/23 14:12 Urine Blood (Auto) 0 Mio/uL 01/02/23 14:12 Urine Bilirubin (Auto) 0 mg/dL 01/02/23 14:12 Urine Urobilinogen (Auto) 0.2 mg/dL 01/02/23 14:12 Leukocyte Esterase (Auto) 0 Destiny/uL 01/02/23 14:12 Ordering Physician: Carla Padilla Date of Service: 12/06/22 Procedure(s): US retroperitoneal comp Accession Number(s): [id number] cc: Carla Padilla~ EXAMINATION: US RETROPERITONEAL COMPLETE (RENAL) CLINICAL INFORMATION: Unspecified urinary incontinence. COMPARISON: None available. TECHNIQUE: Real-time imaging of the kidneys and bladder. FINDINGS: RIGHT KIDNEY: 12.8 x 5.1 x 4.9 cm (SAG x AP x TRV). The kidney is normal in size, contour, and echogenicity. Renal cortical thickness is normal. No calculi or focal parenchymal lesions. No hydronephrosis. Probable small cortical defect at the junction of the upper and mid kidney. LEFT KIDNEY: 11.8 x 5.3 x 5.4 cm (SAG x AP x TRV). The kidney is normal in size, contour, and echogenicity. Renal cortical thickness is normal. No calculi or focal parenchymal lesions. No hydronephrosis. The left kidney appears lobulated. BLADDER: Well distended and normal. Bilateral ureteral jets are demonstrated. Prevoid bladder volume is 260 mL. Postvoid bladder volume is 16 mL. US/US retroperitoneal comp IMPRESSION: 1.? Probable small cortical defect at the junction of the upper and mid right kidney. 2.? Lobulated left kidney. 3.? Small post void residual. Assessment & Plan Assessment & Plan (1) Urinary urgency: Code(s): R39.15 - Urgency of urination (2) Urinary frequency: Code(s): R35.0 - Frequency of micturition (3) Incontinence: Code(s): R32 - Unspecified urinary incontinence Plan In office urinalysis results reviewed with the patient today; as noted above. PVR 0 mL. Stop oxybutynin as patient reports no improvement in urinary symptoms. Patient with a longstanding history of failed oral OAB medications as well as Botox for ongoing urinary issues Start Gemtesa as discussed and prescribed. Discussed recent retroperitoneal ultrasound results with the patient today; as noted above. Discussed near future in office cystoscopy for further assessment evaluation. Discussed possible urodynamics and or InterStim placement at length All questions were answered Educational pamphlet discussed and provided on in office cystoscopy and InterStim Follow-up in office cystoscopy in 6-8 weeks; or sooner with any issues, concerns, and or questions. Orders: Orders AMB Urinalysis Automated Today Z13.9 - Encounter for screening, unspecified AMB Post Void Residual by ultrasound Today R39.15 - Urgency of urination Medications: New vibegron (Gemtesa) 75 mg PO DAILY 30 days 30 tabs 1RF N32.81 - Overactive bladder Patient Instructions: The patient had an opportunity to ask questions regarding the treatment plan. All questions were answered. Physical exam, labs, and imaging were discussed and reviewed in detail. As well as risks, benefits, and discussion of treatment choices. No major barriers to understanding were identified. The patient expressed understanding and agreement with the above treatment plan. The patient was made aware they should contact our office by phone for worsening of their current condition, the appearance of new symptoms, or with any questions or concerns. Compliance is encouraged with any medications and follow up testing that is ordered. It is a privilege to be allowed the opportunity to participate in? your urological care.? Again, if you have any questions or concerns If you have any questions or concerns please do not hesitate to contact me. The office is [phone]. This note is constructed using voice recognition software. While every effort has been made to ensure accuracy manager community outreach errors may have been included. Yours sincerely, MINA Baum Coding Level of Care Code Est Pt Level 4 (31088) Diagnoses Urinary urgency R39.15 Urinary frequency R35.0 Incontinence R32 CPT Codes Post Residual Void - PVR CPT Code: 47549-Bnam Void Residual by ultrasound ([id number])
== END 2023-01-02 14:17 | disposition home or self-care (01) ==
PROVIDERS: PCP Internal Medicine; Visit Provider Nurse Practitioner Family
DX: R39.15 Urgency of urination (principal); R35.0 Frequency of micturition; R32 Unspecified urinary incontinence
CPT/HCPCS: 99214

== ENCOUNTER → 2023-01-02 13:35 | Outpatient (BNVA) | payer OTHER, SELFPAY | PROVIDERS: PCP Internal Medicine; Visit Provider Nurse Practitioner Family | DX: R39.15 Urgency of urination (principal); R35.0 Frequency of micturition; R32 Unspecified urinary incontinence | CPT/HCPCS: 51798; 99212 ==

== ENCOUNTER 2023-02-14 13:14 | Outpatient (REF) | payer OTHER, SELFPAY ==
[2023-02-14 16:50] LABS: Urine Cytology See Pathology rpt
== END 2023-02-14 13:15 | disposition home or self-care (01) ==
LOC: HO.LAB 13:14
PROVIDERS: PCP Internal Medicine; Visit Provider Urology
DX: N30.90 Cystitis, unspecified without hematuria (principal); R32 Unspecified urinary incontinence; R39.15 Urgency of urination; R35.0 Frequency of micturition
CPT/HCPCS: 52000; 87086; 87088; 87186; 88112

== ENCOUNTER 2023-02-14 13:14 | Outpatient (AMB) | payer OTHER, SELFPAY ==
--- NOTE | 2023-02-14 13:15 | MHC.OFFVIS ---
Intake Intake Visit Reasons: 6w/cysto Allergies No Known Allergies [No Known Allergies*] Allergy (Verified 01/02/23 14:26) HPI HPI Comments History of Present Illness Details Xochilt is a 63-year-old female who presents today to the office for a follow-up. 02/14/2023? She is followed today for cystoscopy procedure. She has seen Nurse Practitioner Carla Padilla on 01/02/2023. She was advised to stop oxybutynin, and Gemtesa was prescribed for OAB symptoms. She has been taking Gemtesa but does not feel it is helping. She denies any history of smoking. I reviewed the retroperitoneum US results from 12/06/2022 revealed negative for renal calculi, no parenchymal lesions noted. Evaluation today?UA? leukocytes: negative; blood: negative. Consent was obtained to perform cystoscopy procedure. 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 Plan: Cystitis. Urinary Urgency I will send urine for MicroGen testing and for urine cytology. Macrobid, Diflucan ON LICENSE OF [facility] Medical History Anxiety Arthritis Chronic post-traumatic stress disorder (PTSD) Depression Elevated cholesterol HTN (hypertension) Major depressive disorder, recurrent severe without psychotic features Urinary incontinence Surgical History H/O lumbar discectomy H/O tubal ligation H/O: hysterectomy History of bladder suspension procedure History of repair of rectocele History of sleeve gastrectomy History of total bilateral knee replacement (TKR) Hx of abdominoplasty Hx of arthroscopic knee surgery Hx of blepharoplasty Hx of colonoscopy S/P Botox injection S/P trigger finger release Family History Father Diabetes Heart disease Mother Diabetes Heart disease Family/Other Diabetes Heart disease Social History Household Members: None Alcohol intake: current Alcohol intake frequency: does not drink Cigarettes Per Day: 2 Years Smoked: 40 Current occupational status: unemployed Current occupation: right handed Review of Systems Const All systems reviewed & are unremarkable except as noted in HPI and below Reports no additional complaints Eyes Reports no additional complaints ENT Reports no additional complaints Card Denies dyspnea Resp Denies cough and Denies dyspnea GI Reports no additional complaints Reports no additional complaints Musc Reports no additional complaints Skin/Breast Denies rash and Denies unusual bruising Neuro Reports no additional complaints Psych Reports no additional complaints Endo Reports no additional complaints Wilber/Lymph Reports no additional complaints Aller/Immun Reports no additional complaints Office Procedures Cystoscopy Consent Discussed risk and benefit or proposed procedure with the patient. Information consent for procedure given to the patient. Discussed technical aspects, risks, benefits and alternatives in full. Addressed all of the patient's questions and concerns regarding the procedure. The patient demonstrated knowledge and understanding. They wish to proceed with this procedure. Preparation The patient was prepped in the usual manner. A circuit board drafter was present and in the room. Genitalia was prepped with betadine solution in a sterile manner. Lidocaine Jelly 2% was placed into the urethra and 16Fr flexible Olympus cystoscope was inserted into the meatus after adequate lubrication. Procedure Time out per protocol performed. Bladder Inspection Bladder Inspection: The bladder was inspected in its entirety with utilization retroflexion displaying: Tumor(s): no suspicious lesions visualized Trabeculation: N/A Mucosal Erthema: mild Orifices: normal shape and position Urethra: normal Cystoscopy findings: There were bullous changes noted on several quadrants of the bladder consistent with cystitis follicularis. [id number] DISPOSABLE SCOPE URO-G FLEXIBLE SCOPE Procedure code (CPT) selection complete Office Meds lidocaine HCl 2 % mucosal jelly in applicator Performing Provider: Rosa Maria Schwarz MD Performing Location: [facility] Administered by: Yaquelin Herrera RN on 02/14/23 13:37 Dose Route Admin Location Dispensed Lot Number Expiration Date [facility] Medical Massage Therapist 10 mL intra-urethral 20 mL naproxen 500 mg tablet Performing Provider: Rosa Maria Schwarz MD Performing Location: [facility] Administered by: Yaquelin Herrera RN on 02/14/23 13:37 Dose Route Admin Location Dispensed Lot Number Expiration Date [place] Medical Massage Therapist 500 mg PO 1 tab ciprofloxacin HCl 500 mg tablet Performing Provider: Rosa Maria Schwarz MD Performing Location: [facility] [place] [facility] Administered by: Yaquelin Herrera RN on 02/14/23 13:37 Dose Route Admin Location Dispensed Lot Number Expiration Date [place] Medical Massage Therapist 500 mg PO 1 tab Results Reviewed Results Reviewed: Date of Service: 12/06/22 EXAMINATION: US RETROPERITONEAL COMPLETE (RENAL) CLINICAL INFORMATION: Unspecified urinary incontinence. COMPARISON: None available. FINDINGS: RIGHT KIDNEY: 12.8 x 5.1 x 4.9 cm (SAG x AP x TRV). The kidney is normal in size, contour, and echogenicity. Renal cortical thickness is normal. No calculi or focal parenchymal lesions. No hydronephrosis. Probable small cortical defect at the junction of the upper and mid kidney. LEFT KIDNEY: 11.8 x 5.3 x 5.4 cm (SAG x AP x TRV). The kidney is normal in size, contour, and echogenicity. Renal cortical thickness is normal. No calculi or focal parenchymal lesions. No hydronephrosis. The left kidney appears lobulated. BLADDER: Well distended and normal. Bilateral ureteral jets are demonstrated. Prevoid bladder volume is 260 mL. Postvoid bladder volume is 16 mL. IMPRESSION: 1. Probable small cortical defect at the junction of the upper and mid right kidney. 2. Lobulated left kidney. 3. Small post void residual Assessment & Plan Assessment & Plan (1) Urinary urgency: Code(s): R39.15 - Urgency of urination (2) Urinary frequency: Code(s): R35.0 - Frequency of micturition (3) Incontinence: Code(s): R32 - Unspecified urinary incontinence (4) Cystitis: Code(s): N30.90 - Cystitis, unspecified without hematuria Plan Cystitis. Urinary Urgency I will send urine for MicroGen testing and for urine cytology. Macrobid, Diflucan Orders: Orders AMB Cystoscopy 02/14/23 R32 - Unspecified urinary incontinence Urine Cytology 02/14/23 N39.0 - Urinary tract infection, site not specified Urine Culture 02/14/23 N39.0 - Urinary tract infection, site not specified Medications: New fluconazole (Diflucan) 150 mg orally take on day 7 and day 14 of the Macrobid therapy 2 tabs 0RF nitrofurantoin monohyd/m-cryst 100 mg (Macrobid) must administer with a meal/food, as may cause GI upset 100 mg PO BID 28 caps 0RF Discontinued oxybutynin chloride ER Discontinued Reason: Doctor's Order 10 mg PO DAILY 30 days 30 tabs 1RF N32.81 - Overactive bladder Patient Instructions: The patient had an opportunity to ask questions regarding treatment plan. All questions were answered. Imaging, Laboratory studies and physical exam results were discussed and reviewed in detail. No major barriers to understanding were identified. The patient expressed understanding and agreement with the above treatment plan.? ? ? The patient is aware they should contact our office by phone for worsening of their current condition or the appearance of new symptoms. Compliance is encouraged with any medications and followup testing that is ordered.? ? ? It is a privilege to be allowed the opportunity to participate in the urologic care of your patient. If you have any questions or concerns regarding treatment for the above conditions please do not hesitate to contact me. The office telephone contact is [phone].? ? ? This note is constructed in part using voice recognition software. While every effort has been made to ensure accuracy material expeditor errors may have been included.? ? ? Yours sincerely,? ? ? Rosa Maria Schwarz MD? Coding Level of Care Code Est Pt Level 3 (57353) Diagnoses Urinary urgency R39.15 Urinary frequency R35.0 Incontinence R32 Cystitis N30.90 CPT Codes Cystoscopy - CPT: 16751-Aogrkfitwu ([id number])
== END 2023-02-14 15:21 | disposition home or self-care (01) ==
PROVIDERS: PCP Internal Medicine; Visit Provider Urology
DX: R32 Unspecified urinary incontinence (principal)
CPT/HCPCS: 52000

== ENCOUNTER 2023-04-29 07:55 | Day surgery (SDC) | payer OTHER, MEDICAID, SELFPAY ==
[2023-04-25 15:11] VITALS: BMI 36.4
--- NOTE | 2023-04-26 07:49 | MHC.SHP ---
Pre-Procedural Eval Section A Date of Service: 04/26/23 The patient is an INPATIENT: No Changes since office visit: No Cold of Flu in the past 2 weeks, No New Medical Problems, No Changes in Medication and No Patient answered all questions The History & Physical has been completed within 30 days and I have reviewed it.: Yes Section B Chief Complaint: Age-related nuclear cataract, right eye Allergies: Allergies Allergy/AdvReac Type Severity Reaction Status Date / Time TRUMAN Inhibitors AdvReac Cough Verified 04/25/23 14:56 Plan Diagnosis/Plan: Unchanged I have reviewed the history and physical and performed a pertinent physical examination on my patient. No changes have occurred unless specified. Time Spent With Patient Time: Total time managing care of this patient today ____ minutes.
--- NOTE | 2023-04-26 09:52 | HO.ANESPROP2 ---
Documented by User: Olga Smith NP 04/26/23 09:52 HPI - Anesthesia Eval Consult details Narrative: 63yo Right Cataract Extraction IOL Insertion Medically cleared No previous cataract on record PMF Active Problems Active Problems: All Active Problems (Updated 04/25/23 @ 11:07 by Hannah Venegas RN) Cystitis (Acute) Urinary urgency (Acute) Urinary frequency (Acute) Incontinence (Acute) Acromioclavicular joint arthritis (Acute) Right arm pain (Acute) Right rotator cuff tendinitis (Acute) Right shoulder pain (Acute) Tubular adenoma of colon (Acute) Abdominal bloating (Acute) Chronic idiopathic constipation (Acute) Major depressive disorder, recurrent severe without psychotic features (Acute) Chronic post-traumatic stress disorder (PTSD) (Acute) Past Medical History Medical History Cataract Chronic post-traumatic stress disorder (PTSD) Major depressive disorder, recurrent severe without psychotic features Arthritis Urinary incontinence Anxiety Depression Elevated cholesterol HTN (hypertension) Family History Family History Father Diabetes Heart disease Mother Diabetes Heart disease Family/Other Diabetes Heart disease Surgical History Surgical History History of repair of rectocele S/P trigger finger release S/P Botox injection Hx of colonoscopy Hx of abdominoplasty Hx of blepharoplasty Hx of arthroscopic knee surgery History of sleeve gastrectomy History of bladder suspension procedure H/O lumbar discectomy History of total bilateral knee replacement (TKR) H/O tubal ligation H/O: hysterectomy Social History Social History Household Members: None Household Members Other:: adult son Are you a primary hospice care transitions coordinator to a significant other at home: No Do you presently have visiting nurse or other home services: No Alcohol intake: current Alcohol intake frequency: holidays/special occasions only Patient Tobacco Use Status: Former Tobacco user Quit Date: 2016 Tobacco use type: Cigarette Cigarettes Per Day: 2 Years Smoked: 40 Use of substances other than those prescribed or required for medical reasons: No Have you been hit, kicked, punched, or otherwise hurt by someone within the past year? If so, by whom?: No Are you DNR?: No Advance Directives: No Advance Directives Information Provided: Yes Advance Directives on File: No Recently lost weight without trying: No Current occupational status: unemployed Current occupation: right handed Meds Allergies Allergy/AdvReac Type Severity Reaction Status Date / Time TRUMAN Inhibitors AdvReac Cough Verified 04/25/23 14:56 Home Medications Medication Instructions Recorded Confirmed Last Taken Type losartan 100 1 tab PO DAILY 10/24/21 04/25/23 Unknown History mg-hydrochlorothiazide 25 mg tablet vilazodone 40 mg tablet (Viibryd) 40 mg PO QAM 10/24/21 04/25/23 Unknown History acetaminophen 500 mg capsule 1,000 mg PO Q6H PRN Pain 11/28/21 04/25/23 Unknown History lorazepam 0.5 mg tablet 0.5 mg PO TID PRN Anxiety 11/28/21 04/25/23 Unknown History naproxen 250 mg tablet 250 mg PO BID PRN Pain 11/28/21 04/25/23 Unknown History trazodone 100 mg tablet 100 mg PO BEDTIME 11/28/21 04/25/23 Unknown History amlodipine 10 mg tablet 10 mg PO DAILY 11/19/22 04/25/23 04/29/23 History aripiprazole 5 mg tablet 5 mg PO DAILY 11/19/22 04/25/23 Unknown History pravastatin 80 mg tablet 80 mg PO DAILY 11/19/22 04/25/23 Unknown History Exam Height,Weight and Vital Signs: Height 5 ft 4 in Weight 96.162 kg Assessment and Plan Assessment Anesthesia Assessment: Chart Reviewed Documented by User: Marilee Sarah MD 04/29/23 10:30 [facility] Active Problems Active Problems: All Active Problems (Updated 04/29/23 @ 09:40 by Marilee Sarah MD) Cystitis (Acute) Urinary urgency (Acute) Urinary frequency (Acute) Incontinence (Acute) Acromioclavicular joint arthritis (Acute) Right arm pain (Acute) Right rotator cuff tendinitis (Acute) Right shoulder pain (Acute) Tubular adenoma of colon (Acute) Abdominal bloating (Acute) Chronic idiopathic constipation (Acute) Major depressive disorder, recurrent severe without psychotic features (Acute) Chronic post-traumatic stress disorder (PTSD) (Acute) Past Medical History Medical History Cataract Chronic post-traumatic stress disorder (PTSD) Major depressive disorder, recurrent severe without psychotic features Arthritis Urinary incontinence Anxiety Depression Elevated cholesterol HTN (hypertension) Family History Family History Father Diabetes Heart disease Mother Diabetes Heart disease Family/Other Diabetes Heart disease Family history of problems with anesthesia: No Surgical History Surgical History History of repair of rectocele S/P trigger finger release S/P Botox injection Hx of colonoscopy Hx of abdominoplasty Hx of blepharoplasty Hx of arthroscopic knee surgery History of sleeve gastrectomy History of bladder suspension procedure H/O lumbar discectomy History of total bilateral knee replacement (TKR) H/O tubal ligation H/O: hysterectomy History of Problems with Anesthesia: No Social History Social History Household Members: None Household Members Other:: adult son Are you a primary hospice care transitions coordinator to a significant other at home: No Do you presently have visiting nurse or other home services: No Alcohol intake: current Alcohol intake frequency: holidays/special occasions only Patient Tobacco Use Status: Former Tobacco user Quit Date: 2016 Tobacco use type: Cigarette Cigarettes Per Day: 2 Years Smoked: 40 Use of substances other than those prescribed or required for medical reasons: No Have you been hit, kicked, punched, or otherwise hurt by someone within the past year? If so, by whom?: No Are you DNR?: No Advance Directives: No Advance Directives Information Provided: Yes Advance Directives on File: No Recently lost weight without trying: No Current occupational status: unemployed Current occupation: right handed Meds Allergies Allergy/AdvReac Type Severity Reaction Status Date / Time TRUMAN Inhibitors AdvReac Cough Verified 04/25/23 14:56 Home Medications Medication Instructions Recorded Confirmed Last Taken Type losartan 100 1 tab PO DAILY 10/24/21 04/25/23 Unknown History mg-hydrochlorothiazide 25 mg tablet vilazodone 40 mg tablet (Viibryd) 40 mg PO QAM 10/24/21 04/25/23 Unknown History acetaminophen 500 mg capsule 1,000 mg PO Q6H PRN Pain 11/28/21 04/25/23 Unknown History lorazepam 0.5 mg tablet 0.5 mg PO TID PRN Anxiety 11/28/21 04/25/23 Unknown History naproxen 250 mg tablet 250 mg PO BID PRN Pain 11/28/21 04/25/23 Unknown History trazodone 100 mg tablet 100 mg PO BEDTIME 11/28/21 04/25/23 Unknown History amlodipine 10 mg tablet 10 mg PO DAILY 11/19/22 04/25/23 04/29/23 History aripiprazole 5 mg tablet 5 mg PO DAILY 11/19/22 04/25/23 Unknown History pravastatin 80 mg tablet 80 mg PO DAILY 11/19/22 04/25/23 Unknown History Exam Height,Weight and Vital Signs: Height 5 ft 4 in Weight 96.162 kg Vital Signs Temp Pulse Resp BP Pulse Ox O2 Del Method 04/29/23 09:03 97.2 F 81 16 135/81 92 Room Air Airway Mallampati Class: II TM Dist: >3cm Neck ROM: Full Loose/Missing/Broken Teeth: No Heart: RRR Lungs: CTAB Assessment and Plan Assessment Anesthesia Assessment: Anesthesia Plan Discussed Final Anesthetic Review Family History of Problems with Anesthesia: No History of Problems with Anesthesia: No NPO: Yes ASA Class: II Final Preanesthetic Review: No Changes in Pt Med Stat, Meds/Allgs Chart Reviewed, Consent Obtained/Reviewed and Anes Risks/Benef Reviewed Patient Risk: Low Procedure Risk: Low Assessment/Block/Sedation in SS: Assess/Block/Sedation-SS Anesthetic Plan Anesthetic Plan: MAC: Disposition: Standard PACU
[2023-04-29 09:03] VITALS: BP 135/81; PULSE 81; RESP 16; TEMP 36.2; O2SAT 92
[2023-04-29] MEDS: Tetracaine HCl/PF 0.5% Oph Sol 4 ML DROPS 1 DROP EYE-RIGHT (09:08)
[2023-04-29] MEDS: Lactated Ringers 500 ML 50 ML IV (09:08)
[2023-04-29] MEDS: Cyclopentolate 1 % Ophth Sol 2 ML DRPBTL 1 DROP EYE-RIGHT ×3 (09:08→09:16)
[2023-04-29] MEDS: Tropicamide 1 % Ophth Sol 3 ML BTL 1 DROP EYE-RIGHT ×3 (09:09→09:17)
[2023-04-29] MEDS: Phenylephrine HCL 2.5% Oph SoL 2 ML BOTTLE 1 DROP EYE-RIGHT ×3 (09:10→09:18)
[2023-04-29] MEDS: Ketorolac Tromethamine 0.5% Op 5 ML DROPS 1 DROP EYE-RIGHT ×3 (09:10→09:17)
--- NOTE | 2023-04-29 10:09 | HO.PNOPHT ---
Ophthalmology Procedure Procedure Date of Service: 04/29/23 Ophthalmology Viscoelastic: Healcarl Kwongt Dual Pack Pro Ophthalmology Lenses: TECNIS [id number] (23.5) Procedure Notes: PREOPERATIVE DIAGNOSIS: Decreased visual acuity right eye secondary to cataract POSTOPERATIVE DIAGNOSIS: Same PROCEDURE: Right cataract extraction with intraocular lens insertion SURGEON: Alejandro Olivia M.D. ANESTHESIA: Topical/MAC ESTIMATED BLOOD LOSS: None COMPLICATIONS: None After obtaining informed consent, the patient was brought to the operating room suite and placed in the supine position. After adequate sedation per anesthesia, topical drops of Tetracaine were given to the right eye. The eye was then prepped and draped in the usual sterile fashion. The operating room microscope was then positioned over the operative eye and a lid speculum placed. A paracentesis was created. Viscoelastic was then instilled into the anterior chamber. A three plane incision was then created temporally, utilizing a 2.85 mm keratome. Capsulotomy forceps were then utilized to create a circular tear capsulotomy. Hydrodissection and hydrodelineation were carried out until adequate mobilization of the nucleus occurred. Phacoemulsification was then utilized to remove the dense central nucleus followed by removal of the cortical material utilizing the automated aspiration irrigation unit. Viscoelastic was instilled into the posterior capsular bag followed by placement of a posterior chamber intraocular lens without difficulty. The residual Viscoelastic was then removed utilizing the automated IA machine. The wound was checked and found to be watertight. The patient tolerated the procedure well and the lid speculum was removed. Intracameral injection of Vigamox 0.1 mL followed by a subtenon injection of Kenalog-40 0.2 mL were administered. The patient will be seen in the a.m.
[2023-04-29 10:33] VITALS: BP 131/63; PULSE 76; RESP 18; TEMP 36.2; O2SAT 94
== END 2023-04-29 10:47 | disposition home or self-care (01) ==
PROVIDERS: PCP Internal Medicine; Visit Provider Ophthalmology
PROC: (CPT 66985; principal; 2023-04-29 10:30)
DX: H25.11 Age-related nuclear cataract, right eye (principal); H52.4 Presbyopia; H11.153 Pinguecula, bilateral; I10 Essential (primary) hypertension; F32.A Depression, unspecified; F43.12 Post-traumatic stress disorder, chronic; F17.210 Nicotine dependence, cigarettes, uncomplicated; Z79.1 Long term (current) use of non-steroidal anti-inflammatories (NSAID); Z79.899 Other long term (current) drug therapy
CPT/HCPCS: 66984; J2250; J3010; J3301; V2788

== ENCOUNTER 2023-05-13 07:43 | Day surgery (SDC) | payer OTHER, SELFPAY ==
[2023-04-25 15:13] VITALS: BMI 36.4
--- NOTE | 2023-05-10 07:23 | MHC.SHP ---
Pre-Procedural Eval Section A Date of Service: 05/10/23 The patient is an INPATIENT: No Changes since office visit: No Cold of Flu in the past 2 weeks, No New Medical Problems, No Changes in Medication and No Patient answered all questions The History & Physical has been completed within 30 days and I have reviewed it.: Yes Section B Chief Complaint: Age-related nuclear cataract, left eye Allergies: Allergies Allergy/AdvReac Type Severity Reaction Status Date / Time TRUMAN Inhibitors AdvReac Cough Verified 04/25/23 14:56 Plan Diagnosis/Plan: Unchanged I have reviewed the history and physical and performed a pertinent physical examination on my patient. No changes have occurred unless specified. Time Spent With Patient Time: Total time managing care of this patient today ____ minutes.
--- NOTE | 2023-05-10 09:50 | P.CONAN_ITS ---
Documented by User: Olga Smith NP 05/10/23 09:55 HPI - Anesthesia Eval Consult details Narrative: 63yo F for Left Cataract Extraction IOL Insertion Medically cleared Right eye 04/29/23: Fent 50, Midaz 2 PMFSH Active Problems Active Problems: All Active Problems (Updated 04/25/23 @ 11:07 by Hannah Venegas, [email or web address]) Cystitis (Acute) Urinary urgency (Acute) Urinary frequency (Acute) Incontinence (Acute) Acromioclavicular joint arthritis (Acute) Right arm pain (Acute) Right rotator cuff tendinitis (Acute) Right shoulder pain (Acute) Tubular adenoma of colon (Acute) Abdominal bloating (Acute) Chronic idiopathic constipation (Acute) Major depressive disorder, recurrent severe without psychotic features (Acute) Chronic post-traumatic stress disorder (PTSD) (Acute) Past Medical History Medical History Cataract Chronic post-traumatic stress disorder (PTSD) Major depressive disorder, recurrent severe without psychotic features Arthritis Urinary incontinence Anxiety Depression Elevated cholesterol HTN (hypertension) Family History Family History Father Diabetes Heart disease Mother Diabetes Heart disease Family/Other Diabetes Heart disease Family history of problems with anesthesia: No Surgical History Surgical History History of repair of rectocele S/P trigger finger release S/P Botox injection Hx of colonoscopy Hx of abdominoplasty Hx of blepharoplasty Hx of arthroscopic knee surgery History of sleeve gastrectomy History of bladder suspension procedure H/O lumbar discectomy History of total bilateral knee replacement (TKR) H/O tubal ligation H/O: hysterectomy History of Problems with Anesthesia: No Social History Social History Household Members: None Household Members Other:: adult son Are you a primary insurance healthcare representative to a significant other at home: No Do you presently have visiting nurse or other home services: No Alcohol intake: current Alcohol intake frequency: holidays/special occasions only Patient Tobacco Use Status: Former Tobacco user Quit Date: 2016 Tobacco use type: Cigarette Cigarettes Per Day: 2 Years Smoked: 40 Use of substances other than those prescribed or required for medical reasons: No Have you been hit, kicked, punched, or otherwise hurt by someone within the past year? If so, by whom?: No Are you DNR?: No Advance Directives: No Advance Directives Information Provided: Yes Advance Directives on File: No Recently lost weight without trying: No Nutrition Risks: No Nutritional Risk Current occupational status: unemployed Current occupation: right handed Meds Allergies Allergy/AdvReac Type Severity Reaction Status Date / Time TRUMAN Inhibitors AdvReac Cough Verified 05/13/23 08:38 Home Medications Medication Instructions Recorded Confirmed Last Taken Type losartan 100 1 tab PO DAILY 10/24/21 04/25/23 Unknown History mg-hydrochlorothiazide 25 mg tablet vilazodone 40 mg tablet (Viibryd) 40 mg PO QAM 10/24/21 04/25/23 Unknown History acetaminophen 500 mg capsule 1,000 mg PO Q6H PRN Pain 11/28/21 04/25/23 Unknown History lorazepam 0.5 mg tablet 0.5 mg PO TID PRN Anxiety 11/28/21 04/25/23 Unknown History naproxen 250 mg tablet 250 mg PO BID PRN Pain 11/28/21 04/25/23 Unknown History trazodone 100 mg tablet 100 mg PO BEDTIME 11/28/21 04/25/23 Unknown History amlodipine 10 mg tablet 10 mg PO DAILY 11/19/22 04/25/23 04/29/23 History aripiprazole 5 mg tablet 5 mg PO DAILY 11/19/22 04/25/23 Unknown History pravastatin 80 mg tablet 80 mg PO DAILY 11/19/22 04/25/23 Unknown History Exam Height,Weight and Vital Signs: Height 5 ft 4 in Weight 96.162 kg Assessment and Plan Final Anesthetic Review Family History of Problems with Anesthesia: No History of Problems with Anesthesia: No Documented by User: Maria Eugenia Maurice MD 05/13/23 08:40 [facility] Past Medical History Medical History Cataract Chronic post-traumatic stress disorder (PTSD) Major depressive disorder, recurrent severe without psychotic features Arthritis Urinary incontinence Anxiety Depression Elevated cholesterol HTN (hypertension) Family History Family History Father Diabetes Heart disease Mother Diabetes Heart disease Family/Other Diabetes Heart disease Surgical History Surgical History History of repair of rectocele S/P trigger finger release S/P Botox injection Hx of colonoscopy Hx of abdominoplasty Hx of blepharoplasty Hx of arthroscopic knee surgery History of sleeve gastrectomy History of bladder suspension procedure H/O lumbar discectomy History of total bilateral knee replacement (TKR) H/O tubal ligation H/O: hysterectomy Social History Social History Household Members: None Household Members Other:: adult son Are you a primary insurance healthcare representative to a significant other at home: No Do you presently have visiting nurse or other home services: No Alcohol intake: current Alcohol intake frequency: holidays/special occasions only Patient Tobacco Use Status: Former Tobacco user Quit Date: 2016 Tobacco use type: Cigarette Cigarettes Per Day: 2 Years Smoked: 40 Use of substances other than those prescribed or required for medical reasons: No Have you been hit, kicked, punched, or otherwise hurt by someone within the past year? If so, by whom?: No Are you DNR?: No Advance Directives: No Advance Directives Information Provided: Yes Advance Directives on File: No Recently lost weight without trying: No Nutrition Risks: No Nutritional Risk Current occupational status: unemployed Current occupation: right handed Meds Allergies Allergy/AdvReac Type Severity Reaction Status Date / Time TRUMAN Inhibitors AdvReac Cough Verified 05/13/23 08:38 Home Medications Medication Instructions Recorded Confirmed Last Taken Type losartan 100 1 tab PO DAILY 10/24/21 04/25/23 Unknown History mg-hydrochlorothiazide 25 mg tablet vilazodone 40 mg tablet (Viibryd) 40 mg PO QAM 10/24/21 04/25/23 Unknown History acetaminophen 500 mg capsule 1,000 mg PO Q6H PRN Pain 11/28/21 04/25/23 Unknown History lorazepam 0.5 mg tablet 0.5 mg PO TID PRN Anxiety 11/28/21 04/25/23 Unknown History naproxen 250 mg tablet 250 mg PO BID PRN Pain 11/28/21 04/25/23 Unknown History trazodone 100 mg tablet 100 mg PO BEDTIME 11/28/21 04/25/23 Unknown History amlodipine 10 mg tablet 10 mg PO DAILY 11/19/22 04/25/23 04/29/23 History aripiprazole 5 mg tablet 5 mg PO DAILY 11/19/22 04/25/23 Unknown History pravastatin 80 mg tablet 80 mg PO DAILY 11/19/22 04/25/23 Unknown History Exam Airway Mallampati Class: II TM Dist: >3cm Neck ROM: Full Denture: Upper (multiple fillings bilateral ) Heart: rrr Lungs: cta Assessment and Plan Assessment Anesthesia Assessment: Anesthesia Plan Discussed and Chart Reviewed Final Anesthetic Review NPO: Yes ASA Class: III Final Preanesthetic Review: No Changes in Pt Med Stat, Meds/Allgs Chart Reviewed, Consent Obtained/Reviewed and Anes Risks/Benef Reviewed Patient Risk: Low Procedure Risk: Low Anesthetic Plan Anesthetic Plan: MAC: Disposition: Standard PACU
[2023-05-13] MEDS: Tetracaine HCl/PF 0.5% Oph Sol 4 ML DROPS 1 DROP EYE-LEFT (08:38)
[2023-05-13] MEDS: Tropicamide 1 % Ophth Sol 3 ML BTL 1 DROP EYE-LEFT ×3 (08:40→08:56)
[2023-05-13] MEDS: Cyclopentolate 1 % Ophth Sol 2 ML DRPBTL 1 DROP EYE-LEFT ×3 (08:42→08:58)
[2023-05-13] MEDS: Ketorolac Tromethamine 0.5% Op 5 ML DROPS 1 DROP EYE-LEFT ×3 (08:44→09:00)
[2023-05-13] MEDS: Phenylephrine HCL 2.5% Oph SoL 2 ML BOTTLE 1 DROP EYE-LEFT ×3 (08:46→09:02)
[2023-05-13 08:57] VITALS: BP 141/74; PULSE 77; RESP 16; TEMP 36.1; O2SAT 98
[2023-05-13] MEDS: Lactated Ringers 500 ML 50 ML IV (09:07)
--- NOTE | 2023-05-13 09:13 | HO.PNOPHT ---
Ophthalmology Procedure Procedure Date of Service: 05/13/23 Ophthalmology Viscoelastic: Healon Duet Dual Pack Pro Ophthalmology Lenses: TECNIS [id number] (22.5) Procedure Notes: PREOPERATIVE DIAGNOSIS: Decreased visual acuity left eye secondary to cataract POSTOPERATIVE DIAGNOSIS: Same PROCEDURE: Left cataract extraction with intraocular lens insertion SURGEON: Alejandro Olivia M.D. ANESTHESIA: Topical/MAC ESTIMATED BLOOD LOSS: None COMPLICATIONS: None After obtaining informed consent, the patient was brought to the operation room suite and placed in the supine position. After adequate sedation per anesthesia, topical drops of Tetracaine were given to the left eye. The eye was then prepped and draped in the usual sterile fashion. The operating room microscope was then positioned over the operative eye and a lid speculum placed. A paracentesis was created. Viscoelastic was then instilled into the anterior chamber. A three plane incision was then created temporally, utilizing a 2.85 mm keratome. Capsulotomy forceps were then utilized to create a circular tear capsulotomy. Hydrodissection and hydrodelineation were carried out until adequate mobilization of the nucleus occurred. Phacoemulsification was then utilized to remove the dense central nucleus followed by removal of the cortical material utilizing the automated aspiration irrigation unit. Viscoat elastic was instilled into the posterior capsular bag followed by placement of a posterior chamber intraocular lens without difficulty. The residual Viscoat elastic was then removed utilizing the automated IA machine. The wound was check and found to be watertight. The patient tolerated the procedure well and the lid speculum was removed. Intracameral injection of Vigamox 0.1 mL followed by a subtenon injection of Kenalog-40 0.2 mL were administered. The patient will be seen in the a.m.
[2023-05-13 09:37] VITALS: BP 145/85; PULSE 74; RESP 16; TEMP 36.6; O2SAT 97
== END 2023-05-13 09:53 | disposition home or self-care (01) ==
PROVIDERS: PCP Internal Medicine; Visit Provider Ophthalmology
PROC: (CPT 66985; principal; 2023-05-13 09:40)
DX: H25.12 Age-related nuclear cataract, left eye (principal); H54.7 Unspecified visual loss; I10 Essential (primary) hypertension; Z79.899 Other long term (current) drug therapy
CPT/HCPCS: 66984; J2250; J3010; J3301; V2632

== ENCOUNTER 2023-07-04 14:22 | Outpatient (REF) | payer OTHER, SELFPAY ==
[2023-07-04 14:31] LABS: MANUAL DIFF FLAG NO
[2023-07-04 15:23] LABS: Basophils Absolute Auto 0.1 X10*3/uL (0.0-0.2); Basophils Percent Auto 0.9 % (0-2); Eosinophils Absolute Auto 0.1 X10*3/uL (0.0-0.4); Eosinophils Percent Auto 1.7 % (0-4); Hematocrit 38.7 % (37.0-47.0); Hemoglobin 12.4 g/dl (12.0-16.0); Imm Gran Abs Auto 0.02 X10*3/uL (0.00-0.03); Imm Gran Pct Auto 0.4 % (0.0-0.4); Lymphocytes Absolute Auto 1.7 X10*3/uL (1.2-4.9); Lymphocytes Percent Auto 30.9 % (20-40); Mean Corpuscular Hemoglobin 27.7 pg (27.0-33.0); Mean Corpuscular Volume 86.4 fL (80.0-98.0); Mean Platelet Volume 10.7 fL (9.4-12.3); Monocytes Absolute Auto 0.4 X10*3/uL (0.1-1.2); Monocytes Percent Auto 7.8 % (2-11); Neutrophils Absolute Auto 3.1 x10*3/uL (2.0-8.3); Neutrophils Percent Auto 58.3 % (45-73); Platelet Count 352 X10*3/uL (160-400); Red Blood Count 4.48 X10*6/uL (4.20-5.50); Red Cell Distribution Width 14.6 % (11.0-16.0); White Blood Count 5.4 X10*3/uL (4.8-10.8)
[2023-07-04 15:33] LABS: Estimated Average Glucose 131 mg/dL; Hemoglobin A1c % 6.2 % (<6.0)
[2023-07-04 16:03] LABS: Alanine Aminotransferase 20 U/L (0-31); Albumin Level 4.3 g/dL (3.5-5.0); Alkaline Phosphatase 74 U/L (39-117); Anion Gap 13 (12-20); Aspartate Amino Transferase 16 U/L (5-31); Bilirubin Total 0.2 mg/dL (0.0-1.0); Blood Urea Nitrogen 11 mg/dL (9-16); Calcium 9.7 mg/dL (8.4-10.2); Carbon Dioxide 31 mmol/L (22-29); Chloride 99 mmol/L (96-108); Cholesterol 171 mg/dL (<200); Estimated Glomerular Filt Rate 58; Glucose Random 119 mg/dL (60-115); HDL Cholesterol 34 mg/dL (>40); LDL Cholesterol Calculated 93 mg/dL (<100); Potassium 3.6 mmol/L (3.3-5.1); Sodium 139 mmol/L (135-145); Total Protein 8.2 g/dL (6.5-8.0); Triglycerides 222 mg/dL (<150)
== END 2023-07-04 14:23 | disposition home or self-care (01) ==
LOC: HO.LAB 14:22
PROVIDERS: PCP Internal Medicine; Visit Provider Internal Medicine
DX: E78.2 Mixed hyperlipidemia (principal); I10 Essential (primary) hypertension; R73.01 Impaired fasting glucose; F17.201 Nicotine dependence, unspecified, in remission
CPT/HCPCS: 36415; 80053; 80061; 83036; 85025

== ENCOUNTER 2023-10-04 11:36 | Outpatient (REF) | payer OTHER, SELFPAY ==
[2023-10-04 12:22] LABS: Estimated Average Glucose 146 mg/dL; Hemoglobin A1c % 6.7 % (<6.0)
[2023-10-04 13:18] LABS: Alanine Aminotransferase 23 U/L (0-31); Albumin Level 4.2 g/dL (3.5-5.0); Alkaline Phosphatase 77 U/L (39-117); Anion Gap 15 (12-20); Aspartate Amino Transferase 17 U/L (5-31); Bilirubin Total 0.3 mg/dL (0.0-1.0); Blood Urea Nitrogen 14 mg/dL (9-16); Calcium 9.4 mg/dL (8.4-10.2); Carbon Dioxide 29 mmol/L (22-29); Chloride 99 mmol/L (96-108); Cholesterol 174 mg/dL (<200); Estimated Glomerular Filt Rate 56; Glucose Random 97 mg/dL (60-115); HDL Cholesterol 29 mg/dL (>40); LDL Cholesterol Calculated 106 mg/dL (<100); Potassium 3.9 mmol/L (3.3-5.1); Sodium 139 mmol/L (135-145); Total Protein 7.9 g/dL (6.5-8.0); Triglycerides 195 mg/dL (<150)
== END 2023-10-04 11:37 | disposition home or self-care (01) ==
LOC: HO.LAB 11:36
PROVIDERS: PCP Internal Medicine; Visit Provider Internal Medicine
DX: Z00.01 Encounter for general adult medical examination with abnormal findings (principal); R73.01 Impaired fasting glucose; M54.50 Low back pain, unspecified; I10 Essential (primary) hypertension; E78.2 Mixed hyperlipidemia
CPT/HCPCS: 36415; 80053; 80061; 83036

== ENCOUNTER 2024-02-22 00:12 | Emergency (ER) | payer OTHER, SELFPAY ==
[2024-02-22] VITALS (8 sets, daily range): BP systolic 133–179; BP diastolic 68–93; PULSE 72–82; RESP 16–20; TEMP 36.6; O2SAT 96–97; BMI 34.3
--- NOTE | 2024-02-22 | ECG_ITS ---
Test Reason : chest pain Blood Pressure : / mmHG Vent. Rate : 079 BPM Atrial Rate : 079 BPM P-R Int : 182 ms QRS Dur : 092 ms QT Int : 406 ms P-R-T Axes : 047 -18 046 degrees QTc Int : 465 ms Normal sinus rhythm Cannot rule out Inferior infarct , age undetermined Abnormal ECG When compared with ECG of 12-SEP-2021 17:22, No significant change was found Referred By: Generic ED Physician Electronically Signed By:GALE HALL
[2024-02-22 00:44] LABS: MANUAL DIFF FLAG NO
[2024-02-22 00:45] LABS: Basophils Percent Auto 0.7 % (0-2); Eosinophils Absolute Auto 0.2 X10*3/uL (0.0-0.4); Eosinophils Percent Auto 2.8 % (0-4); Hematocrit 38.7 % (37.0-47.0); Imm Gran Abs Auto 0.02 X10*3/uL (0.00-0.03); Imm Gran Pct Auto 0.4 % (0.0-0.4); Lymphocytes Absolute Auto 1.7 X10*3/uL (1.2-4.9); Lymphocytes Percent Auto 30.4 % (20-40); Mean Corpuscular HGB Conc 33.6 g/dl (31.0-35.0); Mean Corpuscular Hemoglobin 28.4 pg (27.0-33.0); Mean Corpuscular Volume 84.5 fL (80.0-98.0); Mean Platelet Volume 10.4 fL (9.4-12.3); Monocytes Absolute Auto 0.4 X10*3/uL (0.1-1.2); Monocytes Percent Auto 7.4 % (2-11); Neutrophils Absolute Auto 3.3 x10*3/uL (2.0-8.3); Neutrophils Percent Auto 58.3 % (45-73); Platelet Count 276 X10*3/uL (160-400); Red Blood Count 4.58 X10*6/uL (4.20-5.50); Red Cell Distribution Width 14.9 % (11.0-16.0); White Blood Count 5.7 X10*3/uL (4.8-10.8)
--- NOTE | 2024-02-22 00:59 | PC.NURSE ---
pt from home, a&ox4, respirations even and unlabored. pt reporting onset of headache starting prior to arrival, report her blood pressure is high but reports being unable to check it at home due to her machine being . pt reports hx of high blood pressure and reports being on medications. pt reports she knows when its high . pt denies n/v/d and chest pain.
[2024-02-22 01:01] LABS: Alanine Aminotransferase 16 U/L (0-31); Albumin Level 4.2 g/dL (3.5-5.0); Alkaline Phosphatase 73 U/L (39-117); Anion Gap 16 (12-20); Aspartate Amino Transferase 13 U/L (5-31); Bilirubin Total 0.2 mg/dL (0.0-1.0); Blood Urea Nitrogen 8 mg/dL (9-16); Calcium 9.3 mg/dL (8.4-10.2); Carbon Dioxide 24 mmol/L (22-29); Chloride 105 mmol/L (96-108); Creatinine Clr Calc Pharmacy 76.4; Estimated Glomerular Filt Rate > 60; Glucose Random 102 mg/dL (60-115); Potassium 3.6 mmol/L (3.3-5.1); Sodium 141 mmol/L (135-145); Total Protein 7.9 g/dL (6.5-8.0)
[2024-02-22 01:26] LABS: Troponin-I High Sensitivity < 2.7 ng/L (<3.5-17.0)
--- NOTE | 2024-02-22 01:30 | ED_ITS ---
HPI - General Adult General Chief complaint: General Medical Stated complaint: High BP Time Seen by Provider: 02/22/24 01:29 Source: patient Mode of arrival: ambulatory Limitations: no limitations History of Present Illness ED Provider: Dr. Christie HPI narrative: Patient state that her blood pressure is high and this is causing her to have a Headache and chest pain, she denies shortness of breath. Related Data Home Medications ?Medication ?Instructions ?Recorded ?Confirmed losartan 100 1 tab PO DAILY 10/24/21 04/25/23 mg-hydrochlorothiazide 25 mg tablet vilazodone 40 mg tablet (Viibryd) 40 mg PO QAM 10/24/21 04/25/23 acetaminophen 500 mg capsule 1,000 mg PO Q6H PRN Pain 11/28/21 04/25/23 lorazepam 0.5 mg tablet 0.5 mg PO TID PRN Anxiety 11/28/21 04/25/23 naproxen 250 mg tablet 250 mg PO BID PRN Pain 11/28/21 04/25/23 trazodone 100 mg tablet 100 mg PO BEDTIME 11/28/21 04/25/23 amlodipine 10 mg tablet 10 mg PO DAILY 11/19/22 04/25/23 aripiprazole 5 mg tablet 5 mg PO DAILY 11/19/22 04/25/23 pravastatin 80 mg tablet 80 mg PO DAILY 11/19/22 04/25/23 Previous Rx's ?Medication ?Instructions ?Recorded vibegron 75 mg tablet (Gemtesa) 75 mg PO DAILY 30 days #30 tabs 01/02/23 Allergies Allergy/AdvReac Type Severity Reaction Status Date / Time TRUMAN Inhibitors AdvReac Cough Verified 02/22/24 00:21 Review of Systems 2 Review of Systems: Yes all other systems are reviewed and are negative Neurologic: Denies Sensory deficit (Neuro) PMFSH Past Medical History Medical History Cataract Chronic post-traumatic stress disorder (PTSD) Major depressive disorder, recurrent severe without psychotic features Arthritis Urinary incontinence Anxiety Depression Elevated cholesterol HTN (hypertension) Surgical History History of repair of rectocele S/P trigger finger release S/P Botox injection Hx of colonoscopy Hx of abdominoplasty Hx of blepharoplasty Hx of arthroscopic knee surgery History of sleeve gastrectomy History of bladder suspension procedure H/O lumbar discectomy History of total bilateral knee replacement (TKR) H/O tubal ligation H/O: hysterectomy Family History Family History Father Diabetes Heart disease Mother Diabetes Heart disease Family/Other Diabetes Heart disease Social History Social History Household Members: None Household Members Other:: adult son Are you a primary healthcare recruiter to a significant other at home: No Do you presently have visiting nurse or other home services: No Alcohol intake: current Alcohol intake frequency: holidays/special occasions only Patient Tobacco Use Status: Former Tobacco user Tobacco use type: Cigarette Cigarettes Per Day: 2 Years Smoked: 40 Smoked in Last 30 Days: No Use of substances other than those prescribed or required for medical reasons: No Advance Directives: No Advance Directives Information Provided: Yes Do you have a plan to hurt others: No Plan Current occupational status: unemployed Current occupation: right handed Physical Exam ED Vital Signs: Vital Signs - 24 hr 02/22/24 00:20 02/22/24 00:50 02/22/24 01:46 Temperature 97.9 F Pulse Rate 82 77 Respiratory Rate 20 Blood Pressure 179/93 H 156/83 H 151/72 H Pulse Oximetry 96 Oxygen Delivery Method Room Air 02/22/24 02:31 02/22/24 03:18 02/22/24 04:34 Temperature Pulse Rate 72 78 Respiratory Rate 18 Blood Pressure 152/80 H 141/70 H 154/79 H Pulse Oximetry Oxygen Delivery Method BMI result Body Mass Index 34.3 Const General: healthy appearing Nutritional Appearance: average body habitus Orientation/consciousness: oriented to person and patient oriented x3 Limitations: no limitations HENMT Head: Yes normal to inspection Ears: external ears normal General nose exam: Normal external nose present Mouth: Normal oral and palatal mucosa present and oropharynx normal Throat: Yes posterior oropharynx normal Eyes General: appearance normal, both eyes and all related structures Neck Neck: Yes normal visual inspection Chest Chest palpation & inspection: normal inspection of the chest Resp Auscultation: clear to auscultation bilaterally Cardio Jugular venous distension: no JVD Rate: regular rate Rhythm: regular rhythm Heart sounds: S1 normal heart sound present and S2 normal heart sound present GI Inspection: Yes normal to inspection Palpation (GI): Soft to palpation, nontender and No hepatosplenomegaly present Auscultation: normal bowel sounds General: Yes no CVA tenderness Back/Spine/Pelvis Back: no CVA tenderness Skin General skin exam: no rashes or lesions noted Neuro General: oriented to person and patient oriented x3 Cranial nerves: Yes CN's II-XII intact bilaterally Motor exam (neuro): 5/5 motor strength present throughout Sensory Exam: No Sensory deficit (Neuro) Extrem General: Yes normal to inspection Psych Appearance: grossly normal Course Reevaluation(s) Reevaluation #1: Labs and EKG normal, BP down to the 150s systolic, Troponins normal will dc home Time: 04:45 Medications Administered Discontinued Medications Generic Name Dose Route Start Last Admin Trade Name Freq PRN Reason Stop Dose Admin Amlodipine Besylate 10 mg 02/22/24 01:37 02/22/24 01:46 Amlodipine Besylate 10 Mg Tablet PO 02/22/24 01:38 10 mg ONCE ONE Administration Protocol Losartan Potassium 100 mg 02/22/24 01:37 02/22/24 01:46 Losartan Potassium 50 Mg Tablet PO 02/22/24 01:38 100 mg ONCE ONE Administration Protocol Medical Decision Making Differential Diagnosis Differential Diagnoses: The differential diagnosis associated with the presentation includes (hypertensive urgency, hypertension, cardiac ischemia, anxiety) Admission/Observation Consideration of admission/observation: Escalation of care including admission/observation considered (upon arrival patient was considered for admission) Lab Data 02/22/24 00:36 02/22/24 00:36 Labs: Lab Results 02/22/24 02/22/24 Range/Units 00:36 02:44 WBC 5.7 (4.8-10.8) X10*3/uL RBC 4.58 (4.20-5.50) X10*6/uL Hgb 13.0 (12.0-16.0) g/dl Hct 38.7 (37.0-47.0) % MCV 84.5 (80.0-98.0) fL MCH 28.4 (27.0-33.0) pg MCHC 33.6 (31.0-35.0) g/dl RDW 14.9 (11.0-16.0) % Plt Count 276 (160-400) X10*3/uL MPV 10.4 (9.4-12.3) fL Immature Gran % (Auto) 0.4 (0.0-0.4) % Neut % (Auto) 58.3 (45-73) % Lymph % (Auto) 30.4 (20-40) % [place] % (Auto) 7.4 (2-11) % Eos % (Auto) 2.8 (0-4) % Baso % (Auto) 0.7 (0-2) % Lymph # (Auto) 1.7 (1.2-4.9) X10*3/uL [place] # (Auto) 0.4 (0.1-1.2) X10*3/uL Eos # (Auto) 0.2 (0.0-0.4) X10*3/uL Baso # (Auto) 0.0 (0.0-0.2) X10*3/uL Abs Immat Gran (auto) 0.02 (0.00-0.03) X10*3/uL Absolute Neuts (auto) 3.3 (2.0-8.3) x10*3/uL Absolute Nucleated RBC 0.000 (0.0-0.012) X10*3/uL Nucleated RBC % (auto) 0.0 (0.0-0.2) /100WBC Sodium 141 (135-145) mmol/L Potassium 3.6 (3.3-5.1) mmol/L Chloride 105 (96-108) mmol/L Carbon Dioxide 24 (22-29) mmol/L Anion Gap 16 (12-20) BUN 8 L (9-16) mg/dL Creatinine 0.79 (0.5-1.4) mg/dL Estim Creat Clear Calc 76.4 Estimated GFR > 60 Random Glucose 102 (60-115) mg/dL Calcium 9.3 (8.4-10.2) mg/dL Total Bilirubin 0.2 (0.0-1.0) mg/dL AST 13 (5-31) U/L ALT 16 (0-31) U/L Alkaline Phosphatase 73 (39-117) U/L Troponin I High Sens < 2.7 < 2.7 (<3.5-17.0) ng/L Total Protein 7.9 (6.5-8.0) g/dL Albumin 4.2 (3.5-5.0) g/dL Independent Interpretation I performed an independent interpretation of an: EKG (sinus 80, no st or twave changes) Independent Historian Clinical information obtained from an independent historian. History obtained from or confirmed by: Other (son) Chronic Conditions Patient?s care impacted by: Diabetes and Hypertension Social Determinants Patient?s care significantly limited by Social Determinants of Health including: Low income Discharge Plan Discharge Clinical Impression: Essential (primary) hypertension, Chest pain Patient Disposition: Home, Self-Care Instructions: Chest Pain (ED), Hypertension (ED) Prescriptions: No Action trazodone 100 mg Tablet 100 mg PO BEDTIME losartan-hydrochlorothiazide 100-25 mg tablet 1 tab PO DAILY Viibryd 40 mg tablet 40 mg PO QAM lorazepam 0.5 mg tablet 0.5 mg PO TID PRN (Reason: Anxiety) naproxen 250 mg tablet 250 mg PO BID PRN (Reason: Pain) acetaminophen 500 mg capsule 1,000 mg PO Q6H PRN (Reason: Pain) Gemtesa 75 mg tablet 75 mg PO DAILY 30 Days Qty: 30 1RF amlodipine 10 mg tablet 10 mg PO DAILY pravastatin 80 mg tablet 80 mg PO DAILY aripiprazole 5 mg tablet 5 mg PO DAILY Referrals: Sudha Block MD [Primary Care Provider] - 3 days Print Language: Setswana
[2024-02-22] MEDS: amLODIPine Besylate 10 MG TABLET PO (01:46)
[2024-02-22] MEDS: Losartan Potassium 50 MG TABLET 100 MG PO (01:46)
--- NOTE | 2024-02-22 01:47 | PC.NURSE ---
pt medicated per mar, tolerated well with water.
[2024-02-22 03:09] LABS: Troponin-I High Sensitivity < 2.7 ng/L (<3.5-17.0)
== END 2024-02-22 04:58 | disposition home or self-care (01) ==
PROVIDERS: Emergency Provider Emergency Medicine; PCP Internal Medicine
DX: I10 Essential (primary) hypertension (principal); R07.9 Chest pain, unspecified; R51.9 Headache, unspecified; Z79.899 Other long term (current) drug therapy
CPT/HCPCS: 36415; 80053; 84484; 85025; 93005; 99283; 99285

== ENCOUNTER 2024-06-01 11:27 | Outpatient (REF) | payer OTHER, SELFPAY ==
[2024-06-01 12:26] LABS: Estimated Average Glucose 128 mg/dL; Hemoglobin A1C 143.3633 umol/L; Hemoglobin A1c % 6.1 % (<6.0); Total Hemoglobin (HGBA1C) 3309.7094 umol/L
[2024-06-01 13:02] LABS: Alanine Aminotransferase 21 U/L (0-31); Albumin Level 4.1 g/dL (3.5-5.0); Alkaline Phosphatase 76 U/L (39-117); Anion Gap 12 (12-20); Aspartate Amino Transferase 20 U/L (5-31); Bilirubin Total 0.3 mg/dL (0.0-1.0); Blood Urea Nitrogen 9 mg/dL (9-16); Calcium 9.1 mg/dL (8.4-10.2); Carbon Dioxide 27 mmol/L (22-29); Chloride 107 mmol/L (96-108); Cholesterol 180 mg/dL (<200); Estimated Glomerular Filt Rate 57; Glucose Random 98 mg/dL (60-115); HDL Cholesterol 34 mg/dL (>40); LDL Cholesterol Calculated 101 mg/dL (<100); Potassium 3.9 mmol/L (3.3-5.1); Sodium 142 mmol/L (135-145); Total Protein 7.5 g/dL (6.5-8.0); Triglycerides 225 mg/dL (<150)
[2024-06-01 13:08] LABS: Creatinine Urine 183.97 mg/dL; Microalbum/Creatinine Ratio Ur 10.3 ug/mg cr (<30)
== END 2024-06-01 11:28 | disposition home or self-care (01) ==
LOC: HO.LAB 11:27
PROVIDERS: PCP Internal Medicine; Visit Provider Internal Medicine
DX: E11.9 Type 2 diabetes mellitus without complications (principal); E78.2 Mixed hyperlipidemia; F43.10 Post-traumatic stress disorder, unspecified; I10 Essential (primary) hypertension
CPT/HCPCS: 36415; 80053; 80061; 82043; 82570; 83036

== ENCOUNTER 2024-08-26 11:18 | Outpatient (REF) | payer OTHER, SELFPAY ==
[2024-08-26 13:39] LABS: Alanine Aminotransferase 19 U/L (0-31); Albumin Level 4.3 g/dL (3.5-5.0); Alkaline Phosphatase 79 U/L (39-117); Anion Gap 13 (12-20); Aspartate Amino Transferase 19 U/L (5-31); Bilirubin Total 0.3 mg/dL (0.0-1.0); Blood Urea Nitrogen 10 mg/dL (9-16); Calcium 9.6 mg/dL (8.4-10.2); Carbon Dioxide 29 mmol/L (22-29); Chloride 103 mmol/L (96-108); Estimated Glomerular Filt Rate > 60; Glucose Random 113 mg/dL (60-115); Potassium 3.8 mmol/L (3.3-5.1); Sodium 141 mmol/L (135-145); Total Protein 8.1 g/dL (6.5-8.0)
[2024-08-26 13:43] LABS: Estimated Average Glucose 134 mg/dL; Hemoglobin A1c % 6.3 % (<6.0); Total Hemoglobin (HGBA1C) 3558.4757 umol/L
--- OUTSIDE RECORDS SUMMARY | 2024-08-26 13:48 | XMS_ITS ---
[facility] Team Providers Care Hide Inspector And Sorter Name Role Phone Franklyn Silva Unavailable Unavailable Allergies and adverse reactions No Known Allergies Care Team Name Role Address Phone Organization Dates Franklyn Silva Attending Physician [address] [place] [address], [phone], [place] (Office): [facility] 03/07/2012 - 03/20/2012 Immunizations Immunization Status Vaccine Details Vaccine Code CodeSystem Date Notes TB 1 Step Mantoux (PPD) completed tuberculin skin test; purified protein derivative solution, intradermal lotNumber: [id number] Given Left Forearm 96 CVX created date: 03/09/2012 consent date: 03/08/2012 administere d date: 03/08/2012 TB 1 Step Mantoux (PPD) completed tuberculin skin test; purified protein derivative solution, intradermal lotNumber: [id number] Given Left Forearm 96 CVX created date: 03/02/2012 consent date: 03/01/2012 administere d date: 03/01/2012 Educated by on 03/01/2012 Reason for Referral No Reasons for Referral Entered Social History Social History Observation Description Start Date End Date Code Code System Current Smoking Status Tobacco smoking consumption unknown [id number] SNOMED CT Sex Assigned At Female 1960 69412-9 [facility] Vital Signs Code Code System Vitals Name Values and Units Timing Information 9279-1 [facility] Respiratory Rate Value=18.0 Units=/m in 03/20/2012 8462-4 [facility] Blood Pressure-Diastolic Value=56 Un its=mmHg 03/20/2012 8480-6 [facility] Blood Pressure-Systolic Nzwgp=752 Un its=mmHg 03/20/2012 8310-5 [facility] Body Temperature Value=97.3 Units=?? F 03/20/2012 8867-4 [facility] Heart rate Value=77.0 Units=/min 98477-2 [facility] O2 % dC Oximetry Value=95.0 Units= % 03/08/2012 61399-5 [facility] Weight Hjalb=445.8 Units=Lbs 02/2012
== END 2024-08-26 11:19 | disposition home or self-care (01) ==
LOC: HO.10HDL 11:18
PROVIDERS: Visit Provider Internal Medicine
DX: E11.9 Type 2 diabetes mellitus without complications (principal); E78.2 Mixed hyperlipidemia; I10 Essential (primary) hypertension; R15.1 Fecal smearing; R32 Unspecified urinary incontinence
CPT/HCPCS: 36415; 80053; 83036

== ENCOUNTER 2024-09-25 13:46 | Outpatient (AMB) | payer OTHER, SELFPAY ==
--- NOTE | 2024-09-25 14:04 | HO.NEPHOV_ITS ---
Vital Signs 09/25/24 14:06 Weight 209 lb BP 115/68 Blood Pressure Location Rt brachial Position Sitting Pulse 65 Pulse Source Pulse Oximeter Pulse Oximetry (%) 97 Oxygen Delivery Method Room Air Intake Visit Reasons: ENP: Uncontrolled HTN-Conf Cyber Security Administrator Required: No Accompanied by: Self / Same As Patient Allergies TRUMAN Inhibitors Adverse Reaction (Verified 09/25/24 14:07) Cough Do you need a note to return to daycare/school/sports/work: No HPI Comments Details: I had the privilege of seeing Xochilt in consultation for labile blood pressure. She has hypertension for a long time and is on multiple anti hypertensive medications. She was going to get some specific treatment for her depression but couldn't have it due to labile blood pressure. She denies hypokalemia, hypercalcemia, uncontrolled thyroid dysfunction, renal dysfunction, proteinuria, edema, CAD, CVA, CHF, PAD or MONIKA. She has no H/O drug use, no palpitations or orthostatic symptoms. She is a pre diabetic. She did not have any specific complaints at the time of this office visit [facility] Medical History (Updated 09/25/24 @ 14:29 by Gil Rico MD) Diabetes mellitus Adenoma Sleep apnea Cataract Chronic post-traumatic stress disorder (PTSD) Major depressive disorder, recurrent severe without psychotic features Arthritis Urinary incontinence Anxiety Depression Elevated cholesterol HTN (hypertension) Surgical History History of repair of rectocele S/P trigger finger release S/P Botox injection Hx of colonoscopy Hx of abdominoplasty Hx of blepharoplasty Hx of arthroscopic knee surgery History of sleeve gastrectomy History of bladder suspension procedure H/O lumbar discectomy History of total bilateral knee replacement (TKR) H/O tubal ligation H/O: hysterectomy Family History Father Diabetes Heart disease Mother Diabetes Heart disease Family/Other Diabetes Heart disease Social History Household Members: None Household Members Other:: adult son Are you a primary respite care provider to a significant other at home: No Do you presently have visiting nurse or other home services: No Alcohol intake: current Alcohol intake frequency: holidays/special occasions only Patient Tobacco Use Status: Former Tobacco user Tobacco use type: Cigarette Cigarettes Per Day: 2 Years Smoked: 40 Current occupational status: unemployed Current occupation: right handed Review of Systems Const All systems reviewed & are unremarkable except as noted in HPI and below Physical Exam Vital Signs: Last Vital Signs Pulse 65 09/25/24 14:06 BP 115/68 09/25/24 14:06 Pulse Ox 97 09/25/24 14:06 Oxygen Delivery Method Room Air 09/25/24 14:06 Const General: comfortable and no acute distress Orientation/consciousness: patient oriented x3 HEENT Head: Yes normocephalic Mouth: Normal oral and palatal mucosa present Eyes EOM: EOMs intact bilaterally Neck Neck: Yes supple Resp Auscultation: clear to auscultation bilaterally Cardio Jugular venous distension: no JVD Rate: regular rate GI Palpation (GI): Soft to palpation Auscultation: normal bowel sounds General: Yes no CVA tenderness Back/Spine/Pelvis Back: no CVA tenderness Skin General skin exam: no rashes or lesions noted Neuro General: patient oriented x3 and moves all extremities Extrem General: Yes no pedal edema Results Reviewed Nephrology Results: Sodium 141 mmol/L (135-145) 08/26/24 Potassium 3.8 mmol/L (3.3-5.1) 08/26/24 Chloride 103 mmol/L (96-108) 08/26/24 Carbon Dioxide 29 mmol/L (22-29) 08/26/24 BUN 10 mg/dL (9-16) 08/26/24 Creatinine 0.84 mg/dL (0.5-1.4) 08/26/24 Calcium 9.6 mg/dL (8.4-10.2) 08/26/24 Assessment & Plan Assessment & Plan (1) HTN (hypertension): Code(s): I10 - Essential (primary) hypertension Category: Medical Qualifiers: Hypertension type: primary hypertension Qualified Code(s): I10 - Essential (primary) hypertension Plan Xochilt has long standing hypertension and is on multiple anti hypertensive m edications. She is a pre diabetic. I ordered further work up including imaging studies, blood work as well as a 24 hour BP monitor. She needs to lose weight and cut back Na in the diet. She needs to avoid NSAID's and maintain good hydration. I did not make any medication changes today but discussed about BP , W/U and management strategies. Answered all questions. F/U given Orders: Orders Cortisol Random 09/25/24 I10 - Essential (primary) hypertension Renin 09/25/24 I10 - Essential (primary) hypertension TSH reflex Free T4 09/25/24 I10 - Essential (primary) hypertension Metanephrines, Plasma 09/25/24 I10 - Essential (primary) hypertension Aldosterone 09/25/24 I10 - Essential (primary) hypertension US renal BI 2 Weeks I10 - Essential (primary) hypertension US renal doppler 2 Weeks I10 - Essential (primary) hypertension AMB 24 HR B/P Monitor PLACEMENT 09/25/24 I10 - Essential (primary) hypertension Coding Level of Care Code New Pt Level 4 (26928) Diagnoses Primary hypertension I10 Hypertension type: primary hypertension
[2024-09-25 14:06] VITALS: BP 115/68; PULSE 65; O2SAT 97
== END 2024-09-25 14:32 | disposition home or self-care (01) ==
LOC: HO.HKA 13:47
PROVIDERS: PCP Internal Medicine; Referring Provider Internal Medicine; Visit Provider Internal Medicine Nephrology
DX: I10 Essential (primary) hypertension (principal)
CPT/HCPCS: 99204

== ENCOUNTER → 2024-09-25 13:46 | Outpatient (BNVA) | payer OTHER, SELFPAY | PROVIDERS: PCP Internal Medicine; Referring Provider Internal Medicine; Visit Provider Internal Medicine Nephrology | DX: I10 Essential (primary) hypertension (principal) | CPT/HCPCS: 99202 ==

== ENCOUNTER 2024-09-28 14:46 | Outpatient (AMB) | payer OTHER, SELFPAY ==
--- NOTE | 2024-09-28 14:49 | A.OFFVIS_ITS ---
Intake Visit Reasons: Bladder Issues Intake Note: Patient is present today for bladder issues Urology Medications: Gemtesa Blood Thinner: none PVR: 0ml Copper Miner Required: No Accompanied by: Self / Same As Patient Allergies TRUMAN Inhibitors Adverse Reaction (Verified 09/28/24 15:38) Cough Medication List - Last Reconciled 09/28/24 by KARISSA Baum-CHELLE acetaminophen 1,000 mg PO Q6H PRN amlodipine 10 mg PO DAILY aripiprazole 5 mg PO DAILY clonidine HCl 0.1 mg PO BID lorazepam 0.5 mg PO TID PRN losartan-hydrochlorothiazide 100-25 mg 1 tab PO DAILY metoprolol succinate ER 100 mg PO DAILY naproxen 250 mg PO BID PRN pravastatin 80 mg PO DAILY trazodone 100 mg PO BEDTIME vibegron (Gemtesa) 75 mg PO DAILY 30 days vilazodone (Viibryd) 40 mg PO QAM HPI Comments Details: Mateo is a pleasant 64-year-old female patient of Dr. Block. She has a past medical history of anxiety, arthritis, chronic PTSD, depression, elevated cholesterol, hypertension, and major depressive disorder without psy chotic features. She presents to the office today for follow-up. Of note, patient was last seen approximately 18 months ago at which time she underwent an in office cystoscopy with Dr. 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 She was prescribed Macrobid and Diflucan and her urine was sent for MicroGen testing. In discussion with the patient today she continues to report mixed urinary incontinence. She discusses at length her longstanding history of mixed urinary incontinence. She has previously trialed oxybutynin, tolterodine, VESIcare, and Myrbetriq in the past with Dr. Flores. She also underwent Botox and did not find this helpful. In review of patient's chart it appears she had been prescribed Gemtesa however patient reports never starting this medication. We discussed potential causes of mixed urinary incontinence as well as further treatment options and risks and benefits of these treatment options. She reports utilizing approximately 3 Jessica pads per day. She also reports a previous history of 5 vaginal births in the past. In office urinalysis results reviewed with the patient today. PVR 0 mL. She otherwise denies hematuria foul- smelling urine, dysuria, changes to urinary stream, flank pain, fever, and or chills. We discussed obtaining retroperitoneal ultrasound for further assessment evaluation as well as trial of Gemtesa. We also discussed potential near future in office urodynamics for further assessment evaluation. All questions were answered. She otherwise offers no other issues or concerns at this time. [facility] Medical History Diabetes mellitus Adenoma Sleep apnea Cataract Chronic post-traumatic stress disorder (PTSD) Major depressive disorder, recurrent severe without psychotic features Arthritis Urinary incontinence Anxiety Depression Elevated cholesterol HTN (hypertension) Surgical History History of repair of rectocele S/P trigger finger release S/P Botox injection Hx of colonoscopy Hx of abdominoplasty Hx of blepharoplasty Hx of arthroscopic knee surgery History of sleeve gastrectomy History of bladder suspension procedure H/O lumbar discectomy History of total bilateral knee replacement (TKR) H/O tubal ligation H/O: hysterectomy Family History Father Diabetes Heart disease Mother Diabetes Heart disease Family/Other Diabetes Heart disease Social History Household Members: None Household Members Other:: adult son Are you a primary resident care provider to a significant other at home: No Do you presently have visiting nurse or other home services: No Alcohol intake: current Alcohol intake frequency: holidays/special occasions only Patient Tobacco Use Status: Former Tobacco user Tobacco use type: Cigarette Cigarettes Per Day: 2 Years Smoked: 40 Current occupational status: unemployed Current occupation: right handed Review of Systems Const Reports as per HPI Eyes Reports no additional complaints ENT Reports no additional complaints Card Reports as per HPI GI Reports as per HPI Reports as per HPI Musc Reports no additional complaints Neuro Reports as per HPI Psych Reports as per HPI Endo Reports no additional complaints Physical Exam Const General: cooperative, healthy appearing, comfortable, no acute distress, well developed, alert and awake Orientation/consciousness: patient oriented x3 Limitations: no limitations HEENT Head: Yes normal to inspection, Yes normocephalic and Yes atraumatic Ears: hearing grossly normal bilaterally Eyes General: appearance normal, both eyes and all related structures Neck Neck: Yes normal visual inspection and Yes trachea midline Chest Chest palpation & inspection: normal inspection of the chest Resp Effort & Inspection: normal respiratory effort and able to speak in complete sentences Cardio Rate: regular rate GI Inspection: Yes normal to inspection General: Yes no CVA tenderness Back/Spine/Pelvis Back: no CVA tenderness Skin General skin exam: no rashes or lesions noted Neuro General: patient oriented x3 Extrem General: Yes normal to inspection Psych Appearance: grossly normal and well kempt Mental Status: mental status grossly normal Speech and movement: Normal speech and movement present and Clear speech present Affect: normal affect Attitude: cooperative Thought process: Normal thought process present Thought content: Normal thought content present Insight: Fair insight present (Psych) Judgement: Fair judgement present (Psych) Results AMB Urinalysis, Automated UA Leukoctes 0 Destiny/uL Last Edit by Ann Bautista on 09/28/24 15:19 UA Nitrite Negative Last Edit by Ann Bautista on 09/28/24 15:19 UA Urobilinogen 0.2 mg/dL Last Edit by Ann Bautista on 09/28/24 15:19 UA Protein 0 mg/dL Last Edit by Ann Bautista on 09/28/24 15:19 UA pH 7.5 Last Edit by Ann Bautista on 09/28/24 15:19 UA Blood 0 Mio/uL Last Edit by Ann Bautista on 09/28/24 15:19 UA Specific [place] 1.010 Last Edit by Ann Bautista on 09/28/24 15:19 UA Ketone Negative Last Edit by Ann Bautista on 09/28/24 15:19 UA Bilirubin 0 mg/dL Last Edit by Ann Bautista on 09/28/24 15:19 UA Glucose 0 mg/dL Last Edit by Ann Bautista on 09/28/24 15:19 Results Reviewed Results Reviewed: Laboratory Last Values Urine pH (Auto) 7.5 09/28/24 08:18 Specific [place] (Auto) 1.010 09/28/24 08:18 Urine Protein (Auto) 0 mg/dL 09/28/24 08:18 Glucose (UA)(Auto) 0 mg/dL 09/28/24 08:18 Urine Ketones (Auto) Negative 09/28/24 08:18 Urine Blood (Auto) 0 Mio/uL 09/28/24 08:18 Urine Nitrite (Auto) Negative 09/28/24 08:18 Urine Bilirubin (Auto) 0 mg/dL 09/28/24 08:18 Urine Urobilinogen (Auto) 0.2 mg/dL 09/28/24 08:18 Leukocyte Esterase (Auto) 0 Destiny/uL 09/28/24 08:18 Assessment & Plan Assessment & Plan (1) Incontinence: Code(s): R32 - Unspecified urinary incontinence Category: Medical Plan In office urinalysis results reviewed with the patient today; as noted above. PVR 0 mL. We discussed at length potential causes of mixed urinary incontinence as well as further treatment options and risks and benefits of these treatment options. Start Gemtesa as discussed and prescribed. We discussed potential near future in office urodynamics for further assessment evaluation. Will obtain retroperitoneal ultrasound for further assessment evaluation. Follow-up in 1-3 months with imaging and PVR; or sooner with any issues, concerns, and or questions. Orders: Orders AMB Urinalysis Automated Today Z13.9 - Encounter for screening, unspecified AMB Post Void Residual by ultrasound Today R39.15 - Urgency of urination US retroperitoneal comp Today R32 - Unspecified urinary incontinence Medications: Refilled vibegron (Gemtesa) 75 mg PO DAILY 30 days 30 tabs 3RF N32.81 - Overactive bladder Patient Instructions: The patient had an opportunity to ask questions regarding the treatment plan. All questions were answered. Physical exam, labs, and imaging were discussed and reviewed in detail. As well as risks, benefits, and discussion of treatment choices. No major barriers to understanding were identified. The patient expressed understanding and agreement with the above treatment plan. The patient was made aware they should contact our office by phone for worsening of their current condition, the appearance of new symptoms, or with any questions or concerns. Compliance is encouraged with any medications and follow up testing that is ordered. It is a privilege to be allowed the opportunity to participate in? your urological care.? Again, if you have any questions or concerns If you have any questions or concerns please do not hesitate to contact me. The office is [phone]. This note is constructed using voice recognition software. While every effort has been made to ensure accuracy cigarette making machine hopper feeder errors may have been included. Yours sincerely, MINA Baum Coding Level of Care Code Est Pt Level 4 (58667) Diagnoses Incontinence R32
== END 2024-09-28 15:41 | disposition home or self-care (01) ==
LOC: HO.HUSH 14:46
PROVIDERS: PCP Internal Medicine; Visit Provider Nurse Practitioner Family
DX: R32 Unspecified urinary incontinence (principal); Z13.9 Encounter for screening, unspecified
CPT/HCPCS: 99214

== ENCOUNTER 2024-09-28 14:46 | Outpatient (REF) | payer OTHER, SELFPAY ==
[2024-09-28 18:03] LABS: TSH reflex Free T4 2.19 uIU/mL (0.32-4.0)
[2024-09-28 18:07] LABS: Cortisol Random 4.8 ug/dL
[2024-10-02 11:48] LABS: Metanephrine, Free 47 pg/mL (<=57); Normetanephrines, Free 161 pg/mL (<=148); Total Metanephrine, Free 208 pg/mL (<=205)
[2024-10-04 12:09] LABS: Renin 0.46 ng/mL/h (0.25-5.82)
== END 2024-09-28 14:47 | disposition home or self-care (01) ==
LOC: HO.LAB 14:46
PROVIDERS: Internal Medicine Nephrology; PCP Internal Medicine; Visit Provider Nurse Practitioner Family
DX: R32 Unspecified urinary incontinence (principal); I10 Essential (primary) hypertension; R39.15 Urgency of urination
CPT/HCPCS: 36415; 51798; 81003; 82088; 82533; 83835; 84244; 84443; 99212

== ENCOUNTER 2024-09-30 13:21 | Outpatient (REF) | payer OTHER, SELFPAY ==
[2024-09-30 15:09] LABS: C Reactive Protein 0.41 mg/dL (< or = 0.50)
[2024-09-30 15:49] LABS: Folate 5.3 ng/mL (> or = 4.0); Vitamin B12 < 148 pg/mL (200-900)
[2024-10-02 13:53] LABS: Transglutaminase IgA <1.0 U/mL
[2024-10-04 14:38] LABS: Vitamin D 25-OH, D2 <4 ng/mL; Vitamin D 25-OH, D3 21 ng/mL; Vitamin D 25-OH, Total 21 ng/mL (30-100)
== END 2024-09-30 13:22 | disposition home or self-care (01) ==
LOC: HO.LAB 13:21
PROVIDERS: PCP Internal Medicine; Visit Provider Nurse Practitioner Family
DX: Z12.11 Encounter for screening for malignant neoplasm of colon (principal); R14.0 Abdominal distension (gaseous); K59.04 Chronic idiopathic constipation; K58.9 Irritable bowel syndrome, unspecified; R10.9 Unspecified abdominal pain; R19.7 Diarrhea, unspecified; E55.9 Vitamin D deficiency, unspecified; Z86.0101 Personal history of adenomatous and serrated colon polyps; Z90.3 Acquired absence of stomach [part of]
CPT/HCPCS: 36415; 82306; 82607; 82746; 86140; 86364; 99212

== ENCOUNTER 2024-09-30 13:21 | Outpatient (AMB) | payer OTHER, SELFPAY ==
--- NOTE | 2024-09-30 13:37 | MHC.OFFVIS ---
Vital Signs 09/30/24 13:38 Height 5 ft 4 in Weight 210 lb BMI 36.0 BP 136/62 Blood Pressure Location Rt brachial Position Sitting Pulse 64 Pulse Source Pulse Oximeter Pulse Oximetry (%) 95 Oxygen Delivery Method Room Air Intake Visit Reasons: colo screening Intake Note: NEW PATIENT for repeat colo screening. Last colo Dr. [place] 2015 Chief Complaint; C/O fecal incontinence and urgency. Pt had previously been established with Leslie Miranda in [id number]. Pt had been rx'd linzess and had taken it for a short time prior to realizing that the medication was too strong for her and caused unwanted / adverse effects. Pt has stopped taking this medication for a few years yet still has incontinence without known triggers. No additional sx or concerns. Gas Engine Operator Required: No Accompanied by: Self / Same As Patient Allergies TRUMAN Inhibitors Adverse Reaction (Verified 09/30/24 13:38) Cough HPI HPI colo screening: Details: COLONOSCOPY 03/04/2020 FINDINGS: Digital rectal exam revealed slightly decreased sphincter tone. No masses were appreciated. Video colonoscope was introduced without difficulty; however, there was slow movement through the region of the angle of the rectosigmoid, which was significantly difficult to distend. We switched from CO2 to air insufflation in slight movement of the patient from her left side to approximately a 45 degrees angle toward her back and we were slowly able to pass through what seem to be a telescoped (question prolapsed) area of the rectosigmoid and distal sigmoid colon. Eventually, we arrived at the descending colon. We were able to easily facilitate movement through transverse, ascending colon down into the cecal cap. Appendiceal orifice was seen. Ileocecal valve was seen. The prep was excellent. Good mucosal detail was seen. Slow removal of the scope. Polyp was identified and was removed excisionally from the region of 52 cm. No additional lesions were seen. Anorectal verge was clear. There were minor diverticula noted in the region of the rectosigmoid. PLAN AND CURRENT RECOMMENDATIONS: With history of tubular adenomas, she is to continue 5-year asymptomatic screening. PATHOLOGY RESULTS Diagnosis Colon, polyp at 52 cm, polypectomy: Tubular adenoma LAST VISIT WITH LESLIE MIRANDA 05/24/2020 Assessment & Plan Assessment & Plan (1) Chronic idiopathic constipation: Code(s): K59.04 - Chronic idiopathic constipation Category: Medical Plan: SHE TELLS ME that she still has the 145 micro g dose and her pharmacy apparently is not yet filled the lower dose of 72 micro g. I am uncertain why not so I will try be sending the prescription with an explanation that the higher dose is being discontinued. She is quite understanding and is agreeable to follow up again in a few weeks to see how this is working. I educate her that if this dose is still too strong then we can moved to a different medication but I could not do it before now because of insurance requirements in step therapy. She is agreeable to follow-up in 3-4 weeks. TODAY'S VISIT 64 years old female with past medical history of hypertension, cystitis, urinary incontinence, tubular adenoma, constipation, PTSD, MDD is here today for pre colonoscopy screening.? Patient has seen Leslie Miranda in the past. Patient reports that she continues with the same symptoms when she saw ANarayanB. Patient reports frequent stool incontinence, sometimes without patient doing aware of it. Patient reports that frequently when she goes to the bathroom she has stool staying on her underwear. Patient reports that she wipes well after having a bowel movement. Patient denies melena, hematochezia, unintentional weight loss or ribbon like stools. She had a colonoscopy in 2019, see above. One tubular adenoma found. Patient denies any abdominal pain or discomfort. Occasional bloating. Denies any dyspepsia, dysphagia or odynophagia. Denies any acid reflux. [facility] Medical History Diabetes mellitus Adenoma Sleep apnea Cataract Chronic post-traumatic stress disorder (PTSD) Major depressive disorder, recurrent severe without psychotic features Arthritis Urinary incontinence Anxiety Depression Elevated cholesterol HTN (hypertension) Surgical History History of repair of rectocele S/P trigger finger release S/P Botox injection Hx of colonoscopy Hx of abdominoplasty Hx of blepharoplasty Hx of arthroscopic knee surgery History of sleeve gastrectomy History of bladder suspension procedure H/O lumbar discectomy History of total bilateral knee replacement (TKR) H/O tubal ligation H/O: hysterectomy Family History Father Diabetes Heart disease Mother Diabetes Heart disease Family/Other Diabetes Heart disease Social History Household Members: None Household Members Other:: adult son Are you a primary career placement specialist to a significant other at home: No Do you presently have visiting nurse or other home services: No Alcohol intake: current Alcohol intake frequency: holidays/special occasions only Patient Tobacco Use Status: Former Tobacco user Tobacco use type: Cigarette Cigarettes Per Day: 2 Years Smoked: 40 Current occupational status: unemployed Current occupation: right handed Review of Systems Const Denies weight gain and Denies weight loss ENT Reports no additional complaints, Denies dysphagia and Denies odynophagia Card Reports no additional complaints Resp Reports no additional complaints GI Denies abdominal pain, Denies belching, Denies melena, Denies bloating, Denies change in bowel habits, Denies dysphagia, Denies excessive flatus, Denies dyspepsia, Denies heartburn, Denies diarrhea, Reports loose stools, Denies nausea, Denies odynophagia and Denies vomiting Reports no additional complaints Musc Reports no additional complaints Neuro Reports no additional complaints Psych Reports no additional complaints Endo Reports no additional complaints Physical Exam Vital Signs: BMI result Body Mass Index 36.0 Const General: healthy appearing, no acute distress and well developed Nutritional Appearance: well nourished Orientation/consciousness: patient oriented x3 Resp Effort & Inspection: normal respiratory effort, able to speak in complete sentences, no tracheal deviation and symmetric chest movement Auscultation: clear to auscultation bilaterally Cardio Rate: regular rate GI Inspection: Yes normal to inspection and No distended Palpation (GI): Soft to palpation, not firm, nontender and No hepatosplenomegaly present Auscultation: normal bowel sounds General: Yes no CVA tenderness Back/Spine/Pelvis Back: no CVA tenderness Skin General skin exam: elasticity normal, turgor normal and dry skin Neuro General: patient oriented x3 Psych Appearance: grossly normal Mental Status: mental status grossly normal Assessment & Plan Assessment & Plan (1) Abdominal bloating: Code(s): R14.0 - Abdominal distension (gaseous) Category: Medical (2) Chronic idiopathic constipation: Code(s): K59.04 - Chronic idiopathic constipation Category: Medical (3) Screen for colon cancer: Code(s): Z12.11 - Encounter for screening for malignant neoplasm of colon Plan Patient was encouraged to look at her diet increase fiber intake. Fiber supplement sent to pharmacy. Will check transglutaminase, vitamin-D, B12, folate. Will check CRP to see if there is any chance that patient might have a IBD if positive will order stool calprotectin. Discussed with patient low FODMAP diet. List of food recommended as well as list of food to avoid given to patient. Patient will return in 3 months we will discuss going for colonoscopy. She is agreeable to this plan and verbalizes understanding of instructions. She was given the opportunity to ask questions and all questions answered. Thank you for allowing me to participate in her care Orders: Orders Transglutaminase IgA Today R10.9 - Unspecified abdominal pain Vitamin D 25-OH (D2 and D3) Today E55.9 - Vitamin D deficiency, unspecified Vitamin B12 and Folate Today R19.7 - Diarrhea, unspecified C Reactive Protein Today K58.9 - Irritable bowel syndrome, unspecified Medications: New methylcellulose (laxative) (Citrucel) 500 mg PO BID 60 tabs 2RF Coding Level of Care Code New Pt Level 4 (72621) Diagnoses Abdominal bloating R14.0 Chronic idiopathic constipation K59.04 Screen for colon cancer Z12.11 Time Spent (min) 45 Comment 35 minutes spent with patient and additional 10 minutes spent reviewing her records
[2024-09-30 13:38] VITALS: BP 136/62; PULSE 64; O2SAT 95; BMI 36.0
== END 2024-09-30 14:14 | disposition home or self-care (01) ==
LOC: HO.HGI 13:22
PROVIDERS: PCP Internal Medicine; Visit Provider Nurse Practitioner Family
DX: Z01.818 Encounter for other preprocedural examination (principal); Z12.11 Encounter for screening for malignant neoplasm of colon; Z86.0101 Personal history of adenomatous and serrated colon polyps
CPT/HCPCS: 99024

== ENCOUNTER → 2024-10-01 13:20 | Outpatient (BNVA) | payer OTHER, SELFPAY | PROVIDERS: PCP Internal Medicine; Visit Provider Internal Medicine Nephrology ==

== ENCOUNTER → 2024-10-02 13:39 | Outpatient (BNVA) | payer OTHER, SELFPAY | PROVIDERS: PCP Internal Medicine; Visit Provider Internal Medicine Nephrology | DX: I10 Essential (primary) hypertension (principal) | CPT/HCPCS: 93786; 93788 ==

== ENCOUNTER 2024-10-07 07:42 | Outpatient (REF) | payer OTHER, SELFPAY ==
--- NOTE | ~2024-10-07 | US_ITS ---
EXAMINATION: Ultrasound retroperitoneal and renal Doppler. CLINICAL INDICATION: Essential/primary hypertension. COMPARISON: None. TECHNIQUE: routine grayscale imaging of kidneys was obtained. Subsequently retroperitoneal ultrasound kidneys and abdominal aorta was performed. FINDINGS: Right kidney: The right kidney measures 12.7 x 5.3 x 4.7 cm. There is normal cortical thickness. No congenital stones, cyst or hydronephrosis seen. There is no perinephric fluid collection. The left kidney: The left kidney measures 11.9 x 5.7 x 5.0 cm. There is normal cortical thickness. No lytic stones, cyst or hydronephrosis. There is no perinephric fluid collection. Renal Doppler exam. Right kidney: The renal artery velocity proximal measures 1 21 cm/second, mid segment measures 1 21 cm/second, distal segment measures 10 4 cm/second. Renal aortic ratio measures 1.69. Average resistive index measures 0.73. Left kidney: The renal artery velocity proximal segment measures 82.6 cm/second, mid segment measures 1 32 cm/second and distal segment measures 1 41 cm/second. RAR measures 1.97. Average resistive index is 0.5. Mid aorta peak systolic velocity measures 71.4 cm/second. US/US renal doppler IMPRESSION: Normal renal ultrasound with no radiopaque calculi or hydronephrosis. Normal bilateral renal Doppler exam with no suspicion for renal artery stenosis. Electronically signed by: Vijay Carroll MD 10/07/2024 09:03 AM EDT
--- NOTE | ~2024-10-07 | US_ITS ---
Ultrasound bilateral renal ultrasound was dictated with ultrasound renal Doppler exam. Electronically signed by: Vijay Carroll MD 10/08/2024 04:01 PM EDT RP
== END 2024-10-07 07:43 | disposition home or self-care (01) ==
LOC: HO.US 07:42
PROVIDERS: PCP Internal Medicine; Visit Provider Internal Medicine Nephrology
DX: I10 Essential (primary) hypertension (principal)
CPT/HCPCS: 76775; 93975

== ENCOUNTER → 2024-10-07 07:46 | Outpatient (BNV) | payer OTHER, SELFPAY | PROVIDERS: PCP Internal Medicine; Visit Provider Radiology Diagnostic Radiology | DX: I10 Essential (primary) hypertension (principal) | CPT/HCPCS: 93975 ==

== ENCOUNTER 2024-10-16 14:17 | Outpatient (AMB) | payer OTHER, SELFPAY ==
--- NOTE | 2024-10-16 15:01 | HO.NEPHOV_ITS ---
Vital Signs 10/16/24 15:04 Height 5 ft 4 in Weight 211 lb 4 oz BMI 36.3 BP 102/54 L Blood Pressure Location Lt brachial Position Sitting Pulse 57 Pulse Source Pulse Oximeter Pulse Oximetry (%) 94 Oxygen Delivery Method Room Air Intake Visit Reasons: 3 weeks [facility] Overlay Operator Required: No Accompanied by: Self / Same As Patient Allergies TRUMAN Inhibitors Adverse Reaction (Verified 10/16/24 15:03) Cough HPI Comments Details: Xochilt was seen in follow up for labile blood pressure. She has hypertension for a long time and is on multiple anti hypertensive medications. She was going to get some specific treatment for her depression but couldn't have it due to labile blood pressure. She denies hypokalemia, hypercalcemia, uncontrolled thyroid dysfunction, renal dysfunction, proteinuria, edema, CAD, CVA, CHF, PAD or MONIKA. She has no H/O drug use, no palpitations or orthostatic symptoms. She is a pre diabetic. She had a 24 hour BPM which showed well controlled BP. She did not have any specific complaints at the time of this office visit [facility] Medical History Diabetes mellitus Adenoma Sleep apnea Cataract Chronic post-traumatic stress disorder (PTSD) Major depressive disorder, recurrent severe without psychotic features Arthritis Urinary incontinence Anxiety Depression Elevated cholesterol HTN (hypertension) Surgical History History of repair of rectocele S/P trigger finger release S/P Botox injection Hx of colonoscopy Hx of abdominoplasty Hx of blepharoplasty Hx of arthroscopic knee surgery History of sleeve gastrectomy History of bladder suspension procedure H/O lumbar discectomy History of total bilateral knee replacement (TKR) H/O tubal ligation H/O: hysterectomy Family History Father Diabetes Heart disease Mother Diabetes Heart disease Family/Other Diabetes Heart disease Social History Household Members: None Household Members Other:: adult son Are you a primary director career services to a significant other at home: No Do you presently have visiting nurse or other home services: No Alcohol intake: current Alcohol intake frequency: holidays/special occasions only Patient Tobacco Use Status: Former Tobacco user Tobacco use type: Cigarette Cigarettes Per Day: 2 Years Smoked: 40 Current occupational status: unemployed Current occupation: right handed Review of Systems Const All systems reviewed & are unremarkable except as noted in HPI and below Physical Exam Vital Signs: Last Vital Signs Pulse 57 10/16/24 15:04 BP 102/54 L 10/16/24 15:04 Pulse Ox 94 10/16/24 15:04 Oxygen Delivery Method Room Air 10/16/24 15:04 BMI result Body Mass Index 36.3 Const General: comfortable and no acute distress Orientation/consciousness: patient oriented x3 HEENT Head: Yes normocephalic Mouth: Normal oral and palatal mucosa present Eyes EOM: EOMs intact bilaterally Neck Neck: Yes supple Resp Auscultation: clear to auscultation bilaterally Cardio Jugular venous distension: no JVD Rate: regular rate GI Palpation (GI): Soft to palpation Auscultation: normal bowel sounds General: Yes no CVA tenderness Back/Spine/Pelvis Back: no CVA tenderness Skin General skin exam: no rashes or lesions noted Neuro General: patient oriented x3 and moves all extremities Extrem General: Yes no pedal edema Results Reviewed Nephrology Results: Sodium 141 mmol/L (135-145) 08/26/24 Potassium 3.8 mmol/L (3.3-5.1) 08/26/24 Chloride 103 mmol/L (96-108) 08/26/24 Carbon Dioxide 29 mmol/L (22-29) 08/26/24 BUN 10 mg/dL (9-16) 08/26/24 Creatinine 0.84 mg/dL (0.5-1.4) 08/26/24 Calcium 9.6 mg/dL (8.4-10.2) 08/26/24 Renal US 10/07/24 Assessment & Plan Assessment & Plan (1) HTN (hypertension): Code(s): I10 - Essential (primary) hypertension Category: Medical Qualifiers: Hypertension type: primary hypertension Qualified Code(s): I10 - Essential (primary) hypertension Plan Xochilt has long standing hypertension and is on multiple anti hypertensive medications. She is a pre diabetic. Her 24 hour BP monitor showed well controlled BP. She needs to lose weight and cut back Na in the diet. She needs to avoid NSAID's and maintain good hydration. I did not make any medication changes today but discussed about BP , W/U and management strategies. Answered all questions. F/U given Coding Level of Care Code Est Pt Level 4 (05263) Diagnoses Primary hypertension I10 Hypertension type: primary hypertension
[2024-10-16 15:04] VITALS: BP 102/54; PULSE 57; O2SAT 94; BMI 36.3
== END 2024-10-16 15:10 | disposition home or self-care (01) ==
LOC: HO.HKA 14:18
PROVIDERS: PCP Internal Medicine; Visit Provider Internal Medicine Nephrology
DX: I10 Essential (primary) hypertension (principal)
CPT/HCPCS: 93790; 99214

== ENCOUNTER → 2024-10-16 14:17 | Outpatient (BNVA) | payer OTHER, SELFPAY | PROVIDERS: PCP Internal Medicine; Visit Provider Internal Medicine Nephrology | DX: I10 Essential (primary) hypertension (principal) | CPT/HCPCS: 99212 ==

== ENCOUNTER 2025-01-18 15:23 | Inpatient (IN) | payer OTHER, SELFPAY ==
[2025-01-18 15:30] VITALS: BP 188/86; PULSE 65; RESP 16; TEMP 36.6; O2SAT 95; BMI 34.3
--- NOTE | 2025-01-18 15:52 | ED.GENADULT ---
HPI - General Adult General Chief complaint: Psychiatric Symptoms Stated complaint: SI Time Seen by Provider: 01/18/25 16:11 Source: patient Mode of arrival: ambulatory Limitations: no limitations History of Present Illness ED Provider: Dr. Marisol Driver HPI narrative: Patient comes to the emergency room complaining of anxiety and depression. Patient states that her anxiety gets so bad that she is losing control, states that she can not function anymore, this makes her feel depressed. Patient denies SI or HI. Patient states that she took Ativan for anxiety but does not feel any better. Patient states that about 3 years ago she was hospitalized for anxiety and depression. However, patient states that nothing really worked well for her. Patient takes as prescribed her medications for both anxiety and depression. Related Data Home Medications ?Medication ?Instructions ?Recorded ?Confirmed losartan 100 1 tab PO DAILY 10/24/21 01/19/25 mg-hydrochlorothiazide 25 mg tablet vilazodone 40 mg tablet (Viibryd) 40 mg PO QAM 10/24/21 01/19/25 amlodipine 10 mg tablet 10 mg PO DAILY 11/19/22 01/19/25 metoprolol succinate 100 mg 100 mg PO DAILY 09/25/24 01/19/25 tablet,extended release 24 hr loratadine 10 mg capsule (Allergy 10 mg PO DAILY 09/30/24 01/19/25 Relief (loratadine)) lorazepam 1 mg tablet 1 mg PO 3XD 09/30/24 01/19/25 meloxicam 15 mg tablet 15 mg PO DAILY 09/30/24 01/19/25 rosuvastatin 40 mg tablet 40 mg PO DAILY 01/19/25 01/19/25 trazodone 100 mg tablet See Rx Instructions .Route .COMPLEX 01/19/25 01/19/25 vibegron 75 mg tablet (Gemtesa) 75 mg PO DAILY 01/19/25 01/19/25 vilazodone 20 mg tablet 20 mg PO DAILY 01/19/25 01/19/25 Previous Rx's ?Medication ?Instructions ?Recorded cholecalciferol (vitamin D3) 50 50 mcg PO DAILY #90 caps 10/05/24 mcg (2,000 unit) capsule cyanocobalamin (vitamin B-12) 1,000 mcg PO DAILY #90 tabs 12/28/24 1,000 mcg tablet,extended release Allergies Allergy/AdvReac Type Severity Reaction Status Date / Time TRUMAN Inhibitors AdvReac Cough Verified 01/18/25 15:34 Review of Systems Review of Systems: Constitutional : No Weight loss, No Fever, No Chills, No Night Sweats, No Fatigue, No Malaise ENT/Mouth : No Hearing loss, No Ear Pain, No Nasal Congestion, No Sinus Pain, No Hoarseness, No sore throat, No Rhinorrhea, No Swallowing Difficulty Eyes: No Eye Pain, No Swelling, No Redness, No Foreign Body, No Discharge, No Vision Changes Cardiovascular : No Chest Pain, No SOB, No Dyspnea on Exertion, No Orthopnea, No Edema, No Palpitations Respiratory : No Cough, No Sputum, No Wheezing, No Smoke Exposure, No Dyspnea Gastrointestinal : No Nausea, No Vomiting, No Diarrhea, No Constipation, No abdominal Pain, No Hematochezia, No Melena Genitourinary : no irregular bleeding, No Dysuria, No Urinary Frequency, No Hematuria, No Urinary Incontinence, No Urgency, No Flank Pain, No Urinary Flow Changes, No Hesitancy Musculoskeletal : No joint pain, No Myalgias, No Joint Swelling Skin : No Skin Lesions, No rash Neuro : No Weakness, No Numbness, No Paresthesias, No Loss of Consciousness, No Dizziness, No Headache Psych : Complaining, depression, no SI or HI alcohol or polysubstance abuse Heme/Lymph: No Bruising, No Bleeding,No Lymphadenopathy Endocrine : No Polyuria, No Polydipsia, No Temperature Intolerance PMFSH Past Medical History Medical History Diabetes mellitus Adenoma Sleep apnea Cataract Chronic post-traumatic stress disorder (PTSD) Major depressive disorder, recurrent severe without psychotic features Arthritis Urinary incontinence Anxiety Depression Elevated cholesterol HTN (hypertension) Surgical History History of repair of rectocele S/P trigger finger release S/P Botox injection Hx of colonoscopy Hx of abdominoplasty Hx of blepharoplasty Hx of arthroscopic knee surgery History of sleeve gastrectomy History of bladder suspension procedure H/O lumbar discectomy History of total bilateral knee replacement (TKR) H/O tubal ligation H/O: hysterectomy Family History Family History Father Diabetes Heart disease Mother Diabetes Heart disease Family/Other Diabetes Heart disease Social History Social History Household Members: None Household Members Other:: adult son Are you a primary live in caregiver to a significant other at home: No Do you presently have visiting nurse or other home services: No Alcohol intake: current Alcohol intake frequency: holidays/special occasions only Patient Tobacco Use Status: Former Tobacco user Tobacco use type: Cigarette Cigarettes Per Day: 2 Years Smoked: 40 Smoked in Last 30 Days: Yes Use of substances other than those prescribed or required for medical reasons: No Advance Directives: No Advance Directives Information Provided: No Do you have a plan to hurt others: No Plan Current occupational status: unemployed Current occupation: right handed Physical Exam ED Exam Exam: Appearance: Alert. Oriented X3. No acute distress. Eyes: Pupils equal, round and reactive to light. ENT: Pharynx normal. Neck: Normal inspection. Neck supple. No lymph nodes noted. No crepitus CVS: Normal heart rate and rhythm. Pulses normal. Normal S1 and S2 Respiratory: No respiratory distress. Breath sounds normal. No Wheezing. No rales Abdomen: Soft and nontender. No rigidity. No distention. Skin: Skin warm and dry. Normal skin color. Normal skin turgor. Extremities: No lower extremity edema. No Lacerations. No Rash Neuro: Oriented X 3. No motor deficit. No sensory deficit. Moving all extremities. No slurred speech. CN 2 through 12 grossly intact Psych: calm, cooperative, seems depressed, slightly tearful Vital Signs: Vital Signs - 24 hr 01/18/25 15:30 01/19/25 07:00 Temperature 97.9 F 98.6 F Pulse Rate 65 64 Respiratory Rate 16 20 Blood Pressure 188/86 H 165/87 H Pulse Oximetry 95 95 Oxygen Delivery Method Room Air Room Air BMI result Body Mass Index 34.3 Course Course Course Narrative: Rapid medical examination performed in triage by Gabby Man PA-C. Patient is a 64 year old assigned female at presenting to the emergency department with increased depression and anxiety. Patient denies any suicidal or homicidal ideation. Detailed physical exam and review of systems are deferred to the chemical packager. Labs ordered. Patient placed back in the waiting room pending room availability and results. Reevaluation(s) Reevaluation #1: DR. Carr's progress note ; 10:15; 01/19/2025. Patient is AAO x3, VSS, no events reported by nursing overnight, under section 12, continue with physician observation, inpatient psych bed is underway. Time: 10:15 Reevaluation #2: Discontinue physician observation patient is admitted to M5. Time: 11:41 Medications Administered Generic Name Dose Route Start Last Admin Trade Name Freq PRN Reason Stop Dose Admin Amlodipine Besylate 10 mg 01/19/25 09:00 01/19/25 09:01 Amlodipine Besylate 10 Mg Tablet PO 10 mg DAILY MOHAMUD Administration Protocol Atorvastatin Calcium 80 mg 01/19/25 09:00 01/19/25 09:48 Atorvastatin Calcium 80 Mg Tablet PO 80 mg DAILY MOHAMUD Administration Cyanocobalamin 1,000 mcg 01/19/25 09:00 01/19/25 09:48 Cyanocobalamin (Vitamin B-12) 1,000 Mcg Tablet PO 1,000 mcg DAILY MOHAMUD Administration Hydrochlorothiazide 25 mg 01/19/25 09:00 01/19/25 09:48 Hydrochlorothiazide 25 Mg Tablet PO 25 mg DAILY MOHAMUD Administration Loratadine 10 mg 01/19/25 09:00 01/19/25 09:01 Loratadine 10 Mg Tablet PO 10 mg DAILY MOHAMUD Administration Lorazepam 1 mg 01/19/25 09:00 01/19/25 09:02 Lorazepam 1 Mg Tablet PO 1 mg TID MOHAMUD Administration Losartan Potassium 100 mg 01/19/25 09:00 01/19/25 09:48 Losartan Potassium 50 Mg Tablet PO 100 mg DAILY MOHAMUD Administration Metoprolol Succinate 100 mg 01/19/25 09:00 01/19/25 09:48 Metoprolol Succinate Er 100 Mg Tab.Er.24h PO 100 mg DAILY MOHAMUD Administration Protocol Naproxen 500 mg 01/19/25 09:00 01/19/25 09:48 Naproxen 500 Mg Tablet PO 500 mg BID MOHAMUD Administration Vilazodone HCl 40 mg 01/19/25 09:00 01/19/25 10:27 Vilazodone Hcl 40 Mg Tablet PO 40 mg DAILY MOHAMUD Administration Vilazodone HCl 20 mg 01/19/25 09:00 01/19/25 09:01 Vilazodone Hcl 20 Mg Tablet PO 20 mg DAILY MOHAMUD Administration Vitamin D 50 mcg 01/19/25 09:00 01/19/25 09:01 Cholecalciferol (Vitamin D3) 25 Mcg Tablet PO 50 mcg DAILY MOHAMUD Administration Discontinued Medications Generic Name Dose Route Start Last Admin Trade Name Shereen PRN Reason Stop Dose Admin Lorazepam 1 mg 01/19/25 03:03 01/19/25 03:08 Lorazepam 1 Mg Tablet PO 01/19/25 03:04 1 mg ONCE ONE Administration Medical Decision Making Medical Decision Making [facility] Narrative: My interpretation of labs: No significant abnormality in patient's hematology or chemistry, no UTI, ETOH and acetaminophen/salicylate levels negative Patient is not SI or HI, section 12 not indicated. I reviewed patient's records, patient was admitted in 2021, admitted for anxiety, depression, PTSD, no SI. Seems that patient has outpatient treatment is not working, patient may need inpatient level of care. Care team consult pending Differential Diagnosis Differential Diagnoses: The differential diagnosis associated with the presentation includes (Anxiety, depression, PTSD) Admission/Observation Consideration of admission/observation: Escalation of care including admission/observation considered (It is likely that patient will need inpatient level of care) Lab Data [facility] Lab Attestation statement: I reviewed the patient's lab results. 01/18/25 16:26 01/18/25 16:26 Labs: Lab Results 01/18/25 01/18/25 Range/Units 16:24 16:26 WBC 6.5 (4.8-10.8) X10*3/uL RBC 4.80 (4.20-5.50) X10*6/uL Hgb 13.3 (12.0-16.0) g/dl Hct 40.2 (37.0-47.0) % MCV 83.8 (80.0-98.0) fL MCH 27.7 (27.0-33.0) pg MCHC 33.1 (31.0-35.0) g/dl RDW 14.6 (11.0-16.0) % Plt Count 279 (160-400) X10*3/uL MPV 11.2 (9.4-12.3) fL Immature Gran % (Auto) 0.6 H (0.0-0.4) % Neut % (Auto) 66.5 (45-73) % Lymph % (Auto) 24.1 (20-40) % [place] % (Auto) 6.9 (2-11) % Eos % (Auto) 1.1 (0-4) % Baso % (Auto) 0.8 (0-2) % Lymph # (Auto) 1.6 (1.2-4.9) X10*3/uL [place] # (Auto) 0.5 (0.1-1.2) X10*3/uL Eos # (Auto) 0.1 (0.0-0.4) X10*3/uL Baso # (Auto) 0.1 (0.0-0.2) X10*3/uL Abs Immat Gran (auto) 0.04 H (0.00-0.03) X10*3/uL Absolute Neuts (auto) 4.3 (2.0-8.3) x10*3/uL Absolute Nucleated RBC 0.000 (0.0-0.012) X10*3/uL Nucleated RBC % (auto) 0.0 (0.0-0.2) /100WBC Sodium 140 (135-145) mmol/L Potassium 3.7 (3.3-5.1) mmol/L Chloride 103 (96-108) mmol/L Carbon Dioxide 26 (22-29) mmol/L Anion Gap 15 (12-20) BUN 11 (9-16) mg/dL Creatinine 0.89 (0.5-1.4) mg/dL Estim Creat Clear Calc 67.8 Estimated GFR > 60 Random Glucose 104 (60-115) mg/dL Calcium 9.6 (8.4-10.2) mg/dL Total Bilirubin 0.3 (0.0-1.0) mg/dL AST 21 (5-31) U/L ALT 20 (0-31) U/L Alkaline Phosphatase 73 (39-117) U/L Total Protein 8.0 (6.5-8.0) g/dL Albumin 4.7 (3.5-5.0) g/dL Urine Color Yellow Urine Appearance Clear Urine pH 7.0 (5.0-9.0) Ur Specific [place] <= 1.005 (1.005-1.025) Urine Protein Negative (Neg-Trace) mg/dL Urine Glucose (UA) Negative (Negative) mg/dL Urine Ketones Negative (Negative) mg/dL Urine Blood Negative (Negative) Urine Nitrite Negative (Negative) Ur Leukocyte Esterase Trace H (Negative) Urine RBC 0-2 (0-2) /HPF Urine WBC 0-5 (0-5) /HPF Ur Squamous Epith Cells 3-5 (0-2) /HPF Urine Bacteria None Seen (None Seen) Hyaline Casts 0-2 (0-2) /LPF Salicylates < 5.0 L (15-30) mg/dL Urine Opiates Screen Not Detected (Not Detect) Ur Buprenorphine Scrn Not Detected (Not Detect) ng/mL Ur Oxycodone Screen Not Detected (Not Detect) ng/mL Urine Methadone Screen Not Detected (Not Detect) ng/mL Urine Fentanyl Screen Not Detected (Not Detect) Acetaminophen < 3 (<30) mcg/mL Ur Barbiturates Screen Not Detected (Not Detect) Ur Phencyclidine Scrn Not Detected (Not Detect) Ur Amphetamines Screen Not Detected (Not Detect) U Benzodiazepines Scrn Not Detected (Not Detect) Urine Cocaine Screen Not Detected (Not Detect) U Marijuana (THC) Screen Not Detected (Not Detect) Ethyl Alcohol < 10 mg/dL External Record Review External record reviewed: Inpatient record Critical Care Time Critical Care Time Critical Care Time: Yes Total Critical Care Time: 35 Attestation: I have personally provided critical care time. Time includes review of lab data, radiology results, discussion with consultants, and monitoring for potential decompensation. Intervention performed as documented. Discharge Plan Discharge Clinical Impression: Anxiety with depression Patient Disposition: Admitted As Inpatient Interventions: [place]-Suicide Risk Severity Scale Last Done: 01/18/25 20:19 Print Language: Romansh
--- NOTE | 2025-01-18 16:17 | PC.NURSE ---
Addendum entered by Claudine Vazquez RN 01/18/25 16:19: Patient is a 64 year old presenting to the emergency department with increased depression, anxiety and states inability to cope for a long time per patient. Noted to be significantly depressed at her nephrology visit but unabe to pursue treatment secondary to labile blood pressure. Patient alert, oriented and cyring. Affect sad and appears hopeless and defeated. Respirations even and non-labored. Pending CARE team eval. Original Note: Medical History Diabetes mellitus Adenoma Sleep apnea Cataract Chronic post-traumatic stress disorder (PTSD) Major depressive disorder, recurrent severe without psychotic features Arthritis Urinary incontinence Anxiety Depression Elevated cholesterol HTN (hypertensio
[2025-01-18 16:33] LABS: MANUAL DIFF FLAG NO
[2025-01-18 16:35] LABS: Hematocrit 40.2 % (37.0-47.0); Hemoglobin 13.3 g/dl (12.0-16.0); Imm Gran Abs Auto 0.04 X10*3/uL (0.00-0.03); Imm Gran Pct Auto 0.6 % (0.0-0.4); Lymphocytes Absolute Auto 1.6 X10*3/uL (1.2-4.9); Mean Corpuscular HGB Conc 33.1 g/dl (31.0-35.0); Mean Corpuscular Hemoglobin 27.7 pg (27.0-33.0); Mean Corpuscular Volume 83.8 fL (80.0-98.0); NRBC Abs Auto 0.000 X10*3/uL (0.0-0.012); NRBC Pct Auto 0.0 /100WBC (0.0-0.2); Platelet Count 279 X10*3/uL (160-400); Red Blood Count 4.80 X10*6/uL (4.20-5.50); White Blood Count 6.5 X10*3/uL (4.8-10.8)
[2025-01-18 16:37] LABS: Appearance Urine Clear; Glucose Urine UA Negative (Negative); PH 7.0 (5.0-9.0); Specific Gravity - Urine <= 1.005 (1.005-1.025); UMIC TRIGGER UA YES
[2025-01-18 16:45] LABS: Cannabinoid Screen Urine Not Detected (Not Detect)
[2025-01-18 16:49] LABS: Alanine Aminotransferase 20 U/L (0-31); Albumin Level 4.7 g/dL (3.5-5.0); Alkaline Phosphatase 73 U/L (39-117); Anion Gap 15 (12-20); Aspartate Amino Transferase 21 U/L (5-31); Blood Urea Nitrogen 11 mg/dL (9-16); Calcium 9.6 mg/dL (8.4-10.2); Carbon Dioxide 26 mmol/L (22-29); Chloride 103 mmol/L (96-108); Creatinine Clr Calc Pharmacy 67.8; Estimated Glomerular Filt Rate > 60; Potassium 3.7 mmol/L (3.3-5.1); Sodium 140 mmol/L (135-145); Total Protein 8.0 g/dL (6.5-8.0)
[2025-01-18 18:17] LABS: Acetaminophen LAB < 3 mcg/mL (<30); Salicylate < 5.0 mg/dL (15-30)
--- NOTE | 2025-01-18 21:19 | MHC.CARE ---
Xochilt presents due to worsening depression and anxiety which are significantly impacting her daily functioning. During the assessment, she appeared thought-blocked and confused at times. She expressed concerns that her current medications are not effective and reported not feeling like herself. The patient is actively help-seeking. [facility] level of care was considered; however, due to the patient's current level of confusion, she is unable to obtain medications. At this time, she would most benefit from an inpatient setting for safety and containment, medication management, and mood stabilization.
--- NOTE | 2025-01-19 00:04 | PC.NURSE ---
Pt sleeping currently, respirations even and unlabored.
[2025-01-19 07:00] VITALS: BP 165/87; PULSE 64; RESP 20; TEMP 37; O2SAT 95
--- NOTE | 2025-01-19 07:38 | ECG_ITS ---
Test Reason : MED REC Blood Pressure : */* mmHG Vent. Rate : 46 BPM Atrial Rate : 46 BPM P-R Int : 204 ms QRS Dur : 92 ms QT Int : 486 ms P-R-T Axes : 51 3 -4 degrees QTcB Int : 425 ms Sinus bradycardia with sinus arrhythmia Nonspecific ST and T wave abnormality Borderline ECG When compared with ECG of 22-Feb-2024 00:20, Vent. rate has decreased by 33 bpm T wave inversion now evident in Inferior leads Referred By: Marisol Driver Electronically Signed By: DEE PAINTING
--- NOTE | 2025-01-19 08:01 | PHA.MEDREC ---
Pharmacy Consult ? Medication Reconciliation Pharmacy has completed the medication reconciliation. Reviewed med rec done by nursing, removed meds not filled in >3 months or never filled.
[2025-01-19] MEDS: Metoprolol Succinate ER 100 MG TAB.ER.24H PO (09:48)
--- NOTE | 2025-01-19 09:59 | PC.NURSE ---
assumed care of patient at 0700, patient is resting quietly in bed. patient medicated per JUL. no signs of acute distress, patient ate breakfast
[2025-01-19 13:10] VITALS: BP 138/69; PULSE 54; RESP 16; TEMP 36.5; O2SAT 96
[2025-01-19 17:30] VITALS: BMI 34.9
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
[2025-01-19 20:00] VITALS: BP 184/75; PULSE 53; RESP 16; TEMP 36.2; O2SAT 95
[2025-01-20 08:20] VITALS: BP 133/66; PULSE 70; RESP 16; TEMP 36.6; O2SAT 96
[2025-01-20 08:37] VITALS: BP 133/66
[2025-01-20 08:38] VITALS: BP 133/66; PULSE 70
[2025-01-20] MEDS: Metoprolol Succinate ER 100 MG TAB.ER.24H PO (08:38)
[2025-01-20 08:40] VITALS: BP 133/66
[2025-01-20 08:46] LABS: Hemoglobin A1C 158.9785 umol/L; Total Hemoglobin (HGBA1C) 3381.0064 umol/L
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
[2025-01-20 09:01] LABS: Alanine Aminotransferase 18 U/L (0-31); Albumin Level 4.2 g/dL (3.5-5.0); Alkaline Phosphatase 72 U/L (39-117); Anion Gap 14 (12-20); Aspartate Amino Transferase 31 U/L (5-31); Blood Urea Nitrogen 19 mg/dL (9-16); Calcium 9.4 mg/dL (8.4-10.2); Carbon Dioxide 28 mmol/L (22-29); Chloride 103 mmol/L (96-108); Cholesterol 178 mg/dL (<200); Creatinine Clr Calc Pharmacy 50.8; Estimated Glomerular Filt Rate 46; HDL Cholesterol 33 mg/dL (>40); Potassium 3.5 mmol/L (3.3-5.1); Sodium 141 mmol/L (135-145); Total Protein 7.3 g/dL (6.5-8.0); Triglycerides 255 mg/dL (<150)
[2025-01-20 20:00] VITALS: BP 116/60; PULSE 59; RESP 16; TEMP 36.8; O2SAT 94
[2025-01-21 07:00] VITALS: BMI 35.6
[2025-01-21 08:00] VITALS: BP 136/64; PULSE 57; RESP 18; TEMP 36.3; O2SAT 95
[2025-01-21 08:12] VITALS: BP 136/64
[2025-01-21 08:13] VITALS: BP 136/64; PULSE 57
[2025-01-21] MEDS: Metoprolol Succinate ER 100 MG TAB.ER.24H PO (08:13)
[2025-01-21 08:14] VITALS: BP 136/64
--- NOTE | 2025-01-21 14:27 | P.PNPSI_ITS ---
Subjective Subjective Date of Service: 01/21/25 Reason For Visit: crisis Subjective Notes: Conditional Voluntary Interim History: Keeping to self. Patient continues to report feeling depressed but states she is a little better because I'm not thinking of everything in the outside . denies any side effects from medication changes. denies SI/HI/VH/AH. Encouraged to attend groups. Continue current tx plan. Medication Compliance: Yes Side effects from medications: No Attending Groups: No Mental Status Exam Mental Status Exam Narrative: Pt is alert and oriented; behavior is cooperative and calm; dressed in casual attire; mood is described as depressed ; eye contact appropriate; Speech is normal rate, volume and not pressured; thought process is organized; Thought content is on tx; denies SI/HI/VH/AH. Diagnostics Vital Signs (24Hr): Vital Signs - 24 hr 01/20/25 20:00 01/21/25 08:00 01/21/25 08:12 Temperature 98.3 F 97.4 F Pulse Rate 59 57 Respiratory Rate 16 18 Blood Pressure 116/60 136/64 136/64 Pulse Oximetry 94 95 Oxygen Delivery Method Room Air Room Air 01/21/25 08:13 01/21/25 08:13 01/21/25 08:14 Temperature Pulse Rate 57 Respiratory Rate Blood Pressure 136/64 136/64 136/64 Pulse Oximetry Oxygen Delivery Method BMI result Body Mass Index 35.6 Labs 01/18/25 16:26 01/20/25 08:09 Labs: Laboratory Results - last 48 hr 01/20/25 01/20/25 08:09 08:10 Sodium 141 Potassium 3.5 Chloride 103 Carbon Dioxide 28 Anion Gap 14 BUN 19 H Creatinine 1.18 Estim Creat Clear Calc 50.8 Estimated GFR 46 Random Glucose 144 H Estimat Average Glucose 140 Hemoglobin A1c % 6.5 H Calcium 9.4 Total Bilirubin 0.2 AST 31 ALT 18 Alkaline Phosphatase 72 Total Protein 7.3 Albumin 4.2 Triglycerides 255 H Cholesterol 178 LDL Cholesterol, Calc 94 HDL Cholesterol 33 L Medications Medications Current Medications Acetaminophen (Acetaminophen 325 Mg Tablet) 650 mg PO Q6H PRN PRN Reason: Headache/Pain, Scale 1-10 Last Admin: 01/20/25 12:50 Dose: 650 mg Al Hydroxide/Mg Hydroxide (Magnesium Hydrox/Alum Hydrox 30 Ml Oral.Susp) 30 ml PO Q6H PRN PRN Reason: Heartburn/Nausea Amlodipine Besylate (Amlodipine Besylate 10 Mg Tablet) 10 mg PO DAILY [facility]; Protocol Last Admin: 01/21/25 08:12 Dose: 10 mg Atorvastatin Calcium (Atorvastatin Calcium 80 Mg Tablet) 80 mg PO DAILY [facility] Last Admin: 01/21/25 08:11 Dose: 80 mg Cyanocobalamin (Cyanocobalamin (Vitamin B-12) 1,000 Mcg Tablet) 1,000 mcg PO DAILY [facility] Last Admin: 01/21/25 08:14 Dose: 1,000 mcg Hydrochlorothiazide (Hydrochlorothiazide 25 Mg Tablet) 25 mg PO DAILY [facility] Last Admin: 01/21/25 08:14 Dose: 25 mg Hydroxyzine HCl (Hydroxyzine Hcl 25 Mg Tablet) 25 mg PO Q6H PRN PRN Reason: mild anxiety Last Admin: 01/20/25 23:57 Dose: 25 mg [place] Carbonate ([place] Carbonate Er 450 Mg Tablet.Er) 450 mg PO BEDTIME [facility] Last Admin: 01/20/25 20:52 Dose: 450 mg Loratadine (Loratadine 10 Mg Tablet) 10 mg PO DAILY [facility] Last Admin: 01/21/25 08:11 Dose: 10 mg Lorazepam (Lorazepam 1 Mg Tablet) 1 mg PO TID [facility] Last Admin: 01/21/25 14:05 Dose: 1 mg Losartan Potassium (Losartan Potassium 50 Mg Tablet) 100 mg PO DAILY [facility] Last Admin: 01/21/25 08:13 Dose: 100 mg Magnesium Hydroxide (Milk Of Magnesia 30 Ml Oral.Susp) 30 ml PO DAILY PRN PRN Reason: Constipation Metoprolol Succinate (Metoprolol Succinate Er 100 Mg Tab.Er.24h) 100 mg PO DAILY [facility]; Protocol Last Admin: 01/21/25 08:13 Dose: 100 mg Naproxen (Naproxen 500 Mg Tablet) 500 mg PO BID [facility] Last Admin: 01/21/25 08:14 Dose: 500 mg Nicotine Polacrilex (Nicotine Polacrilex 2 Mg Gum) 4 mg BUCCAL Q2H PRN PRN Reason: Nicotine Cravings Non-Formulary Medication (Vibegron [Gemtesa]) 75 mg PO DAILY [facility] Trazodone HCl (Trazodone Hcl 100 Mg Tablet) 300 mg PO BEDTIME [facility] Last Admin: 01/20/25 20:53 Dose: 300 mg Trazodone HCl (Trazodone Hcl 100 Mg Tablet) 100 mg PO BEDTIME PRN PRN Reason: continued insomnia Last Admin: 01/20/25 23:57 Dose: 100 mg Vilazodone HCl (Vilazodone Hcl 40 Mg Tablet) 40 mg PO DAILY [facility] Last Admin: 01/21/25 08:12 Dose: 40 mg Vitamin D (Cholecalciferol (Vitamin D3) 25 Mcg Tablet) 50 mcg PO DAILY [facility] Last Admin: 01/21/25 08:13 Dose: 50 mcg Allergies Allergies Allergy/AdvReac Type Severity Reaction Status Date / Time TRUMAN Inhibitors AdvReac Cough Verified 01/18/25 15:34 Assessment & Plan Assessment & Plan (1) Major depressive disorder, recurrent severe without psychotic features: Status: Acute Code(s): F33.2 - Major depressive disorder, recurrent severe without psychotic features (2) Chronic post-traumatic stress disorder (PTSD): Status: Acute Code(s): F43.12 - Post-traumatic stress disorder, chronic Plan Patient is a 58 year old female with history of MDD and PTSD who presented to ER which is feelings of losing control and not being able to function secondary to increased depression and anxiety. Plan: CV 15 minute safety checks Continue home medications decrease Viibryd to 40 mg p.o. daily Start: lithium ER 450 mg p.o. bedtime Obtain collateral Encourage groups ? TMS/consider mood stabilizer Discharge planning 01/21: Keeping to self. Patient continues to report feeling depressed but states she is a little better because I'm not thinking of everything in the outside . denies any side effects from medication changes. denies SI/HI/VH/AH. Encouraged to attend groups. Continue current tx plan. Patient educated on: diagnosis, medication risk/benefits and therapeutic strategies Reason for continued inpatient stay Substantial Risk for: med/psych decompensation Time Spent With Patient Time: Total time managing care of this patient today _20___ minutes.
[2025-01-21 19:24] VITALS: BP 129/62; PULSE 61; RESP 16; TEMP 36.4; O2SAT 94
[2025-01-22 07:30] VITALS: BP 132/63; PULSE 67; RESP 14; TEMP 36.7; O2SAT 93
[2025-01-22] MEDS: Metoprolol Succinate ER 100 MG TAB.ER.24H PO (08:24)
--- NOTE | 2025-01-22 08:47 | P.PNPSI_ITS ---
Subjective Subjective Date of Service: 01/22/25 Reason For Visit: crisis Subjective Notes: Conditional Voluntary Interim History: Out of bed at times. Napping. Patient reports feeling good today; pt stated, I'm not feeling anxious or depressed today. I didn't sleep well last night so I'm napping today . Per nursing report, pt was active on unit and social last evening. denies SI/HI/VH/AH. Continue current tx plan. Medication Compliance: Yes Side effects from medications: No Attending Groups: No Mental Status Exam Mental Status Exam Narrative: Pt is alert and oriented; behavior is cooperative and calm; dressed in casual attire; mood is described as okay ; eye contact appropriate; Speech is normal rate, volume and not pressured; thought process is organized; Thought content is on tx; denies SI/HI/VH/AH. Diagnostics Vital Signs (24Hr): Vital Signs - 24 hr 01/21/25 19:24 01/22/25 07:30 Temperature 97.5 F 98.1 F Pulse Rate 61 67 Respiratory Rate 16 14 Blood Pressure 129/62 132/63 Pulse Oximetry 94 93 Oxygen Delivery Method Room Air Room Air BMI result Body Mass Index 35.6 Labs 01/18/25 16:26 01/20/25 08:09 Labs: Laboratory Results - last 48 hr 01/20/25 01/20/25 08:09 08:10 Sodium 141 Potassium 3.5 Chloride 103 Carbon Dioxide 28 Anion Gap 14 BUN 19 H Creatinine 1.18 Estim Creat Clear Calc 50.8 Estimated GFR 46 Random Glucose 144 H Estimat Average Glucose 140 Hemoglobin A1c % 6.5 H Calcium 9.4 Total Bilirubin 0.2 AST 31 ALT 18 Alkaline Phosphatase 72 Total Protein 7.3 Albumin 4.2 Triglycerides 255 H Cholesterol 178 LDL Cholesterol, Calc 94 HDL Cholesterol 33 L Medications Medications Current Medications Acetaminophen (Acetaminophen 325 Mg Tablet) 650 mg PO Q6H PRN PRN Reason: Headache/Pain, Scale 1-10 Last Admin: 01/20/25 12:50 Dose: 650 mg Al Hydroxide/Mg Hydroxide (Magnesium Hydrox/Alum Hydrox 30 Ml Oral.Susp) 30 ml PO Q6H PRN PRN Reason: Heartburn/Nausea Amlodipine Besylate (Amlodipine Besylate 10 Mg Tablet) 10 mg PO DAILY [facility]; Protocol Last Admin: 01/22/25 08:25 Dose: 10 mg Atorvastatin Calcium (Atorvastatin Calcium 80 Mg Tablet) 80 mg PO DAILY [facility] Last Admin: 01/22/25 08:25 Dose: 80 mg Cyanocobalamin (Cyanocobalamin (Vitamin B-12) 1,000 Mcg Tablet) 1,000 mcg PO DAILY [facility] Last Admin: 01/22/25 08:23 Dose: 1,000 mcg Hydrochlorothiazide (Hydrochlorothiazide 25 Mg Tablet) 25 mg PO DAILY [facility] Last Admin: 01/22/25 08:24 Dose: 25 mg Hydroxyzine HCl (Hydroxyzine Hcl 25 Mg Tablet) 25 mg PO Q6H PRN PRN Reason: mild anxiety Last Admin: 01/22/25 00:17 Dose: 25 mg [place] Carbonate ([place] Carbonate Er 450 Mg Tablet.Er) 450 mg PO BEDTIME [facility] Last Admin: 01/21/25 21:47 Dose: 450 mg Loratadine (Loratadine 10 Mg Tablet) 10 mg PO DAILY [facility] Last Admin: 01/22/25 08:24 Dose: 10 mg Lorazepam (Lorazepam 1 Mg Tablet) 1 mg PO TID [facility] Last Admin: 01/22/25 08:25 Dose: 1 mg Losartan Potassium (Losartan Potassium 50 Mg Tablet) 100 mg PO DAILY [facility] Last Admin: 01/22/25 08:23 Dose: 100 mg Magnesium Hydroxide (Milk Of Magnesia 30 Ml Oral.Susp) 30 ml PO DAILY PRN PRN Reason: Constipation Metoprolol Succinate (Metoprolol Succinate Er 100 Mg Tab.Er.24h) 100 mg PO DAILY [facility]; Protocol Last Admin: 01/22/25 08:24 Dose: 100 mg Naproxen (Naproxen 500 Mg Tablet) 500 mg PO BID [facility] Last Admin: 01/22/25 08:24 Dose: 500 mg Nicotine Polacrilex (Nicotine Polacrilex 2 Mg Gum) 4 mg BUCCAL Q2H PRN PRN Reason: Nicotine Cravings Non-Formulary Medication (Vibegron [Gemtesa]) 75 mg PO DAILY [facility] Trazodone HCl (Trazodone Hcl 100 Mg Tablet) 300 mg PO BEDTIME [facility] Last Admin: 01/21/25 21:48 Dose: 300 mg Trazodone HCl (Trazodone Hcl 100 Mg Tablet) 100 mg PO BEDTIME PRN PRN Reason: continued insomnia Last Admin: 01/21/25 21:49 Dose: 100 mg Vilazodone HCl (Vilazodone Hcl 40 Mg Tablet) 40 mg PO DAILY [facility] Last Admin: 01/22/25 08:24 Dose: 40 mg Vitamin D (Cholecalciferol (Vitamin D3) 25 Mcg Tablet) 50 mcg PO DAILY [facility] Last Admin: 01/22/25 08:23 Dose: 50 mcg Allergies Allergies Allergy/AdvReac Type Severity Reaction Status Date / Time TRUMAN Inhibitors AdvReac Cough Verified 01/18/25 15:34 Assessment & Plan Assessment & Plan (1) Major depressive disorder, recurrent severe without psychotic features: Status: Acute Code(s): F33.2 - Major depressive disorder, recurrent severe without psychotic features (2) Chronic post-traumatic stress disorder (PTSD): Status: Acute Code(s): F43.12 - Post-traumatic stress disorder, chronic Plan Patient is a 58 year old female with history of MDD and PTSD who presented to ER which is feelings of losing control and not being able to function secondary to increased depression and anxiety. Plan: CV 15 minute safety checks Continue home medications decrease Viibryd to 40 mg p.o. daily Start: lithium ER 450 mg p.o. bedtime Obtain collateral Encourage groups ? TMS/consider mood stabilizer Discharge planning 01/21: Keeping to self. Patient continues to report feeling depressed but states she is a little better because I'm not thinking of everything in the outside . denies any side effects from medication changes. denies SI/HI/VH/AH. Encouraged to attend groups. Continue current tx plan. 01/22: Out of bed at times. Napping. Patient reports feeling good today; pt stated, I'm not feeling anxious or depressed today. I didn't sleep well last night so I'm napping today . Per nursing report, pt was active on unit and social last evening. denies SI/HI/VH/AH. Continue current tx plan. Patient educated on: diagnosis, medication risk/benefits and therapeutic strategies Reason for continued inpatient stay Substantial Risk for: med/psych decompensation Time Spent With Patient Time: Total time managing care of this patient today _20___ minutes.
[2025-01-22 19:30] VITALS: BP 131/65; PULSE 66; RESP 16; TEMP 36.6; O2SAT 92
[2025-01-23 07:36] VITALS: BP 138/68; PULSE 59; RESP 14; TEMP 36.6; O2SAT 95
[2025-01-23 08:35] VITALS: PULSE 62
[2025-01-23] MEDS: Metoprolol Succinate ER 100 MG TAB.ER.24H PO (08:35)
[2025-01-23 08:36] VITALS: BP 138/68
[2025-01-23 08:37] VITALS: BP 138/68
--- NOTE | 2025-01-23 14:25 | P.PNPSI_ITS ---
Subjective Subjective Date of Service: 01/23/25 Reason For Visit: crisis Subjective Notes: Conditional Voluntary Interim History: Patient continues to report feeling good; pt stated, I feel calm. I'm going to try to get out of bed and go to groups today . denies SI/HI/VH/AH. Continue current tx plan. Medication Compliance: Yes Side effects from medications: No Attending Groups: No Mental Status Exam Mental Status Exam Narrative: Pt is alert and oriented; behavior is cooperative and calm; dressed in casual attire; mood is described as calm ; eye contact appropriate; Speech is normal rate, volume and not pressured; thought process is organized; Thought content is on tx; denies SI/HI/VH/AH. Diagnostics Vital Signs (24Hr): Vital Signs - 24 hr 01/22/25 19:30 01/23/25 07:36 01/23/25 08:35 Temperature 97.8 F 97.8 F Pulse Rate 66 59 62 Respiratory Rate 16 14 Blood Pressure 131/65 138/68 Pulse Oximetry 92 95 Oxygen Delivery Method Room Air Room Air 01/23/25 08:36 01/23/25 08:37 Temperature Pulse Rate Respiratory Rate Blood Pressure 138/68 138/68 Pulse Oximetry Oxygen Delivery Method BMI result Body Mass Index 35.6 Labs 01/18/25 16:26 01/20/25 08:09 Medications Medications Current Medications Acetaminophen (Acetaminophen 325 Mg Tablet) 650 mg PO Q6H PRN PRN Reason: Headache/Pain, Scale 1-10 Last Admin: 01/20/25 12:50 Dose: 650 mg Al Hydroxide/Mg Hydroxide (Magnesium Hydrox/Alum Hydrox 30 Ml Oral.Susp) 30 ml PO Q6H PRN PRN Reason: Heartburn/Nausea Amlodipine Besylate (Amlodipine Besylate 10 Mg Tablet) 10 mg PO DAILY [facility]; Protocol Last Admin: 01/23/25 08:37 Dose: 10 mg Atorvastatin Calcium (Atorvastatin Calcium 80 Mg Tablet) 80 mg PO DAILY [facility] Last Admin: 01/23/25 08:36 Dose: 80 mg Cyanocobalamin (Cyanocobalamin (Vitamin B-12) 1,000 Mcg Tablet) 1,000 mcg PO DAILY [facility] Last Admin: 01/23/25 08:36 Dose: 1,000 mcg Hydrochlorothiazide (Hydrochlorothiazide 25 Mg Tablet) 25 mg PO DAILY [facility] Last Admin: 01/23/25 08:36 Dose: 25 mg Hydroxyzine HCl (Hydroxyzine Hcl 25 Mg Tablet) 25 mg PO Q6H PRN PRN Reason: mild anxiety Last Admin: 01/22/25 00:17 Dose: 25 mg [place] Carbonate ([place] Carbonate Er 450 Mg Tablet.Er) 450 mg PO BEDTIME [facility] Last Admin: 01/22/25 21:59 Dose: 450 mg Loratadine (Loratadine 10 Mg Tablet) 10 mg PO DAILY [facility] Last Admin: 01/23/25 08:36 Dose: 10 mg Lorazepam (Lorazepam 1 Mg Tablet) 1 mg PO TID [facility] Last Admin: 01/23/25 08:37 Dose: 1 mg Losartan Potassium (Losartan Potassium 50 Mg Tablet) 100 mg PO DAILY [facility] Last Admin: 01/23/25 08:35 Dose: 100 mg Magnesium Hydroxide (Milk Of Magnesia 30 Ml Oral.Susp) 30 ml PO DAILY PRN PRN Reason: Constipation Metoprolol Succinate (Metoprolol Succinate Er 100 Mg Tab.Er.24h) 100 mg PO DAILY [facility]; Protocol Last Admin: 01/23/25 08:35 Dose: 100 mg Naproxen (Naproxen 500 Mg Tablet) 500 mg PO BID [facility] Last Admin: 01/23/25 08:35 Dose: 500 mg Nicotine Polacrilex (Nicotine Polacrilex 2 Mg Gum) 4 mg BUCCAL Q2H PRN PRN Reason: Nicotine Cravings Non-Formulary Medication (Vibegron [Gemtesa]) 75 mg PO DAILY [facility] Trazodone HCl (Trazodone Hcl 100 Mg Tablet) 300 mg PO BEDTIME [facility] Last Admin: 01/22/25 21:58 Dose: 300 mg Trazodone HCl (Trazodone Hcl 100 Mg Tablet) 100 mg PO BEDTIME PRN PRN Reason: continued insomnia Last Admin: 01/22/25 21:58 Dose: 100 mg Vilazodone HCl (Vilazodone Hcl 40 Mg Tablet) 40 mg PO DAILY [facility] Last Admin: 01/23/25 08:36 Dose: 40 mg Vitamin D (Cholecalciferol (Vitamin D3) 25 Mcg Tablet) 50 mcg PO DAILY [facility] Last Admin: 01/23/25 08:35 Dose: 50 mcg Allergies Allergies Allergy/AdvReac Type Severity Reaction Status Date / Time TRUMAN Inhibitors AdvReac Cough Verified 01/18/25 15:34 Assessment & Plan Assessment & Plan (1) Major depressive disorder, recurrent severe without psychotic features: Status: Acute Code(s): F33.2 - Major depressive disorder, recurrent severe without psychotic features (2) Chronic post-traumatic stress disorder (PTSD): Status: Acute Code(s): F43.12 - Post-traumatic stress disorder, chronic Plan Patient is a 58 year old female with history of MDD and PTSD who presented to ER which is feelings of losing control and not being able to function secondary to increased depression and anxiety. Plan: CV 15 minute safety checks Continue home medications decrease Viibryd to 40 mg p.o. daily Start: lithium ER 450 mg p.o. bedtime Obtain collateral Encourage groups ? TMS/consider mood stabilizer Discharge planning 01/21: Keeping to self. Patient continues to report feeling depressed but states she is a little better because I'm not thinking of everything in the outside . denies any side effects from medication changes. denies SI/HI/VH/AH. Encouraged to attend groups. Continue current tx plan. 01/22: Out of bed at times. Napping. Patient reports feeling good today; pt stated, I'm not feeling anxious or depressed today. I didn't sleep well last night so I'm napping today . Per nursing report, pt was active on unit and social last evening. denies SI/HI/VH/AH. Continue current tx plan. 01/23: Patient continues to report feeling good; pt stated, I feel calm. I'm going to try to get out of bed and go to groups today . denies SI/HI/VH/AH. Continue current tx plan. Patient educated on: diagnosis, medication risk/benefits and therapeutic strategies Reason for continued inpatient stay Substantial Risk for: med/psych decompensation Time Spent With Patient Time: Total time managing care of this patient today _15___ minutes.
[2025-01-23 19:14] VITALS: BP 131/59; PULSE 55; RESP 18; TEMP 36.9; O2SAT 96
[2025-01-24 07:32] VITALS: BP 131/64; PULSE 58; RESP 14; TEMP 36.3; O2SAT 96
--- NOTE | 2025-01-24 08:28 | HO.PSYCHPN ---
Subjective Subjective Date of Service: 01/24/25 Reason For Visit: crisis Subjective Notes: Conditional Voluntary Interim History: Patient continues to report feeling good; pt stated, I feel like I would be ready to go home soon . [place] level ordered for tomorrow morning. denies SI/HI/VH/AH. Continue current tx plan. Medication Compliance: Yes Side effects from medications: No Attending Groups: No Mental Status Exam Mental Status Exam Narrative: Pt is alert and oriented; behavior is cooperative and calm; dressed in casual attire; mood is described as good ; eye contact appropriate; Speech is normal rate, volume and not pressured; thought process is organized; Thought content is on discharge; denies SI/HI/VH/AH. Diagnostics Vital Signs (24Hr): Vital Signs - 24 hr 01/23/25 08:35 01/23/25 08:36 01/23/25 08:37 Temperature Pulse Rate 62 Respiratory Rate Blood Pressure 138/68 138/68 Pulse Oximetry Oxygen Delivery Method 01/23/25 19:14 01/24/25 07:32 Temperature 98.4 F 97.4 F Pulse Rate 55 58 Respiratory Rate 18 14 Blood Pressure 131/59 L 131/64 Pulse Oximetry 96 96 Oxygen Delivery Method Room Air Room Air BMI result Body Mass Index 35.6 Labs 01/18/25 16:26 01/20/25 08:09 Medications Medications Current Medications Acetaminophen (Acetaminophen 325 Mg Tablet) 650 mg PO Q6H PRN PRN Reason: Headache/Pain, Scale 1-10 Last Admin: 01/20/25 12:50 Dose: 650 mg Al Hydroxide/Mg Hydroxide (Magnesium Hydrox/Alum Hydrox 30 Ml Oral.Susp) 30 ml PO Q6H PRN PRN Reason: Heartburn/Nausea Amlodipine Besylate (Amlodipine Besylate 10 Mg Tablet) 10 mg PO DAILY [facility]; Protocol Last Admin: 01/23/25 08:37 Dose: 10 mg Atorvastatin Calcium (Atorvastatin Calcium 80 Mg Tablet) 80 mg PO DAILY [facility] Last Admin: 01/23/25 08:36 Dose: 80 mg Cyanocobalamin (Cyanocobalamin (Vitamin B-12) 1,000 Mcg Tablet) 1,000 mcg PO DAILY [facility] Last Admin: 01/23/25 08:36 Dose: 1,000 mcg Hydrochlorothiazide (Hydrochlorothiazide 25 Mg Tablet) 25 mg PO DAILY [facility] Last Admin: 08/30/25 08:36 Dose: 25 mg Hydroxyzine HCl (Hydroxyzine Hcl 25 Mg Tablet) 25 mg PO Q6H PRN PRN Reason: mild anxiety Last Admin: 01/24/25 02:57 Dose: 25 mg [place] Carbonate ([place] Carbonate Er 450 Mg Tablet.Er) 450 mg PO BEDTIME [facility] Last Admin: 01/23/25 21:20 Dose: 450 mg Loratadine (Loratadine 10 Mg Tablet) 10 mg PO DAILY [facility] Last Admin: 01/23/25 08:36 Dose: 10 mg Lorazepam (Lorazepam 1 Mg Tablet) 1 mg PO TID [facility] Last Admin: 01/23/25 21:20 Dose: 1 mg Losartan Potassium (Losartan Potassium 50 Mg Tablet) 100 mg PO DAILY [facility] Last Admin: 01/23/25 08:35 Dose: 100 mg Magnesium Hydroxide (Milk Of Magnesia 30 Ml Oral.Susp) 30 ml PO DAILY PRN PRN Reason: Constipation Metoprolol Succinate (Metoprolol Succinate Er 100 Mg Tab.Er.24h) 100 mg PO DAILY [facility]; Protocol Last Admin: 01/23/25 08:35 Dose: 100 mg Naproxen (Naproxen 500 Mg Tablet) 500 mg PO BID [facility] Last Admin: 01/23/25 21:22 Dose: Not Given Nicotine Polacrilex (Nicotine Polacrilex 2 Mg Gum) 4 mg BUCCAL Q2H PRN PRN Reason: Nicotine Cravings Non-Formulary Medication (Vibegron [Gemtesa]) 75 mg PO DAILY [facility] Trazodone HCl (Trazodone Hcl 100 Mg Tablet) 300 mg PO BEDTIME [facility] Last Admin: 01/23/25 21:20 Dose: 300 mg Trazodone HCl (Trazodone Hcl 100 Mg Tablet) 100 mg PO BEDTIME PRN PRN Reason: continued insomnia Last Admin: 01/23/25 21:20 Dose: 100 mg Vilazodone HCl (Vilazodone Hcl 40 Mg Tablet) 40 mg PO DAILY [facility] Last Admin: 01/23/25 08:36 Dose: 40 mg Vitamin D (Cholecalciferol (Vitamin D3) 25 Mcg Tablet) 50 mcg PO DAILY [facility] Last Admin: 01/23/25 08:35 Dose: 50 mcg Allergies Allergies Allergy/AdvReac Type Severity Reaction Status Date / Time TRUMAN Inhibitors AdvReac Cough Verified 01/18/25 15:34 Assessment & Plan Assessment & Plan (1) Major depressive disorder, recurrent severe without psychotic features: Status: Acute Code(s): F33.2 - Major depressive disorder, recurrent severe without psychotic features (2) Chronic post-traumatic stress disorder (PTSD): Status: Acute Code(s): F43.12 - Post-traumatic stress disorder, chronic Plan Patient is a 58 year old female with history of MDD and PTSD who presented to ER which is feelings of losing control and not being able to function secondary to increased depression and anxiety. Plan: CV 15 minute safety checks Continue home medications decrease Viibryd to 40 mg p.o. daily Start: lithium ER 450 mg p.o. bedtime Obtain collateral Encourage groups ? TMS/consider mood stabilizer Discharge planning 01/21: Keeping to self. Patient continues to report feeling depressed but states she is a little better because I'm not thinking of everything in the outside . denies any side effects from medication changes. denies SI/HI/VH/AH. Encouraged to attend groups. Continue current tx plan. 01/22: Out of bed at times. Napping. Patient reports feeling good today; pt stated, I'm not feeling anxious or depressed today. I didn't sleep well last night so I'm napping today . Per nursing report, pt was active on unit and social last evening. denies SI/HI/VH/AH. Continue current tx plan. 01/23: Patient continues to report feeling good; pt stated, I feel calm. I'm going to try to get out of bed and go to groups today . denies SI/HI/VH/AH. Continue current tx plan. 01/24: Patient continues to report feeling good; pt stated, I feel like I would be ready to go home soon . [place] level ordered for tomorrow morning. denies SI/HI/VH/AH. Continue current tx plan. Patient educated on: diagnosis, medication risk/benefits and therapeutic strategies Reason for continued inpatient stay Substantial Risk for: med/psych decompensation Time Spent With Patient Time: Total time managing care of this patient today _20___ minutes.
[2025-01-24 08:36] VITALS: BP 131/64
[2025-01-24 08:37] VITALS: PULSE 64
[2025-01-24] MEDS: Metoprolol Succinate ER 100 MG TAB.ER.24H PO (08:37)
[2025-01-24 19:16] VITALS: BP 124/61; PULSE 62; RESP 18; TEMP 36.6; O2SAT 95
[2025-01-25 07:10] VITALS: BP 147/62; PULSE 55; RESP 16; TEMP 36.7; O2SAT 95
[2025-01-25 08:10] VITALS: BP 147/62
[2025-01-25 08:12] VITALS: PULSE 55
[2025-01-25] MEDS: Metoprolol Succinate ER 100 MG TAB.ER.24H PO (08:12)
[2025-01-25 08:37] LABS: Lithium 0.59 mmol/L (0.60-1.20)
[2025-01-25 08:46] LABS: Anion Gap 12 (12-20); Blood Urea Nitrogen 17 mg/dL (9-16); Carbon Dioxide 31 mmol/L (22-29); Chloride 105 mmol/L (96-108); Creatinine Clr Calc Pharmacy 55.7; Estimated Glomerular Filt Rate 50; Potassium 4.0 mmol/L (3.3-5.1); Sodium 144 mmol/L (135-145)
--- NOTE | 2025-01-25 13:12 | P.PNPSI_ITS ---
Subjective Subjective Date of Service: 01/25/25 Reason For Visit: crisis Subjective Notes: Conditional Voluntary Interim History: Active on unit. attended some groups. Patient report feeling okay but a little depressed; lithium level 0.59 on 01/25/25. Encouraged to socialize with peers. denies SI/HI/VH/AH. Continue current tx plan. Medication Compliance: Yes Side effects from medications: No Attending Groups: Intermittent Mental Status Exam Mental Status Exam Narrative: Pt is alert and oriented; behavior is cooperative and calm; dressed in casual attire; mood is described as good ; eye contact appropriate; Speech is normal rate, volume and not pressured; thought process is organized; Thought content is on discharge; denies SI/HI/VH/AH. Diagnostics Vital Signs (24Hr): Vital Signs - 24 hr 01/24/25 19:16 01/25/25 07:10 01/25/25 08:10 Temperature 97.9 F 98.0 F Pulse Rate 62 55 Respiratory Rate 18 16 Blood Pressure 124/61 147/62 H 147/62 H Pulse Oximetry 95 95 Oxygen Delivery Method Room Air Room Air 01/25/25 08:12 Temperature Pulse Rate 55 Respiratory Rate Blood Pressure Pulse Oximetry Oxygen Delivery Method BMI result Body Mass Index 35.6 Labs 01/18/25 16:26 01/25/25 07:52 Labs: Laboratory Results - last 48 hr 01/25/25 07:52 Sodium 144 Potassium 4.0 Chloride 105 Carbon Dioxide 31 H Anion Gap 12 BUN 17 H Creatinine 1.09 Estim Creat Clear Calc 55.7 Estimated GFR 50 [place] 0.59 L Medications Medications Current Medications Acetaminophen (Acetaminophen 325 Mg Tablet) 650 mg PO Q6H PRN PRN Reason: Headache/Pain, Scale 1-10 Last Admin: 01/20/25 12:50 Dose: 650 mg Al Hydroxide/Mg Hydroxide (Magnesium Hydrox/Alum Hydrox 30 Ml Oral.Susp) 30 ml PO Q6H PRN PRN Reason: Heartburn/Nausea Amlodipine Besylate (Amlodipine Besylate 10 Mg Tablet) 10 mg PO DAILY [facility]; Protocol Last Admin: 01/25/25 08:10 Dose: 10 mg Atorvastatin Calcium (Atorvastatin Calcium 80 Mg Tablet) 80 mg PO DAILY [facility] Last Admin: 01/25/25 08:10 Dose: 80 mg Cyanocobalamin (Cyanocobalamin (Vitamin B-12) 1,000 Mcg Tablet) 1,000 mcg PO DAILY [facility] Last Admin: 01/25/25 08:12 Dose: 1,000 mcg Hydrochlorothiazide (Hydrochlorothiazide 25 Mg Tablet) 25 mg PO DAILY [facility] Last Admin: 01/25/25 08:11 Dose: 25 mg Hydroxyzine HCl (Hydroxyzine Hcl 25 Mg Tablet) 25 mg PO Q6H PRN PRN Reason: mild anxiety Last Admin: 01/25/25 00:21 Dose: 25 mg [place] Carbonate ([place] Carbonate Er 450 Mg Tablet.Er) 450 mg PO BEDTIME [facility] Last Admin: 01/24/25 21:35 Dose: 450 mg Loratadine (Loratadine 10 Mg Tablet) 10 mg PO DAILY [facility] Last Admin: 01/25/25 08:10 Dose: 10 mg Lorazepam (Lorazepam 1 Mg Tablet) 1 mg PO TID [facility] Last Admin: 01/25/25 08:10 Dose: 1 mg Losartan Potassium (Losartan Potassium 50 Mg Tablet) 100 mg PO DAILY [facility] Last Admin: 01/25/25 08:12 Dose: 100 mg Magnesium Hydroxide (Milk Of Magnesia 30 Ml Oral.Susp) 30 ml PO DAILY PRN PRN Reason: Constipation Metoprolol Succinate (Metoprolol Succinate Er 100 Mg Tab.Er.24h) 100 mg PO DAILY [facility]; Protocol Last Admin: 01/25/25 08:12 Dose: 100 mg Naproxen (Naproxen 500 Mg Tablet) 500 mg PO BID [facility] Last Admin: 01/25/25 08:11 Dose: 500 mg Nicotine Polacrilex (Nicotine Polacrilex 2 Mg Gum) 4 mg BUCCAL Q2H PRN PRN Reason: Nicotine Cravings Trazodone HCl (Trazodone Hcl 100 Mg Tablet) 300 mg PO BEDTIME [facility] Last Admin: 01/24/25 21:34 Dose: 300 mg Trazodone HCl (Trazodone Hcl 100 Mg Tablet) 100 mg PO BEDTIME PRN PRN Reason: continued insomnia Last Admin: 01/24/25 21:34 Dose: 100 mg Vilazodone HCl (Vilazodone Hcl 40 Mg Tablet) 40 mg PO DAILY [facility] Last Admin: 01/25/25 08:11 Dose: 40 mg Vitamin D (Cholecalciferol (Vitamin D3) 25 Mcg Tablet) 50 mcg PO DAILY [facility] Last Admin: 01/25/25 08:11 Dose: 50 mcg Allergies Allergies Allergy/AdvReac Type Severity Reaction Status Date / Time TRUMAN Inhibitors AdvReac Cough Verified 01/18/25 15:34 Assessment & Plan Assessment & Plan (1) Major depressive disorder, recurrent severe without psychotic features: Status: Acute Code(s): F33.2 - Major depressive disorder, recurrent severe without psychotic features (2) Chronic post-traumatic stress disorder (PTSD): Status: Acute Code(s): F43.12 - Post-traumatic stress disorder, chronic Plan Patient is a 58 year old female with history of MDD and PTSD who presented to ER which is feelings of losing control and not being able to function secondary to increased depression and anxiety. Plan: CV 15 minute safety checks Continue home medications decrease Viibryd to 40 mg p.o. daily Start: lithium ER 450 mg p.o. bedtime Obtain collateral Encourage groups ? TMS/consider mood stabilizer Discharge planning 01/21: Keeping to self. Patient continues to report feeling depressed but states she is a little better because I'm not thinking of everything in the outside . denies any side effects from medication changes. denies SI/HI/VH/AH. Encouraged to attend groups. Continue current tx plan. 01/22: Out of bed at times. Napping. Patient reports feeling good today; pt stated, I'm not feeling anxious or depressed today. I didn't sleep well last night so I'm napping today . Per nursing report, pt was active on unit and social last evening. denies SI/HI/VH/AH. Continue current tx plan. 01/23: Patient continues to report feeling good; pt stated, I feel calm. I'm going to try to get out of bed and go to groups today . denies SI/HI/VH/AH. Continue current tx plan. 01/24: Patient continues to report feeling good; pt stated, I feel like I would be ready to go home soon . [place] level ordered for tomorrow morning. denies SI/HI/VH/AH. Continue current tx plan. 01/25: Active on unit. attended some groups. Patient report feeling okay but a little depressed; lithium level 0.59 on 01/25/25. Encouraged to socialize with peers. denies SI/HI/VH/AH. Continue current tx plan. Patient educated on: diagnosis, medication risk/benefits and therapeutic strategies Reason for continued inpatient stay Substantial Risk for: med/psych decompensation Time Spent With Patient Time: Total time managing care of this patient today _20___ minutes.
[2025-01-25 20:00] VITALS: BP 122/57; PULSE 51; RESP 16; TEMP 36.9; O2SAT 93
[2025-01-26 07:28] VITALS: BP 134/64; PULSE 65; RESP 18; TEMP 36.3; O2SAT 96
[2025-01-26 08:36] VITALS: BP 134/64
[2025-01-26 08:38] VITALS: BP 134/64; PULSE 65
[2025-01-26] MEDS: Metoprolol Succinate ER 100 MG TAB.ER.24H PO (08:38)
[2025-01-26 08:39] VITALS: BP 134/64
[2025-01-26 08:40] VITALS: BP 134/64
--- NOTE | 2025-01-26 10:47 | HO.PSYCHPN ---
Subjective Subjective Date of Service: 01/26/25 Reason For Visit: crisis Subjective Notes: Conditional Voluntary Interim History: Laying in bed. Patient reports she doesn't know how I feel. I need someone to teach me how to cope with stress ; pt encouraged to attend groups rather than laying in bed. [place] ER increased to 600mg PO bedtime. denies SI/HI/VH/AH. Continue current tx plan. Medication Compliance: Yes Side effects from medications: No Attending Groups: No Mental Status Exam Mental Status Exam Narrative: Pt is alert and oriented; behavior is cooperative and calm; dressed in casual attire; mood is described as depressed ; eye contact appropriate; Speech is normal rate, volume and not pressured; thought process is organized; Thought content is on discharge; denies SI/HI/VH/AH. Diagnostics Vital Signs (24Hr): Vital Signs - 24 hr 01/25/25 20:00 01/26/25 07:28 01/26/25 08:36 Temperature 98.4 F 97.4 F Pulse Rate 51 65 Respiratory Rate 16 18 Blood Pressure 122/57 L 134/64 134/64 Pulse Oximetry 93 96 Oxygen Delivery Method Room Air Room Air 01/26/25 08:38 01/26/25 08:39 01/26/25 08:40 Temperature Pulse Rate 65 Respiratory Rate Blood Pressure 134/64 134/64 134/64 Pulse Oximetry Oxygen Delivery Method BMI result Body Mass Index 35.6 Labs 01/18/25 16:26 01/25/25 07:52 Labs: Laboratory Results - last 48 hr 01/25/25 07:52 Sodium 144 Potassium 4.0 Chloride 105 Carbon Dioxide 31 H Anion Gap 12 BUN 17 H Creatinine 1.09 Estim Creat Clear Calc 55.7 Estimated GFR 50 [place] 0.59 L Medications Medications Current Medications Acetaminophen (Acetaminophen 325 Mg Tablet) 650 mg PO Q6H PRN PRN Reason: Headache/Pain, Scale 1-10 Last Admin: 01/20/25 12:50 Dose: 650 mg Al Hydroxide/Mg Hydroxide (Magnesium Hydrox/Alum Hydrox 30 Ml Oral.Susp) 30 ml PO Q6H PRN PRN Reason: Heartburn/Nausea Amlodipine Besylate (Amlodipine Besylate 10 Mg Tablet) 10 mg PO DAILY [facility]; Protocol Last Admin: 01/26/25 08:39 Dose: 10 mg Atorvastatin Calcium (Atorvastatin Calcium 80 Mg Tablet) 80 mg PO DAILY [facility] Last Admin: 01/26/25 08:37 Dose: 80 mg Cyanocobalamin (Cyanocobalamin (Vitamin B-12) 1,000 Mcg Tablet) 1,000 mcg PO DAILY [facility] Last Admin: 01/26/25 08:39 Dose: 1,000 mcg Hydrochlorothiazide (Hydrochlorothiazide 25 Mg Tablet) 25 mg PO DAILY [facility] Last Admin: 01/26/25 08:36 Dose: 25 mg Hydroxyzine HCl (Hydroxyzine Hcl 25 Mg Tablet) 25 mg PO Q6H PRN PRN Reason: mild anxiety Last Admin: 01/25/25 00:21 Dose: 25 mg [place] Carbonate ([place] Carbonate Er 300 Mg Tablet.Er) 600 mg PO BEDTIME [facility] Loratadine (Loratadine 10 Mg Tablet) 10 mg PO DAILY [facility] Last Admin: 01/26/25 08:37 Dose: 10 mg Lorazepam (Lorazepam 1 Mg Tablet) 1 mg PO TID [facility] Last Admin: 01/26/25 08:37 Dose: 1 mg Losartan Potassium (Losartan Potassium 50 Mg Tablet) 100 mg PO DAILY [facility] Last Admin: 01/26/25 08:40 Dose: 100 mg Magnesium Hydroxide (Milk Of Magnesia 30 Ml Oral.Susp) 30 ml PO DAILY PRN PRN Reason: Constipation Metoprolol Succinate (Metoprolol Succinate Er 100 Mg Tab.Er.24h) 100 mg PO DAILY [facility]; Protocol Last Admin: 01/26/25 08:38 Dose: 100 mg Naproxen (Naproxen 500 Mg Tablet) 500 mg PO BID [facility] Last Admin: 01/26/25 08:40 Dose: 500 mg Nicotine Polacrilex (Nicotine Polacrilex 2 Mg Gum) 4 mg BUCCAL Q2H PRN PRN Reason: Nicotine Cravings Trazodone HCl (Trazodone Hcl 100 Mg Tablet) 300 mg PO BEDTIME [facility] Last Admin: 01/25/25 21:59 Dose: 300 mg Trazodone HCl (Trazodone Hcl 100 Mg Tablet) 100 mg PO BEDTIME PRN PRN Reason: continued insomnia Last Admin: 01/25/25 21:59 Dose: 100 mg Vilazodone HCl (Vilazodone Hcl 40 Mg Tablet) 40 mg PO DAILY [facility] Last Admin: 01/26/25 08:36 Dose: 40 mg Vitamin D (Cholecalciferol (Vitamin D3) 25 Mcg Tablet) 50 mcg PO DAILY [facility] Last Admin: 01/26/25 08:38 Dose: 50 mcg Allergies Allergies Allergy/AdvReac Type Severity Reaction Status Date / Time TRUMAN Inhibitors AdvReac Cough Verified 01/18/25 15:34 Assessment & Plan Assessment & Plan (1) Major depressive disorder, recurrent severe without psychotic features: Status: Acute Code(s): F33.2 - Major depressive disorder, recurrent severe without psychotic features (2) Chronic post-traumatic stress disorder (PTSD): Status: Acute Code(s): F43.12 - Post-traumatic stress disorder, chronic Plan Patient is a 58 year old female with history of MDD and PTSD who presented to ER which is feelings of losing control and not being able to function secondary to increased depression and anxiety. Plan: CV 15 minute safety checks Continue home medications decrease Viibryd to 40 mg p.o. daily Start: lithium ER 450 mg p.o. bedtime Obtain collateral Encourage groups ? TMS/consider mood stabilizer Discharge planning 01/21: Keeping to self. Patient continues to report feeling depressed but states she is a little better because I'm not thinking of everything in the outside . denies any side effects from medication changes. denies SI/HI/VH/AH. Encouraged to attend groups. Continue current tx plan. 01/22: Out of bed at times. Napping. Patient reports feeling good today; pt stated, I'm not feeling anxious or depressed today. I didn't sleep well last night so I'm napping today . Per nursing report, pt was active on unit and social last evening. denies SI/HI/VH/AH. Continue current tx plan. 01/23: Patient continues to report feeling good; pt stated, I feel calm. I'm going to try to get out of bed and go to groups today . denies SI/HI/VH/AH. Continue current tx plan. 01/24: Patient continues to report feeling good; pt stated, I feel like I would be ready to go home soon . [place] level ordered for tomorrow morning. denies SI/HI/VH/AH. Continue current tx plan. 01/25: Active on unit. attended some groups. Patient report feeling okay but a little depressed; lithium level 0.59 on 01/25/25. Encouraged to socialize with peers. denies SI/HI/VH/AH. Continue current tx plan. 09/2: Laying in bed. Patient reports she doesn't know how I feel. I need someone to teach me how to cope with stress ; pt encouraged to attend groups rather than laying in bed. [place] ER increased to 600mg PO bedtime. denies SI/HI/VH/AH. Continue current tx plan. Patient educated on: diagnosis, medication risk/benefits and therapeutic strategies Reason for continued inpatient stay Substantial Risk for: med/psych decompensation Time Spent With Patient Time: Total time managing care of this patient today _20___ minutes.
[2025-01-26 20:00] VITALS: BP 125/58; PULSE 58; RESP 16; TEMP 36.8; O2SAT 96
[2025-01-27 07:10] VITALS: BP 123/58; PULSE 62; RESP 14; TEMP 36.4; O2SAT 94
[2025-01-27] MEDS: Metoprolol Succinate ER 100 MG TAB.ER.24H PO (08:08)
--- NOTE | 2025-01-27 14:08 | P.PNPSI_ITS ---
Subjective Subjective Date of Service: 01/27/25 Reason For Visit: crisis Subjective Notes: Conditional Voluntary Interim History: Active on unit. attending some groups. Patient reports she is feeling depressed and waiting for the medicine to help ; social with select peers. denies SI/HI/VH/AH. She reports sleeping well. Continue tx plan. Medication Compliance: Yes Side effects from medications: No Attending Groups: Intermittent Mental Status Exam Mental Status Exam Narrative: Pt is alert and oriented; behavior is cooperative and calm; dressed in casual attire; mood is described as depressed ; eye contact appropriate; Speech is normal rate, volume and not pressured; thought process is organized; Thought content is on tx; denies SI/HI/VH/AH. Diagnostics Vital Signs (24Hr): Vital Signs - 24 hr 01/26/25 20:00 01/27/25 07:10 Temperature 98.2 F 97.5 F Pulse Rate 58 62 Respiratory Rate 16 14 Blood Pressure 125/58 L 123/58 L Pulse Oximetry 96 94 Oxygen Delivery Method Room Air Room Air BMI result Body Mass Index 35.6 Labs 01/18/25 16:26 01/25/25 07:52 Medications Medications Current Medications Acetaminophen (Acetaminophen 325 Mg Tablet) 650 mg PO Q6H PRN PRN Reason: Headache/Pain, Scale 1-10 Last Admin: 01/20/25 12:50 Dose: 650 mg Al Hydroxide/Mg Hydroxide (Magnesium Hydrox/Alum Hydrox 30 Ml Oral.Susp) 30 ml PO Q6H PRN PRN Reason: Heartburn/Nausea Amlodipine Besylate (Amlodipine Besylate 10 Mg Tablet) 10 mg PO DAILY [facility]; Protocol Last Admin: 01/27/25 08:07 Dose: 10 mg Atorvastatin Calcium (Atorvastatin Calcium 80 Mg Tablet) 80 mg PO DAILY [facility] Last Admin: 01/27/25 08:09 Dose: 80 mg Cyanocobalamin (Cyanocobalamin (Vitamin B-12) 1,000 Mcg Tablet) 1,000 mcg PO DAILY [facility] Last Admin: 01/27/25 08:08 Dose: 1,000 mcg Hydrochlorothiazide (Hydrochlorothiazide 25 Mg Tablet) 25 mg PO DAILY [facility] Last Admin: 01/27/25 08:09 Dose: 25 mg Hydroxyzine HCl (Hydroxyzine Hcl 25 Mg Tablet) 25 mg PO Q6H PRN PRN Reason: mild anxiety Last Admin: 01/27/25 13:34 Dose: 25 mg [place] Carbonate ([place] Carbonate Er 300 Mg Tablet.Er) 600 mg PO BEDTIME [facility] Last Admin: 01/26/25 20:26 Dose: 600 mg Loratadine (Loratadine 10 Mg Tablet) 10 mg PO DAILY [facility] Last Admin: 01/27/25 08:08 Dose: 10 mg Lorazepam (Lorazepam 1 Mg Tablet) 1 mg PO TID [facility] Last Admin: 01/27/25 08:10 Dose: 1 mg Losartan Potassium (Losartan Potassium 50 Mg Tablet) 100 mg PO DAILY [facility] Last Admin: 01/27/25 08:08 Dose: 100 mg Magnesium Hydroxide (Milk Of Magnesia 30 Ml Oral.Susp) 30 ml PO DAILY PRN PRN Reason: Constipation Metoprolol Succinate (Metoprolol Succinate Er 100 Mg Tab.Er.24h) 100 mg PO DAILY [facility]; Protocol Last Admin: 01/27/25 08:08 Dose: 100 mg Naproxen (Naproxen 500 Mg Tablet) 500 mg PO BID [facility] Last Admin: 01/27/25 08:08 Dose: 500 mg Nicotine Polacrilex (Nicotine Polacrilex 2 Mg Gum) 4 mg BUCCAL Q2H PRN PRN Reason: Nicotine Cravings Trazodone HCl (Trazodone Hcl 100 Mg Tablet) 300 mg PO BEDTIME [facility] Last Admin: 01/26/25 20:27 Dose: 300 mg Trazodone HCl (Trazodone Hcl 100 Mg Tablet) 100 mg PO BEDTIME PRN PRN Reason: continued insomnia Last Admin: 01/26/25 20:28 Dose: 100 mg Vilazodone HCl (Vilazodone Hcl 40 Mg Tablet) 40 mg PO DAILY [facility] Last Admin: 01/27/25 08:12 Dose: 40 mg Vitamin D (Cholecalciferol (Vitamin D3) 25 Mcg Tablet) 50 mcg PO DAILY [facility] Last Admin: 01/27/25 08:10 Dose: 50 mcg Allergies Allergies Allergy/AdvReac Type Severity Reaction Status Date / Time TRUMAN Inhibitors AdvReac Cough Verified 01/18/25 15:34 Assessment & Plan Assessment & Plan (1) Major depressive disorder, recurrent severe without psychotic features: Status: Acute Code(s): F33.2 - Major depressive disorder, recurrent severe without psychotic features (2) Chronic post-traumatic stress disorder (PTSD): Status: Acute Code(s): F43.12 - Post-traumatic stress disorder, chronic Plan Patient is a 58 year old female with history of MDD and PTSD who presented to ER which is feelings of losing control and not being able to function secondary to increased depression and anxiety. Plan: CV 15 minute safety checks Continue home medications decrease Viibryd to 40 mg p.o. daily Start: lithium ER 450 mg p.o. bedtime Obtain collateral Encourage groups ? TMS/consider mood stabilizer Discharge planning 01/21: Keeping to self. Patient continues to report feeling depressed but states she is a little better because I'm not thinking of everything in the outside . denies any side effects from medication changes. denies SI/HI/VH/AH. Encouraged to attend groups. Continue current tx plan. 01/22: Out of bed at times. Napping. Patient reports feeling good today; pt stated, I'm not feeling anxious or depressed today. I didn't sleep well last night so I'm napping today . Per nursing report, pt was active on unit and social last evening. denies SI/HI/VH/AH. Continue current tx plan. 01/23: Patient continues to report feeling good; pt stated, I feel calm. I'm going to try to get out of bed and go to groups today . denies SI/HI/VH/AH. Continue current tx plan. 01/24: Patient continues to report feeling good; pt stated, I feel like I would be ready to go home soon . [place] level ordered for tomorrow morning. denies SI/HI/VH/AH. Continue current tx plan. 01/25: Active on unit. attended some groups. Patient report feeling okay but a little depressed; lithium level 0.59 on 01/25/25. Encouraged to socialize with peers. denies SI/HI/VH/AH. Continue current tx plan. 01/26: Laying in bed. Patient reports she doesn't know how I feel. I need someone to teach me how to cope with stress ; pt encouraged to attend groups rather than laying in bed. [place] ER increased to 600mg PO bedtime. denies SI/HI/VH/AH. Continue current tx plan. 01/27: Active on unit. attending some groups. Patient reports she is feeling depressed and waiting for the medicine to help ; social with select peers. denies SI/HI/VH/AH. She reports sleeping well. Continue tx plan. Patient educated on: diagnosis, medication risk/benefits and therapeutic strategies Reason for continued inpatient stay Substantial Risk for: med/psych decompensation Time Spent With Patient Time: Total time managing care of this patient today _20___ minutes.
[2025-01-27 19:40] VITALS: BP 137/72; PULSE 50; RESP 18; TEMP 37.1; O2SAT 93
[2025-01-28 08:00] VITALS: BP 149/73; PULSE 60; RESP 20; TEMP 36.8; O2SAT 96
[2025-01-28] MEDS: Metoprolol Succinate ER 100 MG TAB.ER.24H PO (08:27)
--- NOTE | 2025-01-28 09:43 | HO.PSYCHPN ---
Subjective Subjective Date of Service: 01/28/25 Reason For Visit: crisis Subjective Notes: Conditional Voluntary Interim History: Active on unit. social with peers. attending groups. Patient reports she is feeling depressed but forcing myself to go to groups and stay out of bed. denies SI/HI/VH/AH. [place] level to be drawn on 01/31/25. Continue tx plan. Medication Compliance: Yes Side effects from medications: No Attending Groups: Yes Mental Status Exam Mental Status Exam Narrative: Pt is alert and oriented; behavior is cooperative and calm; dressed in casual attire; mood is described as depressed ; eye contact appropriate; Speech is normal rate, volume and not pressured; thought process is organized; Thought content is on tx; denies SI/HI/VH/AH. Diagnostics Vital Signs (24Hr): Vital Signs - 24 hr 01/27/25 19:40 01/28/25 08:00 Temperature 98.7 F 98.2 F Pulse Rate 50 60 Respiratory Rate 18 20 Blood Pressure 137/72 149/73 H Pulse Oximetry 93 96 Oxygen Delivery Method Room Air Room Air BMI result Body Mass Index 35.6 Labs 01/18/25 16:26 01/25/25 07:52 Medications Medications Current Medications Acetaminophen (Acetaminophen 325 Mg Tablet) 650 mg PO Q6H PRN PRN Reason: Headache/Pain, Scale 1-10 Last Admin: 01/20/25 12:50 Dose: 650 mg Al Hydroxide/Mg Hydroxide (Magnesium Hydrox/Alum Hydrox 30 Ml Oral.Susp) 30 ml PO Q6H PRN PRN Reason: Heartburn/Nausea Amlodipine Besylate (Amlodipine Besylate 10 Mg Tablet) 10 mg PO DAILY [facility]; Protocol Last Admin: 01/28/25 08:25 Dose: 10 mg Atorvastatin Calcium (Atorvastatin Calcium 80 Mg Tablet) 80 mg PO DAILY [facility] Last Admin: 01/28/25 08:26 Dose: 80 mg Cyanocobalamin (Cyanocobalamin (Vitamin B-12) 1,000 Mcg Tablet) 1,000 mcg PO DAILY [facility] Last Admin: 01/28/25 08:27 Dose: 1,000 mcg Hydrochlorothiazide (Hydrochlorothiazide 25 Mg Tablet) 25 mg PO DAILY [facility] Last Admin: 01/28/25 08:25 Dose: 25 mg Hydroxyzine HCl (Hydroxyzine Hcl 25 Mg Tablet) 25 mg PO Q6H PRN PRN Reason: mild anxiety Last Admin: 01/27/25 13:34 Dose: 25 mg [place] Carbonate ([place] Carbonate Er 300 Mg Tablet.Er) 600 mg PO BEDTIME [facility] Last Admin: 01/27/25 20:10 Dose: 600 mg Loratadine (Loratadine 10 Mg Tablet) 10 mg PO DAILY [facility] Last Admin: 01/28/25 08:25 Dose: 10 mg Lorazepam (Lorazepam 1 Mg Tablet) 1 mg PO TID [facility] Last Admin: 01/28/25 08:28 Dose: 1 mg Losartan Potassium (Losartan Potassium 50 Mg Tablet) 100 mg PO DAILY [facility] Last Admin: 01/28/25 08:26 Dose: 100 mg Magnesium Hydroxide (Milk Of Magnesia 30 Ml Oral.Susp) 30 ml PO DAILY PRN PRN Reason: Constipation Metoprolol Succinate (Metoprolol Succinate Er 100 Mg Tab.Er.24h) 100 mg PO DAILY [facility]; Protocol Last Admin: 01/28/25 08:27 Dose: 100 mg Naproxen (Naproxen 500 Mg Tablet) 500 mg PO BID [facility] Last Admin: 01/28/25 08:27 Dose: 500 mg Nicotine Polacrilex (Nicotine Polacrilex 2 Mg Gum) 4 mg BUCCAL Q2H PRN PRN Reason: Nicotine Cravings Trazodone HCl (Trazodone Hcl 100 Mg Tablet) 300 mg PO BEDTIME [facility] Last Admin: 01/27/25 20:09 Dose: 300 mg Trazodone HCl (Trazodone Hcl 100 Mg Tablet) 100 mg PO BEDTIME PRN PRN Reason: continued insomnia Last Admin: 01/26/25 20:28 Dose: 100 mg Vilazodone HCl (Vilazodone Hcl 40 Mg Tablet) 40 mg PO DAILY [facility] Last Admin: 01/28/25 08:27 Dose: 40 mg Vitamin D (Cholecalciferol (Vitamin D3) 25 Mcg Tablet) 50 mcg PO DAILY [facility] Last Admin: 01/28/25 08:28 Dose: 50 mcg Allergies Allergies Allergy/AdvReac Type Severity Reaction Status Date / Time TRUMAN Inhibitors AdvReac Cough Verified 01/18/25 15:34 Assessment & Plan Assessment & Plan (1) Major depressive disorder, recurrent severe without psychotic features: Status: Acute Code(s): F33.2 - Major depressive disorder, recurrent severe without psychotic features (2) Chronic post-traumatic stress disorder (PTSD): Status: Acute Code(s): F43.12 - Post-traumatic stress disorder, chronic Plan Patient is a 58 year old female with history of MDD and PTSD who presented to ER which is feelings of losing control and not being able to function secondary to increased depression and anxiety. Plan: CV 15 minute safety checks Continue home medications decrease Viibryd to 40 mg p.o. daily Start: lithium ER 450 mg p.o. bedtime Obtain collateral Encourage groups ? TMS/consider mood stabilizer Discharge planning 01/21: Keeping to self. Patient continues to report feeling depressed but states she is a little better because I'm not thinking of everything in the outside . denies any side effects from medication changes. denies SI/HI/VH/AH. Encouraged to attend groups. Continue current tx plan. 01/22: Out of bed at times. Napping. Patient reports feeling good today; pt stated, I'm not feeling anxious or depressed today. I didn't sleep well last night so I'm napping today . Per nursing report, pt was active on unit and social last evening. denies SI/HI/VH/AH. Continue current tx plan. 01/23: Patient continues to report feeling good; pt stated, I feel calm. I'm going to try to get out of bed and go to groups today . denies SI/HI/VH/AH. Continue current tx plan. 01/24: Patient continues to report feeling good; pt stated, I feel like I would be ready to go home soon . [place] level ordered for tomorrow morning. denies SI/HI/VH/AH. Continue current tx plan. 01/25: Active on unit. attended some groups. Patient report feeling okay but a little depressed; lithium level 0.59 on 01/25/25. Encouraged to socialize with peers. denies SI/HI/VH/AH. Continue current tx plan. 01/26: Laying in bed. Patient reports she doesn't know how I feel. I need someone to teach me how to cope with stress ; pt encouraged to attend groups rather than laying in bed. [place] ER increased to 600mg PO bedtime. denies SI/HI/VH/AH. Continue current tx plan. 01/27: Active on unit. attending some groups. Patient reports she is feeling depressed and waiting for the medicine to help ; social with select peers. denies SI/HI/VH/AH. She reports sleeping well. Continue tx plan. 01/28: Active on unit. social with peers. attending groups. Patient reports she is feeling depressed but forcing myself to go to groups and stay out of bed. denies SI/HI/VH/AH. [place] level to be drawn on 01/31/25. Continue tx plan. Patient educated on: diagnosis, medication risk/benefits and therapeutic strategies Reason for continued inpatient stay Substantial Risk for: med/psych decompensation Time Spent With Patient Time: Total time managing care of this patient today _20___ minutes.
[2025-01-28 13:13] VITALS: BMI 36.7
[2025-01-28 19:20] VITALS: BP 126/68; PULSE 58; RESP 16; TEMP 36.8; O2SAT 95
[2025-01-29 07:15] VITALS: BP 135/68; PULSE 62; RESP 14; TEMP 36.8; O2SAT 93
[2025-01-29 08:42] VITALS: BP 135/68
[2025-01-29 08:43] VITALS: BP 135/68
[2025-01-29 08:45] VITALS: BP 135/68; PULSE 62
[2025-01-29] MEDS: Metoprolol Succinate ER 100 MG TAB.ER.24H PO (08:45)
--- NOTE | 2025-01-29 08:52 | P.PNPSI_ITS ---
Subjective Subjective Date of Service: 01/29/25 Reason For Visit: crisis Subjective Notes: Conditional Voluntary Interim History: Active on unit. social with peers. attending groups. Patient continues to report feeling down ; pt reports she is hoping to feel ready to leave on Saturday . denies SI/HI/VH/AH. [place] level to be drawn on 01/31/25. Continue tx plan. Medication Compliance: Yes Side effects from medications: No Attending Groups: Yes Mental Status Exam Mental Status Exam Narrative: Pt is alert and oriented; behavior is cooperative and calm; dressed in casual attire; mood is described as depressed ; eye contact appropriate; Speech is normal rate, volume and not pressured; thought process is organized; Thought content is on discharge; denies SI/HI/VH/AH. Diagnostics Vital Signs (24Hr): Vital Signs - 24 hr 01/28/25 19:20 01/29/25 07:15 01/29/25 08:42 Temperature 98.2 F 98.3 F Pulse Rate 58 62 Respiratory Rate 16 14 Blood Pressure 126/68 135/68 135/68 Pulse Oximetry 95 93 Oxygen Delivery Method Room Air Room Air 01/29/25 08:43 01/29/25 08:43 01/29/25 08:45 Temperature Pulse Rate 62 Respiratory Rate Blood Pressure 135/68 135/68 135/68 Pulse Oximetry Oxygen Delivery Method BMI result Body Mass Index 36.7 Labs 01/18/25 16:26 01/25/25 07:52 Medications Medications Current Medications Acetaminophen (Acetaminophen 325 Mg Tablet) 650 mg PO Q6H PRN PRN Reason: Headache/Pain, Scale 1-10 Last Admin: 01/20/25 12:50 Dose: 650 mg Al Hydroxide/Mg Hydroxide (Magnesium Hydrox/Alum Hydrox 30 Ml Oral.Susp) 30 ml PO Q6H PRN PRN Reason: Heartburn/Nausea Amlodipine Besylate (Amlodipine Besylate 10 Mg Tablet) 10 mg PO DAILY [facility]; Protocol Last Admin: 01/29/25 08:42 Dose: 10 mg Atorvastatin Calcium (Atorvastatin Calcium 80 Mg Tablet) 80 mg PO DAILY [facility] Last Admin: 01/29/25 08:42 Dose: 80 mg Cyanocobalamin (Cyanocobalamin (Vitamin B-12) 1,000 Mcg Tablet) 1,000 mcg PO DAILY [facility] Last Admin: 01/29/25 08:45 Dose: 1,000 mcg Hydrochlorothiazide (Hydrochlorothiazide 25 Mg Tablet) 25 mg PO DAILY [facility] Last Admin: 01/29/25 08:43 Dose: 25 mg Hydroxyzine HCl (Hydroxyzine Hcl 25 Mg Tablet) 25 mg PO Q6H PRN PRN Reason: mild anxiety Last Admin: 01/27/25 13:34 Dose: 25 mg [place] Carbonate ([place] Carbonate Er 300 Mg Tablet.Er) 600 mg PO BEDTIME [facility] Last Admin: 01/28/25 20:41 Dose: 600 mg Loratadine (Loratadine 10 Mg Tablet) 10 mg PO DAILY [facility] Last Admin: 01/29/25 08:41 Dose: 10 mg Lorazepam (Lorazepam 1 Mg Tablet) 1 mg PO TID [facility] Last Admin: 01/29/25 08:41 Dose: 1 mg Losartan Potassium (Losartan Potassium 50 Mg Tablet) 100 mg PO DAILY [facility] Last Admin: 01/29/25 08:43 Dose: 100 mg Magnesium Hydroxide (Milk Of Magnesia 30 Ml Oral.Susp) 30 ml PO DAILY PRN PRN Reason: Constipation Metoprolol Succinate (Metoprolol Succinate Er 100 Mg Tab.Er.24h) 100 mg PO DAILY [facility]; Protocol Last Admin: 01/29/25 08:45 Dose: 100 mg Naproxen (Naproxen 500 Mg Tablet) 500 mg PO BID [facility] Last Admin: 01/29/25 08:43 Dose: 500 mg Nicotine Polacrilex (Nicotine Polacrilex 2 Mg Gum) 4 mg BUCCAL Q2H PRN PRN Reason: Nicotine Cravings Trazodone HCl (Trazodone Hcl 100 Mg Tablet) 300 mg PO BEDTIME [facility] Last Admin: 01/28/25 20:40 Dose: 300 mg Trazodone HCl (Trazodone Hcl 100 Mg Tablet) 100 mg PO BEDTIME PRN PRN Reason: continued insomnia Last Admin: 01/26/25 20:28 Dose: 100 mg Vilazodone HCl (Vilazodone Hcl 40 Mg Tablet) 40 mg PO DAILY [facility] Last Admin: 01/29/25 08:45 Dose: 40 mg Vitamin D (Cholecalciferol (Vitamin D3) 25 Mcg Tablet) 50 mcg PO DAILY [facility] Last Admin: 01/29/25 08:46 Dose: 50 mcg Allergies Allergies Allergy/AdvReac Type Severity Reaction Status Date / Time TRUMAN Inhibitors AdvReac Cough Verified 01/18/25 15:34 Assessment & Plan Assessment & Plan (1) Major depressive disorder, recurrent severe without psychotic features: Status: Acute Code(s): F33.2 - Major depressive disorder, recurrent severe without psychotic features (2) Chronic post-traumatic stress disorder (PTSD): Status: Acute Code(s): F43.12 - Post-traumatic stress disorder, chronic Plan Patient is a 58 year old female with history of MDD and PTSD who presented to ER which is feelings of losing control and not being able to function secondary to increased depression and anxiety. Plan: CV 15 minute safety checks Continue home medications decrease Viibryd to 40 mg p.o. daily Start: lithium ER 450 mg p.o. bedtime Obtain collateral Encourage groups ? TMS/consider mood stabilizer Discharge planning 01/21: Keeping to self. Patient continues to report feeling depressed but states she is a little better because I'm not thinking of everything in the outside . denies any side effects from medication changes. denies SI/HI/VH/AH. Encouraged to attend groups. Continue current tx plan. 01/22: Out of bed at times. Napping. Patient reports feeling good today; pt stated, I'm not feeling anxious or depressed today. I didn't sleep well last night so I'm napping today . Per nursing report, pt was active on unit and social last evening. denies SI/HI/VH/AH. Continue current tx plan. 01/23: Patient continues to report feeling good; pt stated, I feel calm. I'm going to try to get out of bed and go to groups today . denies SI/HI/VH/AH. Continue current tx plan. 01/24: Patient continues to report feeling good; pt stated, I feel like I would be ready to go home soon . [place] level ordered for tomorrow morning. denies SI/HI/VH/AH. Continue current tx plan. 01/25: Active on unit. attended some groups. Patient report feeling okay but a little depressed; lithium level 0.59 on 01/25/25. Encouraged to socialize with peers. denies SI/HI/VH/AH. Continue current tx plan. 01/26: Laying in bed. Patient reports she doesn't know how I feel. I need someone to teach me how to cope with stress ; pt encouraged to attend groups rather than laying in bed. [place] ER increased to 600mg PO bedtime. denies SI/HI/VH/AH. Continue current tx plan. 01/27: Active on unit. attending some groups. Patient reports she is feeling depressed and waiting for the medicine to help ; social with select peers. denies SI/HI/VH/AH. She reports sleeping well. Continue tx plan. 01/28: Active on unit. social with peers. attending groups. Patient reports she is feeling depressed but forcing myself to go to groups and stay out of bed. denies SI/HI/VH/AH. [place] level to be drawn on 01/31/25. Continue tx plan. 01/29: Active on unit. social with peers. attending groups. Patient continues to report feeling down ; pt reports she is hoping to feel ready to leave on Saturday . denies SI/HI/VH/AH. [place] level to be drawn on 01/31/25. Continue tx plan. Patient educated on: diagnosis, medication risk/benefits and therapeutic strategies Reason for continued inpatient stay Substantial Risk for: med/psych decompensation Time Spent With Patient Time: Total time managing care of this patient today _20___ minutes.
[2025-01-29 20:00] VITALS: BP 126/60; PULSE 89; RESP 18; TEMP 36.7; O2SAT 95
--- NOTE | 2025-01-30 07:44 | P.PNPSI_ITS ---
Subjective Subjective Date of Service: 01/30/25 Reason For Visit: crisis Subjective Notes: Conditional Voluntary Interim History: Active on unit. social with peers. attending groups. Overall reports things are going okay. Hopeful that medication regimen will help with mood issues still feeling down depressed. No active SI. No psychosis. Sleeping okay. Mental Status Exam Mental Status Exam Narrative: Pt is alert and oriented; behavior is cooperative and calm; dressed in casual attire; mood is described as still down ; eye contact appropriate; Speech is normal rate, volume and not pressured; thought process is organized; Thought content is on discharge; denies SI/HI/VH/AH. Diagnostics Vital Signs (24Hr): Vital Signs - 24 hr 01/29/25 08:42 01/29/25 08:43 01/29/25 08:43 Temperature Pulse Rate Respiratory Rate Blood Pressure 135/68 135/68 135/68 Pulse Oximetry Oxygen Delivery Method 01/29/25 08:45 01/29/25 20:00 Temperature 98.1 F Pulse Rate 62 89 Respiratory Rate 18 Blood Pressure 135/68 126/60 Pulse Oximetry 95 Oxygen Delivery Method Room Air BMI result Body Mass Index 36.7 Labs 01/18/25 16:26 01/25/25 07:52 Medications Medications Current Medications Acetaminophen (Acetaminophen 325 Mg Tablet) 650 mg PO Q6H PRN PRN Reason: Headache/Pain, Scale 1-10 Last Admin: 01/20/25 12:50 Dose: 650 mg Al Hydroxide/Mg Hydroxide (Magnesium Hydrox/Alum Hydrox 30 Ml Oral.Susp) 30 ml PO Q6H PRN PRN Reason: Heartburn/Nausea Amlodipine Besylate (Amlodipine Besylate 10 Mg Tablet) 10 mg PO DAILY [facility]; Protocol Last Admin: 01/29/25 08:42 Dose: 10 mg Atorvastatin Calcium (Atorvastatin Calcium 80 Mg Tablet) 80 mg PO DAILY [facility] Last Admin: 01/29/25 08:42 Dose: 80 mg Cyanocobalamin (Cyanocobalamin (Vitamin B-12) 1,000 Mcg Tablet) 1,000 mcg PO DAILY [facility] Last Admin: 01/29/25 08:45 Dose: 1,000 mcg Hydrochlorothiazide (Hydrochlorothiazide 25 Mg Tablet) 25 mg PO DAILY [facility] Last Admin: 01/29/25 08:43 Dose: 25 mg Hydroxyzine HCl (Hydroxyzine Hcl 25 Mg Tablet) 25 mg PO Q6H PRN PRN Reason: mild anxiety Last Admin: 01/27/25 13:34 Dose: 25 mg [place] Carbonate ([place] Carbonate Er 300 Mg Tablet.Er) 600 mg PO BEDTIME [facility] Last Admin: 01/29/25 21:02 Dose: 600 mg Loratadine (Loratadine 10 Mg Tablet) 10 mg PO DAILY [facility] Last Admin: 01/29/25 08:41 Dose: 10 mg Lorazepam (Lorazepam 1 Mg Tablet) 1 mg PO TID [facility] Last Admin: 01/29/25 21:02 Dose: 1 mg Losartan Potassium (Losartan Potassium 50 Mg Tablet) 100 mg PO DAILY [facility] Last Admin: 01/29/25 08:43 Dose: 100 mg Magnesium Hydroxide (Milk Of Magnesia 30 Ml Oral.Susp) 30 ml PO DAILY PRN PRN Reason: Constipation Metoprolol Succinate (Metoprolol Succinate Er 100 Mg Tab.Er.24h) 100 mg PO DAILY [facility]; Protocol Last Admin: 01/29/25 08:45 Dose: 100 mg Naproxen (Naproxen 500 Mg Tablet) 500 mg PO BID [facility] Last Admin: 01/29/25 21:01 Dose: 500 mg Nicotine Polacrilex (Nicotine Polacrilex 2 Mg Gum) 4 mg BUCCAL Q2H PRN PRN Reason: Nicotine Cravings Trazodone HCl (Trazodone Hcl 100 Mg Tablet) 300 mg PO BEDTIME [facility] Last Admin: 01/29/25 21:02 Dose: 300 mg Trazodone HCl (Trazodone Hcl 100 Mg Tablet) 100 mg PO BEDTIME PRN PRN Reason: continued insomnia Last Admin: 01/29/25 21:03 Dose: 100 mg Vilazodone HCl (Vilazodone Hcl 40 Mg Tablet) 40 mg PO DAILY [facility] Last Admin: 01/29/25 08:45 Dose: 40 mg Vitamin D (Cholecalciferol (Vitamin D3) 25 Mcg Tablet) 50 mcg PO DAILY [facility] Last Admin: 01/29/25 08:46 Dose: 50 mcg Allergies Allergies Allergy/AdvReac Type Severity Reaction Status Date / Time TRUMAN Inhibitors AdvReac Cough Verified 01/18/25 15:34 Assessment & Plan Assessment & Plan (1) Major depressive disorder, recurrent severe without psychotic features: Status: Acute Code(s): F33.2 - Major depressive disorder, recurrent severe without psychotic features (2) Chronic post-traumatic stress disorder (PTSD): Status: Acute Code(s): F43.12 - Post-traumatic stress disorder, chronic Plan Patient is a 58 year old female with history of MDD and PTSD who presented to ER which is feelings of losing control and not being able to function secondary to increased depression and anxiety. Plan: CV 15 minute safety checks Continue home medications decrease Viibryd to 40 mg p.o. daily Start: lithium ER 450 mg p.o. bedtime Obtain collateral Encourage groups ? TMS/consider mood stabilizer Discharge planning 01/21: Keeping to self. Patient continues to report feeling depressed but states she is a little better because I'm not thinking of everything in the outside . denies any side effects from medication changes. denies SI/HI/VH/AH. Encouraged to attend groups. Continue current tx plan. 01/22: Out of bed at times. Napping. Patient reports feeling good today; pt stated, I'm not feeling anxious or depressed today. I didn't sleep well last night so I'm napping today . Per nursing report, pt was active on unit and social last evening. denies SI/HI/VH/AH. Continue current tx plan. 01/23: Patient continues to report feeling good; pt stated, I feel calm. I'm going to try to get out of bed and go to groups today . denies SI/HI/VH/AH. Continue current tx plan. 01/24: Patient continues to report feeling good; pt stated, I feel like I would be ready to go home soon . [place] level ordered for tomorrow morning. denies SI/HI/VH/AH. Continue current tx plan. 01/25: Active on unit. attended some groups. Patient report feeling okay but a little depressed; lithium level 0.59 on 01/25/25. Encouraged to socialize with peers. denies SI/HI/VH/AH. Continue current tx plan. 01/26: Laying in bed. Patient reports she doesn't know how I feel. I need someone to teach me how to cope with stress ; pt encouraged to attend groups rather than laying in bed. [place] ER increased to 600mg PO bedtime. denies SI/HI/VH/AH. Continue current tx plan. 01/27: Active on unit. attending some groups. Patient reports she is feeling depressed and waiting for the medicine to help ; social with select peers. denies SI/HI/VH/AH. She reports sleeping well. Continue tx plan. 01/28: Active on unit. social with peers. attending groups. Patient reports she is feeling depressed but forcing myself to go to groups and stay out of bed. denies SI/HI/VH/AH. [place] level to be drawn on 01/31/25. Continue tx plan. 01/29: Active on unit. social with peers. attending groups. Patient continues to report feeling down ; pt reports she is hoping to feel ready to leave on Saturday . denies SI/HI/VH/AH. [place] level to be drawn on 01/31/25. Continue tx plan. 01/30/2025: No changes and lithium level scheduled for tomorrow Reason for continued inpatient stay Substantial Risk for: harm to self and inability to function Time Spent With Patient Time: Total time managing care of this patient today ____ minutes.
[2025-01-30 08:00] VITALS: BP 140/69; PULSE 65; RESP 20; TEMP 36.4; O2SAT 97
[2025-01-30 08:31] VITALS: BP 140/69
[2025-01-30 08:33] VITALS: BP 140/69
[2025-01-30 08:34] VITALS: BP 140/69; PULSE 65
[2025-01-30] MEDS: Metoprolol Succinate ER 100 MG TAB.ER.24H PO (08:34)
[2025-01-30 20:00] VITALS: BP 129/62; PULSE 57; RESP 16; TEMP 36.9; O2SAT 95
[2025-01-31 08:00] VITALS: BP 128/64; PULSE 67; RESP 16; TEMP 36.4; O2SAT 94
[2025-01-31] MEDS: Metoprolol Succinate ER 100 MG TAB.ER.24H PO (08:36)
[2025-01-31 10:14] LABS: Lithium 0.79 mmol/L (0.60-1.20)
[2025-01-31 10:32] LABS: Anion Gap 13 (12-20); Blood Urea Nitrogen 17 mg/dL (9-16); Carbon Dioxide 31 mmol/L (22-29); Chloride 104 mmol/L (96-108); Creatinine Clr Calc Pharmacy 60.5; Estimated Glomerular Filt Rate 54; Potassium 4.0 mmol/L (3.3-5.1); Sodium 144 mmol/L (135-145)
--- NOTE | 2025-01-31 11:30 | P.PNPSI_ITS ---
Subjective Subjective Date of Service: 01/31/25 Reason For Visit: crisis Interim History: Active on unit. social with peers. attending groups. Overall reports things are going okay. Does report feeling tired. [place] level 0.79 today. TSH is elevated at over 10. T4 on the lower end of normal. We will request hospitalist consult regarding same i.e. further workup verses observation after discharge verses treatment . No SI No psychosis. Sleeping okay. Medication Compliance: Yes Side effects from medications: No Attending Groups: Intermittent Review of Systems Acute medical concerns: No Review of Systems Review of Systems nothing acute Mental Status Exam Mental Status Exam Narrative: Pt is alert and oriented; behavior is cooperative and calm; dressed in casual attire; mood is described as still down ; eye contact appropriate; Speech is normal rate, volume and not pressured; thought process is organized; Thought content is on discharge; denies SI/HI/VH/AH. Diagnostics Vital Signs (24Hr): Vital Signs - 24 hr 01/30/25 20:00 01/31/25 08:00 Temperature 98.4 F 97.6 F Pulse Rate 57 67 Respiratory Rate 16 16 Blood Pressure 129/62 128/64 Pulse Oximetry 95 94 Oxygen Delivery Method Room Air Room Air BMI result Body Mass Index 36.7 Labs 01/18/25 16:26 01/31/25 08:39 Labs: Laboratory Results - last 48 hr 01/31/25 08:39 Sodium 144 Potassium 4.0 Chloride 104 Carbon Dioxide 31 H Anion Gap 13 BUN 17 H Creatinine 1.02 Estim Creat Clear Calc 60.5 Estimated GFR 54 TSH 10.80 H [place] 0.79 Medications Medications Current Medications Acetaminophen (Acetaminophen 325 Mg Tablet) 650 mg PO Q6H PRN PRN Reason: Headache/Pain, Scale 1-10 Last Admin: 01/30/25 19:47 Dose: 650 mg Al Hydroxide/Mg Hydroxide (Magnesium Hydrox/Alum Hydrox 30 Ml Oral.Susp) 30 ml PO Q6H PRN PRN Reason: Heartburn/Nausea Amlodipine Besylate (Amlodipine Besylate 10 Mg Tablet) 10 mg PO DAILY [facility]; Protocol Last Admin: 01/31/25 08:35 Dose: 10 mg Atorvastatin Calcium (Atorvastatin Calcium 80 Mg Tablet) 80 mg PO DAILY [facility] Last Admin: 01/31/25 08:35 Dose: 80 mg Cyanocobalamin (Cyanocobalamin (Vitamin B-12) 1,000 Mcg Tablet) 1,000 mcg PO DAILY [facility] Last Admin: 01/31/25 08:37 Dose: 1,000 mcg Hydrochlorothiazide (Hydrochlorothiazide 25 Mg Tablet) 25 mg PO DAILY [facility] Last Admin: 01/31/25 08:35 Dose: 25 mg Hydroxyzine HCl (Hydroxyzine Hcl 25 Mg Tablet) 25 mg PO Q6H PRN PRN Reason: mild anxiety Last Admin: 01/27/25 13:34 Dose: 25 mg [place] Carbonate ([place] Carbonate Er 300 Mg Tablet.Er) 600 mg PO BEDTIME [facility] Last Admin: 01/30/25 21:13 Dose: 600 mg Loratadine (Loratadine 10 Mg Tablet) 10 mg PO DAILY [facility] Last Admin: 01/31/25 08:35 Dose: 10 mg Lorazepam (Lorazepam 1 Mg Tablet) 1 mg PO TID [facility] Last Admin: 01/31/25 08:35 Dose: 1 mg Losartan Potassium (Losartan Potassium 50 Mg Tablet) 100 mg PO DAILY [facility] Last Admin: 01/31/25 08:37 Dose: 100 mg Magnesium Hydroxide (Milk Of Magnesia 30 Ml Oral.Susp) 30 ml PO DAILY PRN PRN Reason: Constipation Metoprolol Succinate (Metoprolol Succinate Er 100 Mg Tab.Er.24h) 100 mg PO DAILY [facility]; Protocol Last Admin: 01/31/25 08:36 Dose: 100 mg Naproxen (Naproxen 500 Mg Tablet) 500 mg PO BID [facility] Last Admin: 01/31/25 08:36 Dose: 500 mg Nicotine Polacrilex (Nicotine Polacrilex 2 Mg Gum) 4 mg BUCCAL Q2H PRN PRN Reason: Nicotine Cravings Trazodone HCl (Trazodone Hcl 100 Mg Tablet) 300 mg PO BEDTIME [facility] Last Admin: 01/30/25 21:14 Dose: 300 mg Trazodone HCl (Trazodone Hcl 100 Mg Tablet) 100 mg PO BEDTIME PRN PRN Reason: continued insomnia Last Admin: 01/30/25 21:14 Dose: 100 mg Vilazodone HCl (Vilazodone Hcl 40 Mg Tablet) 40 mg PO DAILY [facility] Last Admin: 01/31/25 08:37 Dose: 40 mg Vitamin D (Cholecalciferol (Vitamin D3) 25 Mcg Tablet) 50 mcg PO DAILY [facility] Last Admin: 01/31/25 08:35 Dose: 50 mcg Allergies Allergies Allergy/AdvReac Type Severity Reaction Status Date / Time TRUMAN Inhibitors AdvReac Cough Verified 01/18/25 15:34 Assessment & Plan Assessment & Plan (1) Major depressive disorder, recurrent severe without psychotic features: Status: Acute Code(s): F33.2 - Major depressive disorder, recurrent severe without psychotic features (2) Chronic post-traumatic stress disorder (PTSD): Status: Acute Code(s): F43.12 - Post-traumatic stress disorder, chronic Plan Patient is a 58 year old female with history of MDD and PTSD who presented to ER which is feelings of losing control and not being able to function secondary to increased depression and anxiety. Plan: CV 15 minute safety checks Continue home medications decrease Viibryd to 40 mg p.o. daily Start: lithium ER 450 mg p.o. bedtime Obtain collateral Encourage groups ? TMS/consider mood stabilizer Discharge planning 01/21: Keeping to self. Patient continues to report feeling depressed but states she is a little better because I'm not thinking of everything in the outside . denies any side effects from medication changes. denies SI/HI/VH/AH. Encouraged to attend groups. Continue current tx plan. 01/22: Out of bed at times. Napping. Patient reports feeling good today; pt stated, I'm not feeling anxious or depressed today. I didn't sleep well last night so I'm napping today . Per nursing report, pt was active on unit and social last evening. denies SI/HI/VH/AH. Continue current tx plan. 01/23: Patient continues to report feeling good; pt stated, I feel calm. I'm going to try to get out of bed and go to groups today . denies SI/HI/VH/AH. Continue current tx plan. 01/24: Patient continues to report feeling good; pt stated, I feel like I would be ready to go home soon . [place] level ordered for tomorrow morning. denies SI/HI/VH/AH. Continue current tx plan. 01/25: Active on unit. attended some groups. Patient report feeling okay but a little depressed; lithium level 0.59 on 01/25/25. Encouraged to socialize with peers. denies SI/HI/VH/AH. Continue current tx plan. 01/26: Laying in bed. Patient reports she doesn't know how I feel. I need someone to teach me how to cope with stress ; pt encouraged to attend groups rather than laying in bed. [place] ER increased to 600mg PO bedtime. denies SI/HI/VH/AH. Continue current tx plan. 01/27: Active on unit. attending some groups. Patient reports she is feeling depressed and waiting for the medicine to help ; social with select peers. denies SI/HI/VH/AH. She reports sleeping well. Continue tx plan. 01/28: Active on unit. social with peers. attending groups. Patient reports she is feeling depressed but forcing myself to go to groups and stay out of bed. denies SI/HI/VH/AH. [place] level to be drawn on 01/31/25. Continue tx plan. 01/29: Active on unit. social with peers. attending groups. Patient continues to report feeling down ; pt reports she is hoping to feel ready to leave on Saturday . denies SI/HI/VH/AH. [place] level to be drawn on 01/31/25. Continue tx plan. 01/30/2025: No changes and lithium level scheduled for tomorrow 01/31: lithium level 0.79. Will continue that dose. TSH is elevated at over 10, T4 lower end of normal. Hospitalist consult regarding same i.e. further workup verses observation after discharge verses treatment. Reason for continued inpatient stay Substantial Risk for: rapid decompensation Time Spent With Patient Time: Total time managing care of this patient today ____ minutes.
[2025-01-31 11:34] LABS: Free T4 (Free Thyroxine) 0.73 ng/dL (0.71-1.85)
--- NOTE | 2025-01-31 15:33 | PM.EVENT ---
Event Note Date of Service: 01/31/25 Event Note: Elevated TSH with normal free t4 c/w subclinical hypothyroidism recently started on lithium, less likely lithium induced hypothyroidism recommend to repeat thyroid studies in 4-6 weeks and if TSH remains elevated above 10 consider starting low dose synthroid if pt becomes symptomatic, can re-evaluate need to start synthroid sooner Time Spent With Patient Time: Total time managing care of this patient today ____ minutes.
[2025-01-31 20:00] VITALS: BP 125/64; PULSE 63; RESP 18; TEMP 36.7; O2SAT 96
[2025-02-01 07:37] VITALS: BP 144/63; PULSE 64; RESP 16; TEMP 36.6; O2SAT 96
[2025-02-01] MEDS: Metoprolol Succinate ER 100 MG TAB.ER.24H PO (08:17)
--- NOTE | 2025-02-01 10:24 | PM.PSYDC ---
DS: Providers Provider Date of Service: 02/01/25 Date of admission: 01/19/25 10:56 Date of discharge: 02/01/25 Primary care physician: Sudha Block MD Attending physician on admission: Josi Fink Consults: 01/31/25 15:11 Consult to Hospitalist Routine Comment: Consulting Provider: [facility] Hospitalists Reason For Exam: abnormal TSH/T4low end N. ?watch, ?work up ?manage Attending physician on discharge: Jovana Hernandez DS: Diagnosis Discharge Diagnosis (1) Major depressive disorder, recurrent severe without psychotic features: Status: Acute (2) Chronic post-traumatic stress disorder (PTSD): Status: Acute DS: Medications Discharge Medications Home Medications: Home Medications ?Medication ?Instructions ?Recorded ?Confirmed vibegron 75 mg tablet (Gemtesa) 75 mg PO DAILY 01/19/25 01/19/25 Previous Rx's ?Medication ?Instructions ?Recorded amlodipine 10 mg tablet 10 mg PO DAILY HTN #30 tabs 02/01/25 cholecalciferol (vitamin D3) 50 50 mcg PO DAILY supplement #30 02/01/25 mcg (2,000 unit) capsule caps cyanocobalamin (vitamin B-12) 1,000 mcg PO DAILY supplement #30 02/01/25 1,000 mcg tablet,extended release tabs lithium carbonate 300 mg 600 mg (2 x 300 mg) PO BEDTIME 02/01/25 tablet,extended release Mood #60 tabs loratadine 10 mg capsule (Allergy 10 mg PO DAILY Allergy #30 caps 02/01/25 Relief (loratadine)) lorazepam 1 mg tablet 1 mg PO TID Severe anxiety #60 tabs 02/01/25 losartan 100 1 tab PO DAILY HTN #30 tabs 02/01/25 mg-hydrochlorothiazide 25 mg tablet meloxicam 15 mg tablet 15 mg PO DAILY Pain #30 tabs 02/01/25 metoprolol succinate 100 mg 100 mg PO DAILY HTN #30 tabs 02/01/25 tablet,extended release 24 hr rosuvastatin 40 mg tablet 40 mg PO DAILY Elevated Lipid 02/01/25 profile #30 tabs trazodone 100 mg tablet 300 mg (3 x 100 mg) PO BEDTIME 02/01/25 Insomnia #30 tabs vilazodone 40 mg tablet 40 mg PO QAM Depression #30 tabs 02/01/25 Mental Status Exam Mental Status Exam Narrative: Patient presents well-groomed, casually dressed. Affect is euthymic with full range. Speech is clear and coherent. Thought process is linear and logical. Thought content is appropriate and relevant. Patient denies suicidal or homicidal ideation intent or plan. No overt psychotic symptoms elicited. Insight is good. Judgment is good. Data Data Completed and Pending Completed studies during hospitalization [Text1]: 01/31/25 08:39 Sodium 144 Potassium 4.0 Chloride 104 Carbon Dioxide 31 H Anion Gap 13 BUN 17 H Creatinine 1.02 Estim Creat Clear Calc 60.5 Estimated GFR 54 TSH 10.80 H Free T4 0.73 [place] 0.79 DS: Summary Hospital Course Hospital Course: Per admitting provider notes: Patient is a 58 year old female with history of MDD and PTSD who presented to ER which is feelings of losing control and not being able to function secondary to increased depression and anxiety. decrease Viibryd to 40 mg p.o. daily Start: lithium ER 450 mg p.o. bedtime. 01/21: Keeping to self. Patient continues to report feeling depressed but states she is a little better because I'm not thinking of everything in the outside . denies any side effects from medication changes. denies SI/HI/VH/AH. Encouraged to attend groups. Continue current tx plan. 01/22: Out of bed at times. Napping. Patient reports feeling good today; pt stated, I'm not feeling anxious or depressed today. I didn't sleep well last night so I'm napping today . Per nursing report, pt was active on unit and social last evening. denies SI/HI/VH/AH. Continue current tx plan. 01/23: Patient continues to report feeling good; pt stated, I feel calm. I'm going to try to get out of bed and go to groups today . denies SI/HI/VH/AH. Continue current tx plan. 01/24: Patient continues to report feeling good; pt stated, I feel like I would be ready to go home soon . [place] level ordered for tomorrow morning. denies SI/HI/VH/AH. Continue current tx plan. 01/25: Active on unit. attended some groups. Patient report feeling okay but a little depressed; lithium level 0.59 on 01/25/25. Encouraged to socialize with peers. denies SI/HI/VH/AH. Continue current tx plan. 01/26: Laying in bed. Patient reports she doesn't know how I feel. I need someone to teach me how to cope with stress ; pt encouraged to attend groups rather than laying in bed. [place] ER increased to 600mg PO bedtime. denies SI/HI/VH/AH. Continue current tx plan. 01/27: Active on unit. attending some groups. Patient reports she is feeling depressed and waiting for the medicine to help ; social with select peers. denies SI/HI/VH/AH. She reports sleeping well. Continue tx plan. 01/28: Active on unit. social with peers. attending groups. Patient reports she is feeling depressed but forcing myself to go to groups and stay out of bed. denies SI/HI/VH/AH. [place] level to be drawn on 01/31/25. Continue tx plan. 01/29: Active on unit. social with peers. attending groups. Patient continues to report feeling down ; pt reports she is hoping to feel ready to leave on Saturday . denies SI/HI/VH/AH. [place] level to be drawn on 01/31/25. Continue tx plan. 01/30/2025: No changes and lithium level scheduled for tomorrow 01/31: lithium level 0.79. Will continue that dose. TSH is elevated at over 10, T4 lower end of normal. Hospitalist consult regarding same i.e. further workup verses observation after discharge verses treatment. 02/01/25: Patient is having no safety concerns, denies suicidal thoughts, denies hallucinations. Son will pick her up by 10:30. Medication sent to prefer pharmacy. Discharge patient home. Time spent discussing smoking cessation with patient: 3 to 10 minutes Status at Discharge Cognitive/behavioral status at discharge: CONDITION ON DISCHARGE: CURRENT STATUS IT RELATES TO ADMISSION CRITERIA: Stable, improved. Improvements in depression, anxiety, and suicidal ideation. Improvements in sleep, energy, and appetite. and no hallucination or paranoia/delusional thought. Functional status at discharge: independent ambulation Overall status at discharge: patient is back to baseline Time Spent with Patient Time attestation: Total time managing care of this patient today ____ minutes. Time spent: Greater than 30 minutes Discharge Plan Discharge Anticipated Discharge Date/Time: 02/01/25 10:19 Patient Disposition: Home, Self-Care Discharge Diagnosis: PTSD, MDD, HTN. Referrals: Valery - Community Partner [facility] [Other] - 1 Week Referral Note: Please call after discharge for follow up with your [facility] Community Partner. Jennifer (therapist [facility]) [Other] - 02/05/25 2:00 pm Referral Note: appointment Linda Strong ([facility]) [Other] - 03/10/25 9:00 am Referral Note: In person appointment Sudha Block MD [Primary Care Provider, Internal Medicine] - 1 Week Referral Note: 01-27-25 Please contact your primary care provider to schedule a follow up appt within 7-10 days of discharge. No release on file. Discharge Medications: New lithium carbonate 300 mg Tablet Extended Release 600 mg PO BEDTIME Qty: 60 0RF trazodone 100 mg Tablet 300 mg PO BEDTIME Qty: 30 0RF Continued Gemtesa 75 mg Tablet 75 mg PO DAILY cyanocobalamin (vitamin B-12) 1,000 mcg tablet extended release 1,000 mcg PO DAILY Qty: 30 0RF meloxicam 15 mg tablet 15 mg PO DAILY Qty: 30 0RF metoprolol succinate 100 mg tablet extended release 24 hr 100 mg PO DAILY Qty: 30 0RF losartan-hydrochlorothiazide 100-25 mg tablet 1 tab PO DAILY Qty: 30 0RF amlodipine 10 mg tablet 10 mg PO DAILY Qty: 30 0RF rosuvastatin 40 mg Tablet 40 mg PO DAILY Qty: 30 0RF cholecalciferol (vitamin D3) 50 mcg (2,000 unit) capsule 50 mcg PO DAILY Qty: 30 0RF Allergy Relief (loratadine) 10 mg capsule 10 mg PO DAILY Qty: 30 0RF vilazodone 40 mg tablet 40 mg PO QAM Qty: 30 0RF Rx Instructions: taken with 20mg for 60mg total Changed lorazepam 1 mg tablet 1 mg PO TID Qty: 60 0RF Discontinued trazodone 100 mg Tablet See Rx Instructions .ROUTE .COMPLEX Rx Instructions: Take 200-400mg daily vilazodone 20 mg Tablet 20 mg PO DAILY Rx Instructions: must administer with a meal/food to be taken with 40mg tablet for 60mg totals Discharge Orders: Discharge Order (Routine); Ordered 02/01/25 Ordered By: Jovana Hernandez Diet: Regular diet Activity on Discharge: As tolerated Stand Alone Forms: Patient Portal Discharge page, Community Support Print Language: Portuguese Care Plan Goals: Maintain mood and safe behaviors Take medications as prescribed Continue to pursue sobriety Practice coping skills Continue with outpatient providers and reach out to them as needed Health Concerns: Mood stability and behaviors Sobriety Plan of Treatment: Follow up with your PCP, psychiatric provider and other outpatient providers regarding above concerns Take medications as prescribed Assessment: Assessment: Risk assessment at time of discharge: Patient was interviewed prior to discharge and found to be fully oriented and without any SI or HI. Patient has improved insight and judgment and wants to continue treatment. Patient is not in imminent risk of harm to self or others and has a safety plan that includes presenting to the closest ER or calling 911 if feeling unsafe. Patient has been observed closely by nursing and unit staff throughout admission; patient has not engaged in any behaviors that suggest dangerousness to self or others and has demonstrated appropriate behaviors and impulse control Discharge Date/Time: 02/01/25 10:38
--- NOTE | 2025-02-04 15:17 | PM.EVENT ---
Event Note Date of Service: 02/04/25 Event Note: call from pharmacy regarding lithium anti htn interaction spoke to pt to dec lithium to 300 mg ck lithium level in am Time Spent With Patient Time: Total time managing care of this patient today _15_ minutes.
== END 2025-02-01 10:38 | disposition home or self-care (01) | DRG 885 ==
LOC: HO.ED 01-19 11:37 → HO.PADLT16 01-19 12:23
PROVIDERS: Physician Assistant Medical; Admitting Provider Registered Nurse; Emergency Provider Emergency Medicine; PCP Internal Medicine; Visit Provider Psychiatry & Neurology Psychiatry
DX: F33.2 Major depressive disorder, recurrent severe without psychotic features (principal); F43.12 Post-traumatic stress disorder, chronic; E03.8 Other specified hypothyroidism; I10 Essential (primary) hypertension; F17.210 Nicotine dependence, cigarettes, uncomplicated; Z71.6 Tobacco abuse counseling; Z79.899 Other long term (current) drug therapy
CPT/HCPCS: 36415; 80051; 80053; 80061; 80143; 80178; 80179; 80307; 81001; 82565; 83036; 84439; 84443; 84520; 85025; 93005; 99285; S9485

== ENCOUNTER → 2025-01-19 07:38 | Outpatient (BNV) | payer OTHER, SELFPAY | PROVIDERS: Admitting Provider Registered Nurse; Emergency Provider Emergency Medicine; PCP Internal Medicine; Visit Provider Internal Medicine | DX: I49.9 Cardiac arrhythmia, unspecified (principal); R00.1 Bradycardia, unspecified | CPT/HCPCS: 93010 ==

== ENCOUNTER → 2025-01-19 10:56 | Outpatient (BNV) | payer OTHER, SELFPAY | PROVIDERS: Admitting Provider Registered Nurse; Emergency Provider Emergency Medicine; PCP Internal Medicine; Responsible Provider Registered Nurse; Visit Provider Registered Nurse | DX: F33.2 Major depressive disorder, recurrent severe without psychotic features (principal); F43.12 Post-traumatic stress disorder, chronic | CPT/HCPCS: 90792; 99231; 99232 ==

== ENCOUNTER 2025-02-05 09:04 | Outpatient (REF) | payer OTHER, SELFPAY ==
[2025-02-05 11:25] LABS: Lithium 0.64 mmol/L (0.60-1.20)
[2025-02-05 11:44] LABS: Anion Gap 14 (12-20); Blood Urea Nitrogen 14 mg/dL (9-16); Calcium 8.9 mg/dL (8.4-10.2); Carbon Dioxide 29 mmol/L (22-29); Chloride 102 mmol/L (96-108); Estimated Glomerular Filt Rate 47; Potassium 3.8 mmol/L (3.3-5.1); Sodium 141 mmol/L (135-145)
== END 2025-02-05 09:05 | disposition home or self-care (01) ==
LOC: HO.LAB 09:04
PROVIDERS: PCP Internal Medicine; Visit Provider Psychiatry & Neurology Psychiatry
DX: I10 Essential (primary) hypertension (principal); F33.2 Major depressive disorder, recurrent severe without psychotic features; F43.12 Post-traumatic stress disorder, chronic
CPT/HCPCS: 36415; 80048; 80178